=== PATIENT | female | born 1980 | race African-American/Black ===

== ENCOUNTER → 2017-09-11 10:17 | Outpatient (CLI) | payer OTHER, SELFPAY ==
[2017-09-11 12:41] LABS: T4 Free Direct 1.08 ng/dL (0.76-1.46); Thyroid Stim Hormone (TSH) 1.27 uIU/mL (0.358-3.74)
== END ==
PROVIDERS: Family Provider Internal Medicine; PCP Internal Medicine; Visit Provider Internal Medicine
DX: E04.9 Nontoxic goiter, unspecified (principal); L05.01 Pilonidal cyst with abscess
CPT/HCPCS: 36415; 84439; 84443; 87070; 87075; 87076; 87077; 87186; 87205

== ENCOUNTER 2017-10-02 16:58 | Emergency (ER) | payer OTHER, SELFPAY ==
[2017-10-02 17:00] VITALS: BP 139/68; PULSE 107; RESP 18; TEMP 39.2; O2SAT 99; BMI 82.7
[2017-10-02] MEDS: Ipratropium/Albuterol Sulfate 3 ML AMPUL.NEB INHALATION (17:38)
[2017-10-02] MEDS: Albuterol 2.5 MG/3 ML VIAL.NEB. INHALATION ×3 (17:38→17:46)
[2017-10-02 17:40] VITALS: PULSE 120; RESP 26
[2017-10-02] MEDS: Ketorolac 30 MG/ML Syringe IV (17:54)
[2017-10-02] MEDS: 0.9% Normal Saline 1,000 ML 1000 ML IV (17:54)
[2017-10-02 18:01] VITALS: BP 132/69; PULSE 115; RESP 27; O2SAT 98
--- NOTE | 2017-10-02 18:10 | RAD_ITS ---
STUDY: X-RAY CHEST REASON FOR EXAM: Female, 37 years old. C/O PAIN ALL OVER, COUGH THAT STARTED TODAY TECHNIQUE: Frontal and lateral views of the chest. COMPARISON: None. FINDINGS: The lungs are clear and expanded. There is no demonstrated pleural abnormality. Normal size heart. Normal mediastinum and francy. Normal visualized pulmonary arteries. Normal visualized aortic arch and descending thoracic aorta. Normal visualized thoracic spine. Normal visualized ribs, clavicles, and shoulders. There is no demonstrated abnormality of the visualized soft tissue structures of the upper abdomen. RAD/Chest PA and Lateral IMPRESSION: Normal x-ray examination of the chest. Electronically Signed: Miguel Cope MD at 18:29 EDT , Service support ,
[2017-10-02 18:18] LABS: Absolute Lymphocyte Count 1.37 X10^3/ul (0.83-4.51); Absolute Neutrophil Count 6.6 X10^3/uL (2.0-7.7); Basophil# 0.02 X10^3/uL; Basophil% 0.2 % (0-1); Eosinophil# 0.01 X10^3/uL; Eosinophils% 0.1 % (0-5); Hematocrit 35.7 % (37-47); Hemoglobin 11.4 g/dl (12.0-15.0); Lymphocyte # 1.37 X10^3/ul (4.0); Lymphocyte % 15.8 % (19-41); Mean Corp Hgb Conc 31.9 g/gl (32-36); Mean Corpuscular Hgb 28.1 pg (27.0-32.0); Mean Corpuscular Volume 87.9 fL (81-99); Mean Platelet Vol. 9.4 fl (6.2-12.0); Monocyte# 0.62 X10^3/uL; Monocyte% 7.2 % (0-10); Neutrophil # 6.64 X10^3/uL (2.7-7.7); Neutrophil % 76.6 % (47-70); Platelet Count 254 K/mm3 (150-450); RBC Distribution Width CV 14.2 % (11.6-14.6); RBC Distribution Width SD 45.8 fl (35.1-43.9); Red Blood Count 4.06 M/mm3 (4.2-5.4); White Blood Count 8.7 K/mm3 (4.4-11.0)
[2017-10-02 18:19] LABS: POSITIVE COUNT NO; POSITIVE DIFFERENTIAL NO; POSITIVE MORPHOLOGY NO
--- NOTE | 2017-10-02 18:34 | ED.VISSUMM ---
- ER Visit Summary Date of Service: 10/02/17 Chief Complaint: Fever, cough History of Present Illness: The patient is a 37 F urgency department fever and cough. The patient has had symptoms for the past 24 hours. States yesterday at congregation, she had some scant myalgias. States that she had a nonproductive cough. Overnight throughout the day, the cough is worsened. She has begun to have increasing fevers, back pain, myalgias, and arthralgias. She has had productive sputum. She does have a history of asthma. She denies any history of immunosuppression. She denies any history of diabetes. She did not get a flu shot this year. She is unsure if she has had recent sick contacts. Physical Examination: Vital signs reviewed General: Well-nourished, well-developed Head: Normocephalic, atraumatic Eyes: Pupils equal and reactive, extraocular muscles intact Neck, supple, no lymphadenopathy Heart: Regular rate and rhythm Respiratory: No distress, wheezing in all sullivan Abdomen: Soft, nontender, nondistended, no peritoneal signs Back: Nontender Extremities: Nontender, no edema, no cords Skin: Normal color no rash Neuro: Alert and oriented, no focal or lateralizing deficits Test Results: [] Emergency Department Course and Treatment: The patient's symptoms do seem consistent with influenza. However, she was febrile here. She was given fluids, breathing treatments, Toradol. On reevaluation her aeration had improved. She was resting more comfortably. Her tachycardia had resolved. I did obtain screening labs. Her chest x-ray shows no acute infiltrate. The patient was influenza A positive. At this time, I am going to start the patient on Tamiflu if she is within the window after discussion with her. The patient will be discharged home. She was counseled on concerning symptoms, respiratory symptoms, and reasons to return. Family is comfortable with plan of care. Treatment Plan: [] Disposition: Discharge Impression:. Influenza This note was generated with [employer] stars dictation software. It may contain incorrect words, spelling, and punctuation that were not noted in review of the chart prior to signing ED Disposition - Plan for ED Patient: Chief Complaint: Fever Instructions: ED Flu Prescriptions: Oseltamivir Phosphate [Tamiflu] 75 mg PO BID #10 cap Referrals: Shayna Quigley MD [Primary Care Provider] -
[2017-10-02 18:43] LABS: ALB/GLOB Ratio 0.6 RATIO (0.9-2.4); AST(SGOT) 17 U/L (15-37); Alanine Aminotransfer ALT/SGPT 17 U/L (13-56); Albumin, Serum 2.9 g/dL (3.2-5.0); Alkaline Phosphatase 87 U/L (45-117); Anion Gap 6 (5-15); BUN 11 mg/dL (7-18); BUN/Creat Ratio 13.3 RATIO (10-20); Chloride 104 mmol/L (98-107); Creatinine, Serum 0.82 mg/dL (0.55-1.02); EST Glomerular Filtration Rate 83 mL/min (>60); Est Glom Filt Rate - Afr Amer 101 mL/min (>60); Globulin 4.7 g/dL (2.2-4.2); Glucose 99 mg/dL (74-106); Potassium 4.2 mmol/L (3.5-5.1); Protein, Total 7.6 g/dL (6.4-8.2); Sodium Level 137 mmol/L (136-145)
[2017-10-02] MEDS: Oseltamivir Phosphate 75 MG Capsule PO (19:25)
[2017-10-02 19:29] VITALS: BP 91/58; PULSE 106; RESP 20; O2SAT 97
== END 2017-10-02 19:31 | disposition home or self-care (01) ==
PROVIDERS: Emergency Provider Emergency Medicine; Family Provider Internal Medicine; PCP Internal Medicine
DX: J09.X2 Influenza due to identified novel influenza A virus with other respiratory manifestations (principal); E66.9 Obesity, unspecified; J45.909 Unspecified asthma, uncomplicated; Z79.51 Long term (current) use of inhaled steroids
CPT/HCPCS: 31720; 71046; 80053; 85025; 87804; 94640; 96361; 96374; 99284; J7030; A4216

== ENCOUNTER 2017-11-01 09:46 | Outpatient (RCR) | payer OTHER, SELFPAY | END 2017-11-06 23:59 | LOC: NS 09:46 | PROVIDERS: Family Provider Internal Medicine; PCP Internal Medicine; Visit Provider Internal Medicine | DX: E66.01 Morbid (severe) obesity due to excess calories (principal); Z68.45 Body mass index [BMI] 70 or greater, adult; Z71.3 Dietary counseling and surveillance | CPT/HCPCS: 97803 ==

== ENCOUNTER 2017-11-27 10:30 | Outpatient (RCR) | payer OTHER, SELFPAY | END 2017-12-07 23:59 | LOC: NS 10:30 | PROVIDERS: Family Provider Internal Medicine; PCP Internal Medicine; Visit Provider Internal Medicine | DX: E66.01 Morbid (severe) obesity due to excess calories (principal); Z68.45 Body mass index [BMI] 70 or greater, adult; Z71.3 Dietary counseling and surveillance | CPT/HCPCS: 97803 ==

== ENCOUNTER 2018-01-03 13:30 | Outpatient (RCR) | payer OTHER, SELFPAY ==
--- NOTE | 2017-12-18 16:58 | DT_ITS ---
This patient was seen during an EMR downtime December 11, 2017 - December 18, 2017. This patient may have a combination of paper and electronic documentation or all paper documentation. All documentation is viewable within the e-chart portion of [facility] for each patient visit.
== END 2018-01-06 23:59 ==
LOC: NS 13:30
PROVIDERS: Family Provider Internal Medicine; PCP Internal Medicine; Visit Provider Internal Medicine
DX: E66.01 Morbid (severe) obesity due to excess calories (principal); Z68.45 Body mass index [BMI] 70 or greater, adult; Z71.3 Dietary counseling and surveillance
CPT/HCPCS: 97803

== ENCOUNTER 2018-01-31 10:30 | Outpatient (RCR) | payer OTHER, SELFPAY | END 2018-02-06 23:59 | LOC: NS 10:30 | PROVIDERS: Family Provider Internal Medicine; PCP Internal Medicine; Visit Provider Internal Medicine | DX: E66.01 Morbid (severe) obesity due to excess calories (principal); Z68.45 Body mass index [BMI] 70 or greater, adult; Z71.3 Dietary counseling and surveillance | CPT/HCPCS: 97803 ==

== ENCOUNTER 2018-02-21 08:54 | Outpatient (RCR) | payer OTHER, SELFPAY | END 2018-03-09 23:59 | LOC: NS 08:54 | PROVIDERS: Family Provider Internal Medicine; PCP Internal Medicine; Visit Provider Internal Medicine | DX: E66.01 Morbid (severe) obesity due to excess calories (principal); Z68.45 Body mass index [BMI] 70 or greater, adult; Z71.3 Dietary counseling and surveillance | CPT/HCPCS: 97803 ==

== ENCOUNTER 2018-03-14 08:32 | Outpatient (RCR) | payer OTHER, SELFPAY | END 2018-03-14 23:59 | disposition home or self-care (01) | LOC: NS 08:32 | PROVIDERS: Family Provider Internal Medicine; PCP Internal Medicine; Visit Provider Internal Medicine | DX: E66.01 Morbid (severe) obesity due to excess calories (principal); Z68.45 Body mass index [BMI] 70 or greater, adult; Z71.3 Dietary counseling and surveillance | CPT/HCPCS: 97803 ==

== ENCOUNTER 2018-06-15 16:58 | Emergency (ER) | payer MEDICAID, SELFPAY ==
[2018-06-15 16:59] VITALS: BP 101/70; PULSE 65; RESP 12; TEMP 36.6; O2SAT 95; BMI 71.4
--- NOTE | 2018-06-15 17:14 | EKG12_ITS ---
Test Reason : CHEST PAIN Blood Pressure : / mmHG Vent. Rate : 069 BPM Atrial Rate : 069 BPM P-R Int : 200 ms QRS Dur : 090 ms QT Int : 430 ms P-R-T Axes : 060 048 021 degrees QTc Int : 460 ms Normal sinus rhythm with sinus arrhythmia Normal ECG Confirmed by FERNANDO MCKEE, ASHWINI ([id number]), book or script editor OZZY GUTIERRES ([id number]) on 06/18/2018 2:03:31 PM Referred By: DEREJE Confirmed By:ASHWINI KING MD
--- NOTE | 2018-06-15 17:15 | US_ITS ---
STUDY: ABDOMINAL ULTRASOUND - RIGHT UPPER QUADRANT REASON FOR VISIT: Female, 38 years old. Upper abdominal pain TECHNIQUE: Ultrasound evaluation of the right upper quadrant was performed with real-time and static payton-scale imaging. TECHNICAL QUALITY: Adequate. COMPARISON: April 22, 2010 FINDINGS: Liver: The liver measures 18 cm. There is normal echogenicity of the liver. The bile ducts are dilated. There is hepatic color flow. The direction of portal flow is hepatopetal. There is no demonstrated mass lesion. Gallbladder: Normal distended gallbladder. The gallbladder wall measures 3 mm. There is a negative sonographic Falcon's sign. There is no pericholecystic fluid. 2.5 cm gallstone in the neck. Gallbladder sludge. Common Bile Duct (C.B.D.): The common bile duct measures 5 mm. Pancreas: Tail not visualized due to bowel gas. Right Kidney: Normal size of the right kidney. The right kidney measures 12.1 cm. Normal renal cortex. The right cortex measures 2 cm. There is no demonstrated renal mass or cyst. There is no right hydronephrosis. US/Gallbladder IMPRESSION: Gallstone and possible cholecystitis and possible choledocholithiasis. Recommend follow-up HIDA scan and/or MRCP. Electronically Signed: Hernan Urias MD at 18:35 EST , Service support ,
--- NOTE | 2018-06-15 17:36 | ED.VISSUMM ---
- ER Visit Summary Date of Service: 06/15/18 Chief Complaint: Abdominal pain History of Present Illness: The patient is a 38 F presenting with abdominal pain. She states this started just after eating salami and cheese balls. She began having severe epigastric discomfort. She had nausea associated with this. She had no vomiting. She states the symptoms are starting to resolve. She has no known medical problems. Denies other complaints. Physical Examination: Vitals are stable. Patient is afebrile. Alert no acute distress. HEENT exam is unremarkable. Neck is supple. Lungs are clear and equal bilaterally. Heart is regular rate and rhythm. Abdomen is soft mild epigastric tenderness with no rebound or guarding. Extremities are unremarkable. Skin is warm and dry. Remainder of exam is unremarkable. Emergency Department Course and Treatment: EKG is sinus rate of 69 with no acute ischemic changes. CBC, chemistries unremarkable. Alk phos 123, AST 50, lipase is 53. Troponin is negative. Gallbladder ultrasound shows gallstone and possible cholecystitis and possible choledocholithiasis. Recommend follow-up HIDA scan and/or MRCP. Patient started to have pain again and was given morphine, Zofran. She was given Zosyn IV. Discussed with Dr. Silver. She recommends transfer to a tertiary care center. Discussed with [facility] for transfer. Disposition: Transfer [facility] Impression: Gallstones, abdominal pain This note was generated with alike dictation software. It may contain incorrect words, spelling, and punctuation that were not noted in review of the chart prior to signing ED Disposition - Plan for ED Patient: Chief Complaint: Abd Pain Referrals: Shayna Quigley MD [Primary Care Provider] -
[2018-06-15 17:50] LABS: Absolute Lymphocyte Count 1.99 X10^3/ul (0.83-4.51); Absolute Neutrophil Count 5.2 X10^3/uL (2.0-7.7); Basophil# 0.02 X10^3/uL; Basophil% 0.3 % (0-1); Eosinophil# 0.08 X10^3/uL; Hematocrit 37.1 % (37-47); Hemoglobin 11.8 g/dl (12.0-15.0); Lymphocyte # 1.99 X10^3/ul (4.0); Lymphocyte % 25.6 % (19-41); Mean Corp Hgb Conc 31.8 g/gl (32-36); Mean Corpuscular Hgb 28.4 pg (27.0-32.0); Mean Corpuscular Volume 89.2 fL (81-99); Mean Platelet Vol. 10.7 fl (6.2-12.0); Monocyte# 0.51 X10^3/uL; Monocyte% 6.6 % (0-10); Neutrophil # 5.15 X10^3/uL (2.7-7.7); Neutrophil % 66.4 % (47-70); Platelet Count 273 K/mm3 (150-450); RBC Distribution Width CV 15.1 % (11.6-14.6); Red Blood Count 4.16 M/mm3 (4.2-5.4); White Blood Count 7.8 K/mm3 (4.4-11.0)
[2018-06-15 18:02] LABS: POSITIVE COUNT NO; POSITIVE DIFFERENTIAL NO; POSITIVE MORPHOLOGY NO
[2018-06-15 18:08] LABS: AST(SGOT) 50 U/L (15-37); Alanine Aminotransfer ALT/SGPT 25 U/L (13-56); Alkaline Phosphatase 123 U/L (45-117); Anion Gap 6 (5-15); BUN 11 mg/dL (7-18); BUN/Creat Ratio 16.2 RATIO (10-20); Bilirubin, Direct 0.05 mg/dL (0.00-0.30); Calcium,Total 8.2 mg/dL (8.5-10.1); Chloride 107 mmol/L (98-107); Creatinine, Serum 0.68 mg/dL (0.55-1.02); EST Glomerular Filtration Rate 103 mL/min (>60); Est Glom Filt Rate - Afr Amer 125 mL/min (>60); Estimated Creatinine Clearance 97.81 ml/min; Globulin 4.4 g/dL (2.2-4.2); Glucose 103 mg/dL (74-106); Lipase 53 U/L (73-393); Protein, Total 7.4 g/dL (6.4-8.2); Sodium Level 140 mmol/L (136-145)
[2018-06-15] MEDS: Morphine 4 MG/ML Syringe IV (18:37)
[2018-06-15] MEDS: Ondansetron 4 MG/2 ML Vial IV (18:37)
[2018-06-15 19:24] VITALS: BP 80/44; PULSE 80; RESP 18; O2SAT 99
--- NOTE | 2018-06-15 20:12 | ED.RN ---
CALLED FOR TRANSPORT FOR A BARIATRIC PATIENT, CALLED [facility] THEY HAVE THE BARIATRIC COT IN THE AREA, THEY ADVISED IT MAY NOT HAPPEN TILL IN THE MORNING
--- NOTE | 2018-06-15 20:27 | ED.RN ---
SPOKE TO [facility], NONE OF THESE HAVE A BARIATRIC COT TO TAKE THIS TRANSPORT. PATIENT IS ABLE TO SELF TRANSPORT AND DR PETIT IS OK WITH THIS OPTION
[2018-06-15] MEDS: Piperacil/Tazobactam 3.375 GM/50 ML ML IV (20:30)
[2018-06-15 21:37] VITALS: BP 95/55; PULSE 59; RESP 17; O2SAT 96
[2018-06-15 22:25] VITALS: PULSE 62
== END 2018-06-15 22:26 | disposition short-term general hospital (02) ==
PROVIDERS: Emergency Provider Emergency Medicine; Family Provider Internal Medicine; PCP Internal Medicine
DX: K80.20 Calculus of gallbladder without cholecystitis without obstruction (principal); R10.13 Epigastric pain
CPT/HCPCS: 76705; 80048; 80076; 83690; 84484; 85025; 93005; 96365; 96375; 99285; J7050; A4216; J2405

== ENCOUNTER 2018-06-19 14:59 | Emergency (ER) | payer MEDICAID, SELFPAY ==
[2018-06-19 15:00] VITALS: BP 127/88; PULSE 66; RESP 16; TEMP 36.4; O2SAT 97; BMI 74.4
--- NOTE | 2018-06-19 15:14 | US_ITS ---
STUDY: ABDOMINAL ULTRASOUND - RIGHT UPPER QUADRANT REASON FOR VISIT: Female, 38 years old. Upper abdominal pain TECHNIQUE: Ultrasound evaluation of the right upper quadrant was performed with real-time and static payton-scale imaging. TECHNICAL QUALITY: Adequate. COMPARISON: June 15, 2018 ultrasound gallbladder FINDINGS: Liver: The liver measures 12.7 cm. There is normal echogenicity of the liver. Is mild intrahepatic ductal dilatation. There is hepatic color flow. The direction of portal flow is hepatopetal. There is no demonstrated mass lesion. Gallbladder: The gallbladder is distended. There is a shadowing stone within the gallbladder that measures 2.4 x 0.9 cm. The gallbladder wall measures 2.9 mm. There is a negative sonographic Falcon's sign. There is no pericholecystic fluid. Common Bile Duct (C.B.D.): The common bile duct measures 5 mm. Pancreas: Normal size of the head, body of the pancreas. There is normal echogenicity of the pancreas. There is no demonstrated pancreatic mass or cyst. The tail the pancreas is not well-visualized. Right Kidney: Normal size of the right kidney. The right kidney measures 12.6 x 5.3 x 3.8 cm. Normal renal cortex. The right cortex measures 1.4 cm. There is no demonstrated renal mass or cyst. There is no right hydronephrosis. US/Gallbladder IMPRESSION: Mild intra and extrahepatic ductal dilatation. 5 mm common duct. Cholelithiasis, solitary large stone in the gallbladder. The sonographic Falcon sign is described as negative. Could consider chronic cholecystitis. Recommend consideration for HIDA scan. Hepatomegaly. No evidence of hydronephrosis. Electronically Signed: Radha Mix MD at 16:27 EST Tel , Service support ,
[2018-06-19] MEDS: Ketorolac 30 MG/ML Syringe 15 MG IV ×2 (15:33→17:25)
--- NOTE | 2018-06-19 15:44 | NURSING ---
FAXED RELEASE OF INFO TO [facility] FOR PAST WEEKEND
[2018-06-19 15:52] LABS: Absolute Lymphocyte Count 2.07 X10^3/ul (0.83-4.51); Absolute Neutrophil Count 3.7 X10^3/uL (2.0-7.7); Basophil# 0.02 X10^3/uL; Basophil% 0.3 % (0-1); Eosinophil# 0.07 X10^3/uL; Eosinophils% 1.1 % (0-5); Hematocrit 36.4 % (37-47); Hemoglobin 11.7 g/dl (12.0-15.0); Lymphocyte # 2.07 X10^3/ul (4.0); Lymphocyte % 32.6 % (19-41); Mean Corp Hgb Conc 32.1 g/gl (32-36); Mean Corpuscular Hgb 28.5 pg (27.0-32.0); Mean Corpuscular Volume 88.8 fL (81-99); Mean Platelet Vol. 10.9 fl (6.2-12.0); Monocyte# 0.45 X10^3/uL; Monocyte% 7.1 % (0-10); Neutrophil # 3.73 X10^3/uL (2.7-7.7); Neutrophil % 58.7 % (47-70); Platelet Count 248 K/mm3 (150-450); RBC Distribution Width CV 14.5 % (11.6-14.6); RBC Distribution Width SD 46.5 fl (35.1-43.9); White Blood Count 6.4 K/mm3 (4.4-11.0)
[2018-06-19 16:05] LABS: ALB/GLOB Ratio 0.7 RATIO (0.9-2.4); AST(SGOT) 26 U/L (15-37); Alanine Aminotransfer ALT/SGPT 26 U/L (13-56); Albumin, Serum 3.1 g/dL (3.2-5.0); Alkaline Phosphatase 132 U/L (45-117); Anion Gap 6 (5-15); BUN 15 mg/dL (7-18); BUN/Creat Ratio 20.4 RATIO (10-20); Calcium,Total 8.5 mg/dL (8.5-10.1); Chloride 107 mmol/L (98-107); Creatinine, Serum 0.74 mg/dL (0.55-1.02); EST Glomerular Filtration Rate 94 mL/min (>60); Est Glom Filt Rate - Afr Amer 114 mL/min (>60); Estimated Creatinine Clearance 89.88 ml/min; Globulin 4.6 g/dL (2.2-4.2); Glucose 84 mg/dL (74-106); Lipase 63 U/L (73-393); POSITIVE COUNT NO; POSITIVE DIFFERENTIAL NO; POSITIVE MORPHOLOGY NO; Potassium 4.2 mmol/L (3.5-5.1); Protein, Total 7.7 g/dL (6.4-8.2); Sodium Level 139 mmol/L (136-145)
--- NOTE | 2018-06-19 16:53 | ED.VISSUMM ---
- ER Visit Summary Date of Service: 06/19/18 Chief Complaint: Abdominal pain History of Present Illness: The patient is a 38 F presenting for evaluation secondary to abdominal pain. Patient was actually in the emergency department on Monday secondary to a similar episode. Her workup showed concern for the possibility of choledocholithiasis, so the patient was sent to [facility] for further workup. Patient states that she had a full workup, and was discharged with recommended outpatient follow-up with surgery. Patient states that she was pain-free, and then this afternoon at about 230 she had a sudden onset epigastric and right upper quadrant abdominal pain. It was not associated with any sort of fever nausea vomiting or diarrhea. Review of systems otherwise negative. Physical Examination: Vital signs within normal limits. Physical exam unremarkable except for examination the patient's abdomen. Patient has epigastric and right upper quadrant tenderness with a negative Falcon sign and no guarding. Test Results: CBC shows no acute leukocytosis, chemistry unremarkable except for alkaline phosphatase of 132 lipase normal right upper quadrant ultrasound shows cholelithiasis Emergency Department Course and Treatment: Patient presented secondary to right upper quadrant abdominal pain. I was able to obtain the patient's records from the outside facility, and she received a HIDA scan 2 days ago that showed normal gallbladder function. Patient's workup today shows no evidence of acute cholecystitis. I believe the patient likely is having biliary colic secondary to her gallstone. She will be sent home with as needed Toradol, and recommendations for outpatient follow-up with general surgery and a low-fat diet. Disposition: Discharge Impression: 1. Biliary colic This note was generated with [employer] dictation software. It may contain incorrect words, spelling, and punctuation that were not noted in review of the chart prior to signing ED Disposition - Plan for ED Patient: Disposition: Home or Assisted Living Chief Complaint: Abd Pain Diagnosis: Biliary colic Instructions: ED Abdominal Pain Gallstone Poss Prescriptions: Ketorolac [Toradol] 10 mg PO Q6H #20 tab Additional Instructions: Followup with your Surgeon at [facility]
--- NOTE | 2018-06-19 16:57 | ED.DCSUM_ITS ---
- ER Visit Summary Date of Service: 06/19/18 Chief Complaint: Abdominal pain History of Present Illness: The patient is a 38 F presenting for evaluation secondary to abdominal pain. Patient was actually in the emergency department on Monday secondary to a similar episode. Her workup showed concern for the possibility of choledocholithiasis, so the patient was sent to [facility] for further workup. Patient states that she had a full workup, and was discharged with recommended outpatient follow-up with surgery. Patient states that she was pain-free, and then this afternoon at about 230 she had a sudden onset epigastric and right upper quadrant abdominal pain. It was not associated with any sort of fever nausea vomiting or diarrhea. Review of systems otherwise negative. Physical Examination: Vital signs within normal limits. Physical exam unremarkable except for examination the patient's abdomen. Patient has epigastric and right upper quadrant tenderness with a negative Falcon sign and no guarding. Test Results: CBC shows no acute leukocytosis, chemistry unremarkable except for alkaline phosphatase of 132 lipase normal right upper quadrant ultrasound shows cholelithiasis Emergency Department Course and Treatment: Patient presented secondary to right upper quadrant abdominal pain. I was able to obtain the patient's records from the outside facility, and she received a HIDA scan 2 days ago that showed normal gallbladder function. Patient's workup today shows no evidence of acute cholecystitis. I believe the patient likely is having biliary colic secondary to her gallstone. She will be sent home with as needed Toradol, and recommendations for outpatient follow-up with general surgery and a low-fat diet. Disposition: Discharge Impression: 1. Biliary colic This note was generated with [employer] dictation software. It may contain incorrect words, spelling, and punctuation that were not noted in review of the chart prior to signing ED Disposition - Plan for ED Patient: Disposition: Home or Assisted Living Chief Complaint: Abd Pain Diagnosis: Biliary colic Instructions: ED Abdominal Pain Gallstone Poss Prescriptions: Ketorolac [Toradol] 10 mg PO Q6H #20 tab Additional Instructions: Followup with your Surgeon at [facility]
[2018-06-19 17:33] VITALS: BP 139/81; PULSE 89; RESP 16; O2SAT 100
--- OUTSIDE RECORDS SUMMARY | 2018-08-05 22:59 | XMS RPT_ITS ---
:1980 Author Organization OHIP Support Name Relationship Address Phone DENISSEAMPARO Unavailable [address] + [address] [place] [address] UE Unavailable Unavailable Unavailable AMPARO SALCEDO Unavailable [address] + [address] [place] [address] UE Unavailable Unavailable Unavailable AMPARO SALCEDO Unavailable [address] + [address] [place] [address] UE Unavailable Unavailable Unavailable AMPARO SALCEDO Unavailable [address] + [place] [address] ONEEIGHTY Unavailable [address] + [address] [place] [address] AMPARO SALCEDO Unavailable [address] + [place] [address] ONEEIGHTY Unavailable [address] + [address] [place] [address] AMPARO SALCEDO Unavailable [address] + [place] [address] ONEEIGHTY Unavailable [address] + [address] [place] [address] AMPARO SALCEDO Unavailable [address] + [place] [address] ONEEIGHTY Unavailable [address] + [address] [place] [address] AMPARO SALCEDO Unavailable [address] + [place] [address] ONEEIGHTY Unavailable [address] + [address] [place] [address] AMPARO SALCEDO Unavailable [address] + [place] [address] ONEEIGHTY Unavailable [address] + [address] [place] [address] AMPARO SALCEDO Unavailable [address] + [place] [address] ONEEIGHTY Unavailable [address] + [address] [place] [address] AMPARO SALCEDO Unavailable [address] + [place] [address] ONEEIGHTY Unavailable [address] + [address] [place] [address] AMPARO SALCEDO Unavailable [address] + [place] [address] ONEEIGHTY Unavailable [address] + [address] [place] [address] AMPARO SALCEDO Unavailable [address] + [place] [address] ONEEIGHTY Unavailable [address] + [address] [place] [address] AMPARO SALCEDO Unavailable [address] + [place] [address] ONEEIGHTY Unavailable [address] + [address] [place] [address] [facility] + [place] [address] AMPARO SALCEDO Unavailable [address] + [place] [address] [facility] + [place] [address] AMPARO SALCEDO Unavailable [address] + [place] [address] AMPARO SALCEDO Unavailable [address] + [place] [address] ONEEIGHTY Unavailable [address] + [address] [place] [address] [facility] Un[address] + [place] [address] AMPARO SALCEDO Unavailable [address] + [place] [address] [facility] + [place] [address] AMPARO SALCEDO Unavailable [address] + [place] [address] Care Team Providers Name Role Phone Oleghe, Efewongbe Primary Care Unavailable French Buckley Attending Unavailable Oleghe, Efewongbe Attending Unavailable Oleghe, Efewongbe Referring Unavailable Oleghe, Efewongbe Primary Care Unavailable Robotham, Rosamaria Consulting Unavailable Oleghe, Efewongbe Attending Unavailable Oleghe, Efewongbe Referring Unavailable Oleghe, Efewongbe Primary Care Unavailable Oleghe, Efewongbe Attending Unavailable Oleghe, Efewongbe Referring Unavailable Oleghe, Efewongbe Primary Care Unavailable Oleghe, Efewongbe Attending Unavailable Oleghe, Efewongbe Referring Unavailable Oleghe, Efewongbe Primary Care Unavailable Oleghe, Efewongbe Attending Unavailable Oleghe, Efewongbe Referring Unavailable Oleghe, Efewongbe Primary Care Unavailable Oleghe, Efewongbe Attending Unavailable Oleghe, Efewongbe Referring Unavailable Oleghe, Efewongbe Primary Care Unavailable Oleghe, Efewongbe Attending Unavailable Oleghe, Efewongbe Referring Unavailable Oleghe, Efewongbe Primary Care Unavailable Oleghe, Efewongbe Attending Unavailable Oleghe, Efewongbe Referring Unavailable Oleghe, Efewongbe Attending Unavailable Oleghe, Efewongbe Referring Unavailable Robotham, Rosamaria Attending Unavailable Erick Stoner Referring Unavailable Oleghe, Efewongbe Primary Care Unavailable Violet Álvarez Attending Unavailable Oleghe, Efewongbe Attending Unavailable Oleghe, Efewongbe Referring Unavailable Oleghe, Efewongbe Attending Unavailable Oleghe, Efewongbe Referring Unavailable Oleghe, Efewongbe Primary Care Unavailable Oleghe, Efewongbe Attending Unavailable Oleghe, Efewongbe Referring Unavailable Oleghe, Efewongbe Primary Care Unavailable Oleghe, Efewongbe Attending Unavailable Oleghe, Efewongbe Referring Unavailable Oleghe, Efewongbe Primary Care Unavailable Oleghe, Efewongbe Primary Care Unavailable French Fernandez Attending Unavailable Rosamaria Silver Attending Unavailable Oleghe, Efewongbe Referring Unavailable Oleghe, Efewongbe Primary Care Unavailable Oleghe, Efewongbe Attending Unavailable Oleghe, Efewongbe Referring Unavailable Oleghe, Efewongbe Primary Care Unavailable BOBBI NICHOLAS Admitting Unavailable BOBBI NICHOLAS Attending Unavailable SOUTHERN, VIOLET GOLDSTEIN Admitting Unavailable SOUTHERNVIOLET Attending Unavailable SOUTHERN, VIOLET GOLDSTEIN Referring Unavailable IMCA Primary Care Unavailable IMCA Primary Care Unavailable BOBBI NICHOLAS Admitting Unavailable BOBBI NICHOLAS Attending Unavailable PROBLEMS PROBLEMS DATE TYPE CONDITION / CODE ATTENDING STATUS SOURCE 06/26/2018 Unknown E66.01 - Morbid Oleghe, Active [place] (severe) obesity [facility] due to excess Hospital calories / Repository E66.01(ICD-10) 07/05/2018 Unknown R10.13 - French Buckley Active [place] Epigastric pain / Community R10.13(ICD-10) Hospital Repository 06/15/2018 Active Cholecystitis, BOBBI NICHOLAS Active [facility] unspecified / [facility] K81.9(ICD-10) Repository 06/15/2018 Admitting Unknown / SOUTHERN, Active [place] General diagnosis UNK(Unknown) [facility] Repository 07/05/2018 Unknown R10.9 - Southern, Active [place] Unspecified [facility] abdominal pain / Hospital R10.9(ICD-10) Repository 01/29/2018 Unknown E66.9 - Obesity, Oleghe, Active [place] unspecified / [place] Community E66.9(ICD-10) Hospital Repository 12/26/2017 Unknown M19.90 - Oleghe, Active [place] Unspecified [facility] osteoarthritis, Hospital unspecified site Repository / M19.90(ICD-10) 12/26/2017 Unknown M25.569 - Pain in Oleghe, Active [place] unspecified knee [facility] / M25.569(ICD-10) Hospital Repository 10/12/2017 Unknown L05.01 - Oleghe, Active [place] Pilonidal cyst [facility] with abscess / Hospital L05.01(ICD-10) Repository 09/05/2017 Unknown 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, 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, [facility] unspecified / Hospital E04.9(ICD-10) Repository 09/05/2017 Unknown L05.92 - Oleghe, Active [place] Pilonidal sinus [facility] without abscess / Hospital L05.92(ICD-10) Repository PROCEDURES PROCEDURES No Procedure Records FoundRESULTS RESULTS INTERNAL MEDICINE Observed: 06/29/2018 Status: F Source: [place] OFFICE VISIT 8:37 AM [facility] REPOSITORY [facility] [address] [place] [address] OFFICE VISIT Date of Service: 06/26/18 MR#: [id number] Acct: [id number] Name: RICKY SALCEDO Rep #: [id number] : 1980 Provider: Shayna Quigley MD Age/Sex: 38/F Location: [facility] [place].[facility] Status: Signed Intake Vital Signs06/26/18 Body Mass Index (BMI) 74.4 06/26/18 Height 5 ft 4 in 06/26/18 Weight: 414 lb 06/26/18 Body Mass Index (BMI) 71.0 06/26/18 Blood Pressure 121/78 H Intake Visit Reasons: fu ER- gallbladder Chief Complaint: fu ER Gallbladder - Waiting on Surgeon to call Is patient in pain?: No Allergies No Known Allergies Allergy (Verified 06/26/18 11:30) Medications Herbal Weightloss Supplement 06/19/18 [History Confirmed 06/26/18] PFSH Family History Mother Myocardial infarction Hypertension Grandmother Hypertension Social History Smoking Status: Never smoker alcohol intake: never substance use type: does not use what type of physical activity do you participate in: none HPI HPI Chief Complaint: fu ER Gallbladder - Waiting on Surgeon to call Details: RICKY SALCEDO, is a 38yo F who presents to the office today for follow-up of recent ER visit. She was seen due to worsening right upper quadrant pain and was noted to have acute cholecystitis for which she was referred to [facility]. She was managed conservatively at [facility] and discharged with recommendations to follow- up with general surgery. She however had another episode for which she represented to the ER and was again managed conservatively. She denies any pain at this time. She has altered her diet. ROS Const Constitutional: No chills, fatigue, fever(s), frequent falls, malaise, weakness, sleep problems or change in appetite Eyes Eyes: No blurry vision, change in vision, double vision, discharge or visual disturbances ENT ENT: No abnormal hearing, ear pain, ear pressure, tinnitus or dizziness/vertigo Resp Respiratory: No cough, shortness of breath or wheezing Cardio Cardiology: No chest pain at rest, chest pain with exertion, shortness of breath, dyspnea on exertion, generalized swelling, irregular heart rhythm, lightheadedness, orthopnea, fast heart rate or palpitations Gastro GI: No abdominal pain, change in bowel habits, constipation, diarrhea, nausea/dyspepsia or vomiting Genitourinary-Female: No difficulty urinating, burning urination, painful urination, urinary incontinence, urinary frequency, urinary urgency, urinary hesitancy, urinary retention, Frequent nighttime urination/ nocturia, sexual problems, genital lesions, abnormal vaginal bleeding, pelvic pain, vaginal dryness, vaginal odor or Vaginal Itching Musc Musculoskeletal: No joint pain, back pain, joint swelling, limited range of motion, numbness or tingling Skin Skin: No change in skin color, itching, rash or wounds Breast Breast: No breast lump or breast pain Neuro Neurology: No frequent falls, weakness, visual disturbances, abnormal hearing, numbness, tingling, unsteady gait/balance, dizziness, loss of vision or memory loss Psych Psychiatric: No change in appetite, No memory loss, No anxiety, No depression, No Thoughts of harming yourself/Others Endo Endocrine: No fatigue, heat intolerance, increased thirst/drinking, increased hunger or increased urination Aller/Imm Allergy/Immunologic: No wheezing, itchy eyes or seasonal allergy symptoms Kameron/Lymp Hematologic/Lymphatic: No easy bleeding, easy bruising or enlarged lymph nodes Exam Const General: cooperative, no acute distress Nutritional Appearance: obese morbidly obese Orientation: alert, awake, oriented x3 HENMT Head: normal to inspection, normocephalic, atraumatic Ears: hearing grossly normal bilaterally Neck Neck: full ROM, no lymphadenopathy Thyroid: diffusely enlarged Resp Effort AND Inspection: normal respiratory effort, able to speak in complete sentences Auscultation: Bilateral: Clear to Auscultation Cardio Rate: regular rate Rhythm: regular rhythm Heart Sounds: S1 normal, S2 normal GI Inspection: obesity Palpation: soft (Nontender.) Other: No palpable masses appreciated. Other: Neuro General: alert, awake, oriented x3, moves all extremities, CN's II-XI intact bilaterally Psych Appearance: grossly normal Mental Status: mental status grossly normal Affect: normal affect Assessment AND Plan 1. Cholecystitis K81.9 Plan Has had 2 episodes of right upper quadrant pain and ultrasound done was suggestive of cholelithiasis. Scheduled to follow-up with general surgery at [facility]. However asymptomatic at this time. Continue dietary modifications. Advised to call general surgery office at [facility]. 2. Morbid obesity E66.01 Plan Has lost about 64 pounds so far. She however will definitely benefit significantly from a bariatric program. Referred to [facility]. This note was generated with [employer] software. It may contain incorrect words, spelling, and punctuation that were not noted in checking the note before signing. Orders Referrals: Coding Level of Care Code Off vis,est,level 3 Diagnoses Cholecystitis K81.9 Morbid obesity E66.01 06/29/18 0837 <Electronically signed by Shayna Quigley MD> Date Shayna Quigley MD Cosigner Signature: Date (if applicable) CC: SELENA Observed: 06/25/2018 Status: COMPLETED Source: [place] 12:00 AM CLINIC OTHER CAMPUS REPOSITORY Telephone (InCrowd) SHITAL SALCEDO ([id number]) 1980 F Date Time Provider Department 06/25/18 HAILY FELDMAN (EMILY) APRIL During your visit today, we recorded the following information about you: Haily Feldman APRN.CNP 06/25/2018 6:28 PM Signed Spoke with Ms. Salcedo this evening who states she is doing well 8 days post discharge. Tolerating low fat diet and having normal bowel function. Review of discharge instructions included but not limited to signs and symptoms of infection, diet, activity restriction, pain control. Ms. Salcedo states her follow up appointment is scheduled for 06/26/2018. All questions answered to pt's satisfaction. Haily Feldman APRN.CNP Emergency General Surgery 06/25/2018 6:27 PM ? Allergies As of Date: 06/25/2018 (No Known Allergies) Date Reviewed: 06/17/2018 Reviewed by: Saad SloanRn) MIKE Pepper - Fully Assessed Reason for Visit: Hospital discharge follow up [Other] Problem List As Of Date 06/25/2018 Noted Resolved Hyperlipidemia [E78.5] More... Morbid obesity [E66.01] More... Goiter [E04.9] INVALID FOR* Cholelithiasis [K80.20] INVALID FOR* Obesity, Class III, BMI >= 40 [E66.01] INVALID FOR* Encounter Status:Closed by HAILY FELDMAN on 06/25/18 EMERGENCY DEPARTMENT Observed: 06/20/2018 Status: F Source: [place] SUMMARY 12:35 AM [facility] REPOSITORY [facility] Medical Records Department [address] [place] [id number] Emergency Department Summary 06/19/18 1653 MR#: [id number] Acct: [id number] Name: RICKY SALCEDO Rep #: [id number] : 1980 38 From: French Buckley MD PCP: Shayna Quigley MD Status: DEP ER - ER Visit Summary Date of Service: 06/19/18 Chief Complaint: Abdominal pain History of Present Illness: The patient is a 38 F presenting for evaluation secondary to abdominal pain. Patient was actually in the emergency department on Monday secondary to a similar episode. Her workup showed concern for the possibility of choledocholithiasis, so the patient was sent to [facility] for further workup. Patient states that she had a full workup, and was discharged with recommended outpatient follow- up with surgery. Patient states that she was pain-free, and then this afternoon at about 230 she had a sudden onset epigastric and right upper quadrant abdominal pain. It was not associated with any sort of fever nausea vomiting or diarrhea. Review of systems otherwise negative. Physical Examination: Vital signs within normal limits. Physical exam unremarkable except for examination the patient's abdomen. Patient has epigastric and right upper quadrant tenderness with a negative Falcon sign and no guarding. Test Results: CBC shows no acute leukocytosis, chemistry unremarkable except for alkaline phosphatase of 132 lipase normal right upper quadrant ultrasound shows cholelithiasis Emergency Department Course and Treatment: Patient presented secondary to right upper quadrant abdominal pain. I was able to obtain the patient's records from the outside facility, and she received a HIDA scan 2 days ago that showed normal gallbladder function. Patient's workup today shows no evidence of acute cholecystitis. I believe the patient likely is having biliary colic secondary to her gallstone. She will be sent home with as needed Toradol, and recommendations for outpatient follow-up with general surgery and a low-fat diet. Disposition: Discharge Impression: 1. Biliary colic This note was generated with [employer]enworth dictation software. It may contain incorrect words, spelling, and punctuation that were not noted in review of the chart prior to signing ED Disposition - Plan for ED Patient: Disposition: Home or Assisted Living Chief Complaint: Abd Pain Diagnosis: Biliary colic Instructions: ED Abdominal Pain Gallstone Poss Prescriptions: Ketorolac [Toradol] 10 mg PO Q6H #20 tab Additional Instructions: Followup with your Surgeon at [facility] What to do if you have Problems For any increased pain, shortness of breath, bleeding, nausea or vomiting, chest pain, or any unexpected problems, contact your Primary Care Provider. Call [facility] ([phone]) or report to the closest Emergency Room. Call 911 if necessary. 06/20/18 0035 <Electronically signed by French Buckley MD> Date French Buckley MD Cosigner Signature (If Indicated): Date CC: Shayna Quigley MD COMPREHENSIVE METABOLIC Collected: 06/19/2018 Status: F Source: [place] 3:30 PM [facility] REPOSITORY TYPE CODE TESTS RESULT OUT OF RANGE REFERENCE UNITS LAB L501.0100 74-106 mg/dL Normal GLU 84 Result Comment: Please note revised GLUCOSE reference range effective 2017. LAB L501.1000 7-18 mg/dL Normal BUN 15 LAB L501.1100 0.55-1.02 mg/dL Normal CREAT,SERUM 0.74 Result Comment: The validity of the calculated GFR AND GFRAA in patients over 70 years has not been determined. Clinical correlation is essential. LAB L501.1110 >60 mL/min Normal EST GFR 94 Result Comment: Non- GFR Calc LAB L501.1115 >60 mL/min Normal EST GFR - AA 114 Result Comment: GFR Calc LAB L501.1255 ml/min Normal Estimated CRCL 89.88 LAB L501.1300 10-20 RATIO High BUN/CRE 20.4 LAB L501.1500 6.4-8. g/dL Normal 2 T PROT 7.7 LAB L501.1800 3.2-5. g/dL Low 0 ALB 3.1 LAB L501.1950 2.2-4. g/dL High 2 GLOB 4.6 LAB L501.2000 0.9-2. RATIO Low 4 A/G 0.7 LAB L501.2200 8.5-10 mg/dL Normal .1 CA 8.5 LAB L501.4100 15-37 U/L Normal AST 26 Result Comment: Moderate Hemolysis, Result may be falsely increased. LAB L501.4305 45-117 U/L High ALK P 132 LAB L501.4405 13-56 U/L Normal ALT 26 LAB L501.4600 0.20-1.00 mg/dL Normal T BILI 0.30 LAB L501.5300 136-145 mmol/L Normal NA 139 LAB L501.5600 3.5-5.1 mmol/L Normal K 4.2 Result Comment: Moderate Hemolysis, Result may be falsely increased. LAB L501.5900 98-107 mmol/L Normal CL 107 LAB L501.6100 21.0-32.0 mmol/L Normal CO2 26.0 LAB L501.6200 5-15 Normal 6 GAP Performed By: #### L500.4050, L501.2450 #### [facility] [address] [place], [address] LIPASE Collected: 06/19/2018 Status: F Source: [place] 3:30 PM [facility] REPOSITORY TYPE CODE TESTS RESULT OUT OF REFERENCE UNITS RANGE LAB L501.2450 73-393 U/L Low LIPASE 63 Performed By: #### L500.4050, L501.2450 #### [facility] [address] [place], [address] CBC W/DIFF, AUTOMATED Collected: 06/19/2018 Status: F Source: [place] 3:30 PM [facility] REPOSITORY TYPE CODE TESTS RESULT OUT OF RANGE REFERENCE UNITS LAB L100.1000 4.4-11.0 K/mm3 Normal WBC 6.4 LAB L100.1200 4.2-5.4 M/mm3 Low RBC 4.10 LAB L100.1300 12.0-15.0 g/dl Low HGB 11.7 LAB L100.1400 37-47 % Low HCT 36.4 LAB L100.1500 81-99 fL Normal MCV 88.8 LAB L100.1600 27.0-32.0 pg Normal MCH 28.5 LAB L100.1700 32-36 g/gl Normal MCHC 32.1 LAB L100.1810 11.6-14.6 % Normal RDW CV 14.5 LAB L100.1820 35.1-43.9 fl High RDW SD 46.5 LAB L100.1900 150-450 K/mm3 Normal PLT 248 LAB L100.2000 6.2-12.0 fl Normal MPV 10.9 LAB L100.2100 47-70 % Normal NEUT% 58.7 LAB L100.2200 19-41 % Normal LY% 32.6 LAB L100.2300 0-10 % Normal MONO% 7.1 LAB L100.2400 0-5 % Normal EO% 1.1 LAB L100.2500 0-1 % Normal BASO% 0.3 LAB L100.2550 0.0-0.9 % Normal IM GRAN % 0.200 Result Comment: IG% - Immature Granulocytes (promyelocytes, myelocytes and metamyelocytes) > 1% indicates that a LEFT SHIFT is Present. LAB L100.2620 2.0-7.7 X10 3/uL Normal Absolute Neut 3.7 LAB L100.2720 0.83-4.51 X10 3/ul Normal Absolute Lymph 2.07 Performed By: #### L100.0100 #### [facility] [address] [place], [address] GALLBLADDER Observed: 06/19/2018 Status: F Source: [place] 3:15 PM [facility] REPOSITORY [facility] Imaging Services [address] [place] [address] Gallbladder MR#: [id number] Acct: [id number] Name: RICKY SALCEDO Tawana Rep #: [id number] : 1980 F 38 From: Radha Mix MD PCP: Shayna Quigley MD Status: REG ER Study: Gallbladder Date of Exam: 06/19/18 Exam# [id number] Ordering Dr: French Buckley MD STUDY: ABDOMINAL ULTRASOUND - RIGHT UPPER QUADRANT REASON FOR VISIT: Female, 38 years old. Upper abdominal pain TECHNIQUE: Ultrasound evaluation of the right upper quadrant was performed with real-time and static payton-scale imaging. TECHNICAL QUALITY: Adequate. COMPARISON: June 15, 2018 ultrasound gallbladder FINDINGS: Liver: The liver measures 12.7 cm. There is normal echogenicity of the liver. Is mild intrahepatic ductal dilatation. There is hepatic color flow. The direction of portal flow is hepatopetal. There is no demonstrated mass lesion. Gallbladder: The gallbladder is distended. There is a shadowing stone within the gallbladder that measures 2.4 x 0.9 cm. The gallbladder wall measures 2.9 mm. There is a negative sonographic Falcon's sign. There is no pericholecystic fluid. Common Bile Duct (C.B.D.): The common bile duct measures 5 mm. Pancreas: Normal size of the head, body of the pancreas. There is normal echogenicity of the pancreas. There is no demonstrated pancreatic mass or cyst. The tail the pancreas is not well-visualized. Right Kidney: Normal size of the right kidney. The right kidney measures 12.6 x 5.3 x 3.8 cm. Normal renal cortex. The right cortex measures 1.4 cm. There is no demonstrated renal mass or cyst. There is no right hydronephrosis. US/Gallbladder IMPRESSION: Mild intra and extrahepatic ductal dilatation. 5 mm common duct. Cholelithiasis, solitary large stone in the gallbladder. The sonographic Falcon sign is described as negative. Could consider chronic cholecystitis. Recommend consideration for HIDA scan. Hepatomegaly. No evidence of hydronephrosis. Electronically Signed: Radha Mix MD at 16:27 EST Tel , Service support , CC: Shayna Quigley MD; French Buckley [employer] Manager Architect: Signed 12 LEAD ELECTROCARDIOGRAM Observed: 06/18/2018 Status: F Source: [place] 2:03 PM [facility] REPOSITORY [facility] Cardiovascular Services [address] [place] [id number] 12 Lead EKG 06/15/18 1715 MR#: [id number] Acct: [id number] Name: RICKY SALCEDO Rep #: [id number] : 1980 38 From: Derek Seay MD Attending Dr: Status: DEP ER Ordering Dr: Violet Álvarez MD Date: 06/15/18 Location: ED Sex: F AA Admitted: Test Reason : CHEST PAIN Blood Pressure : / mmHG Vent. Rate : 069 BPM Atrial Rate : 069 BPM P-R Int : 200 ms QRS Dur : 090 ms QT Int : 430 ms P-R-T Axes : 060 048 021 degrees QTc Int : 460 ms Normal sinus rhythm with sinus arrhythmia Normal ECG Confirmed by FERNANDO MCKEE, DEREK ([id number]), deputy editor in chief OZZY GUTIERRES ([id number]) on 06/18/2018 2:03:31 PM Referred By: DEREJE Confirmed By:DEREK SEAY MD 06/18/18 1403 Date Derek Seay MD CC: Violet Álvarez MD; Shayna Quigley MD Signed CNDS Observed: 06/17/2018 Status: COMPLETED Source: [place] 7:08 AM [facility] OTHER CAMPUS REPOSITORY HNO ID: [id number] Author: Sergio Phan Service: General Surgery Author Type: Resident Type: Discharge Summaries Filed: 06/17/2018 10:01 AM Note Text: DISCHARGE NOTE (Patient Admitted Less than 48 Hours) SERVICE DATE: 06/17/2018 SERVICE TIME: 7:08 AM ADMISSION DATE: 06/15/2018 DISCHARGE DISPOSITION: Home/Self Care DIET: Regular , Low Fat ACTIVITY AFTER DISCHARGE: Resume pre-hospital activity FOLLOW UP CARE REQUIRED: Bariatric Center for evaluation DISCHARGE MEDICATIONS (ONLY ACTIVATE WHEN READY TO DISCHARGE): There are no discharge medications for this patient. FINAL DIAGNOSIS: RUQ Pain, Cholelithiasis SIGNATURE: Sergio Phan MD PATIENT NAME: Shital Salcedo DATE: June 17, 2018 TIME: 7:08 AM PAGER: [phone] PROGRESS Observed: 06/17/2018 Status: COMPLETED Source: [place] 6:25 AM [facility] [place] REPOSITORY HNO ID: [id number] Author: Danielle Amaro Service: General Surgery Author Type: Physician Type: Progress Notes Filed: 06/18/2018 11:36 AM Note Text: Emergency General Surgery (EGS) Progress Note SERVICE DATE: 06/17/2018 Emergency General Surgery Service Pager: For questions or concerns Mon-Fri 6a-5p please page [phone]. After 5pm and on Weekends and Holidays, please page [phone] if in ICU or [phone] if on RNF. SUBJECTIVE: No pain, hungry and asking for food Tolerating diet DIET NPO Nausea No Emesis No Flatus Yes Bowel movement No Pain Controlled Yes Ambulating Yes OBJECTIVE: Vitals: Temp (24hrs), Av.7 ?C (98 ?F), Min:36.6 ?C (97.9 ?F), Max:36.7 ?C (98.1 ?F) BP 103/67 Pulse 71 Temp 36.6 ?C (97.9 ?F) (Temporal Artery) Resp 18 Ht 162.6 cm (5' 4) Wt (!) 195 kg (429 lb 14.4 oz) SpO2 100% BMI 73.79 kg/m? O2 Therapy: Room Air IANDO: Date 06/16/18699 - 06/17/18 0659 06/17/18699 - 06/18/18 0659 Shift 4497-9985 2639-3347 9539-7105 24 Hour Total 6276-0886 5622-6932 0583-3943 24 Hour Total I N T A K E Shift Total O U T P U T Urine Urine Not Saved. 2 x 2 x Shift Total Weight (kg) 195 195 195 195 195 195 195 195 MEDICATIONS Current Facility-Administered Medications: potassium chloride iv piggyback 20 mEq/100 mL 20 mEq INTRAVENOUS q 2 H enoxaparin 40 mg injection (LOVENOX) 40 mg SUBCUTANEOUS DAILY dextrose 5% in NaCl 0.9% iv infusion 100 mL/hr INTRAVENOUS CONTINUOUS ondansetron 4 mg tab(s) (ZOFRAN) 4 mg ORAL q 6 H PRN Or ondansetron (PF) 4 mg injection (ZOFRAN) 4 mg INTRAVENOUS q 6 H PRN acetaminophen 650 mg tab(s) (TYLENOL) 650 mg ORAL q 6 H morphine 2 mg injection 2 mg INTRAVENOUS q 4 H PRN oxyCODONE IR 5-10 mg tab(s) (ROXICODONE) 5-10 mg ORAL q 6 H PRN Labs: Recent Labs 06/17/18 0335 06/16/18 1012 06/16/18 0540 NA 142 -- 139 K 3.4* -- 3.7 CHLOR 111* -- 109* CO2 23 -- 23 BUN 10 -- 9 CREAT 0.65 -- 0.64 GLUC 99 -- 90 ANION 11 -- 11 CA 8.0* -- 8.7 ALB 2.6* 2.7* -- AST 22 42* -- ALT 34 48 -- ALKPHOS 114 135* -- TBILI 0.3 0.3 -- WBC 6.76 -- 8.08 HB 10.4* -- 11.8 HCT 32.8* -- 37.5 PLT 233 -- 262 INR -- -- 1.04 Exam: GENERAL: No distress, Alert, Morbid obesity NEURO: AANDOx3, CN II-XII grossly intact HEENT: normocephalic, atraumatic LUNGS: Unlabored breathing CARDIAC: Regular rate and rhythm as above ABDOMEN: Soft, non-tender, non-distended EXTREMITIES: QUARLES, No deformities, No edema SKIN: Skin color, texture, turgor normal, No rashes or lesions ASSESSMENT AND PLAN: Active Hospital Problems Diagnosis Date Noted - Cholecystitis, acute 06/16/2018 38 year old female with cholelithiasis - HIDA negative with normal EF of 47% - diet as tolerated - dispo planning - outpatient bariatric surgical follow up SIGNATURE: Sergio Phan MD PATIENT NAME: Shital Salcedo DATE: June 17, 2018 TIME: 6:25 AM Pager: Emergency General Surgery Service Pager: For questions or concerns Mon-Fri 6a-5p, please page [phone]. After 5pm and on Weekends and Holidays, please page [phone] if in ICU or [phone] if on RNF. Attending Note I evaluated the patient and personally participated in the tse components. I agree with the resident's findings and plan as documented and have discussed the case and management of the patient's care with the resident. Signature: Danielle Amaro MD Date: 06/17/2018 Time: 11:36 AM MDRD GFR Collected: 06/17/2018 Status: F Source: [facility] 3:35 AM HEALTH SYSTEM REPOSITORY TYPE CODE TESTS RESULT OUT OF RANGE REFERENCE UNITS LAB GFRFN(LOINC >60mL/min/1.73m ) 2 eGFR >60 Result Comment: If the patient is , multiply the result by 1.210. Performed By: #### GFR #### [place] [address] HEMOGRAM Collected: 06/17/2018 Status: F Source: [facility] 3:35 AM HEALTH SYSTEM REPOSITORY TYPE CODE TESTS RESULT OUT OF REFERENCE UNITS RANGE LAB WBC(LOINC) 3.98-10.04 thou/cmm WBC 6.76 LAB RBC(LOINC) 3.93-5.22 mil/cmm Low RBC 3.66 LAB HGB(LOINC) 11.2-15.7 g/dL Low Hgb 10.4 LAB HCT(LOINC) 34.1-44.9 % Low Hct 32.8 LAB MCV(LOINC) 79.4-94.8 fl MCV 89.6 LAB MCH(LOINC) 25.6-32.2 pg MCH 28.4 LAB MCHC(LOINC) 31.6-34.8 % MCHC 31.7 LAB RDW(LOINC) 11.7-14.4 % High RDW 14.7 LAB RDWSD(LOINC 36.4-46.3 fl ) High RDW SD 47.9 LAB PLT(LOINC) 182-369 thou/cmm Platelet 233 LAB MPV(LOINC) 9.4-12.3 fl MPV 10.5 Performed By: #### CBC1 #### [place] [address] BASIC PANEL Collected: 06/17/2018 Status: F Source: [facility] 3:35 AM HEALTH SYSTEM REPOSITORY TYPE CODE TESTS RESULT OUT OF REFERENCE UNITS RANGE LAB NA(LOINC) 136-145 mEq/L Sodium Blood 142 LAB K(LOINC) 3.5-5.1 mEq/L Low Potassium Blood 3.4 LAB CL(LOINC) 98-107 mEq/L Chloride High Blood 111 LAB CO2(LOINC) 21-32 mEq/L CO2 Blood 23 LAB GLU(LOINC) 70-99 mg/dL Glucose Blood 99 LAB BUN(LOINC) 7-18 mg/dL BUN Blood 10 LAB CREA(LOINC 0.51-0.95 mg/dL ) Creatinine Blood 0.65 LAB CA(LOINC) 8.5-10.1 mg/dL Low Calcium Blood 8.0 LAB ANGAP(LOIN 8-16 C) Anion Gap 11 Performed By: #### P8 #### [place] [address] HEPATIC PANEL Collected: 06/17/2018 Status: F Source: [facility] 3:35 AM HEALTH SYSTEM REPOSITORY TYPE CODE TESTS RESULT OUT OF REFERENCE UNITS RANGE LAB ALB(LOINC) 3.4-5.0 g/dL Low Albumin Blood 2.6 LAB ALT(LOINC) 12-78 U/L ALT-SGPT Blood 34 LAB ALKP(LOINC 46-116 U/L ) Alk Phosphatase 114 LAB TP(LOINC) 6.4-8.2 g/dL Low Total Protein 6.3 LAB AST(LOINC) 9-37 U/L AST-SGOT Blood 22 LAB BILIT(LOIN 0.2-1.0 mg/dL C) Total Bilirubin 0.3 LAB DBIL(LOINC 0.00-0.20 mg/dL ) Direct Bilirubin 0.09 Performed By: #### HEPAP #### [facility] [address] [place] [id number] PROGRESS Observed: 06/17/2018 Status: COMPLETED Source: [place] 3:15 AM [facility] OTHER CAMPUS REPOSITORY HNO ID: [id number] Author: Downtime Note Service: (none) Author Type: (none) Type: Progress Notes Filed: 06/17/2018 3:22 AM Note Text: Epic Scheduled Downtime: 06/17/2018 1:00:00 AM to 06/17/2018 3:07:00 AM PROGRESS Observed: 06/16/2018 Status: COMPLETED Source: [place] 4:29 PM [facility] [place] REPOSITORY HNO ID: [id number] Author: Justine Lombardo (Rt) Service: Radiology Author Type: Manual Winder Type: Progress Notes Filed: 06/16/2018 4:30 PM Note Text: RADIOLOGY SERVICE PROGRESS NOTE SERVICE DATE: 06/16/2018 SERVICE TIME: 4:29 PM PATIENT IDENTITY VERIFICATION COMPLETED USING TWO (2) METHODS: Patient confirmed name and Date of verbally. PATIENT GENDER DATA: .female : No ALLERGIES: Reviewed and unchanged MEDICATIONS REVIEWED: Yes PATIENT RELEVANT IMPLANT DATA REVIEWED: Not Applicable CREATININE: Creatinine Date Value Ref Range Status 06/16/2018 0.64 0.51 - 0.95 mg/dL Final 01/16/2015 0.72 0.70 - 1.40 mg/dL Final 10/10/2012 0.79 0.70 - 1.40 mg/dL Final eGFR-All Other Races Date Value Ref Range Status 01/16/2015 >60 . Final Comment: eGFR (Estimated GFR) Units of measure: mL/min/1.73 meters squared eGFR is derived from the reexpressed MDRD Study equation using the following parameters: serum creatinine, age, gender and race. The creatinine assay has been calibrated to be traceable to IDMS. An eGFR <60 mL/min/1.73m2 for >3 months is consistent with chronic kidney disease. Refer to KDOQI guidelines for clinical interpretation. In patients with unstable renal function, e.g. those with acute kidney injury, the eGFR may not accurately reflect actual GFR. eGFR- Date Value Ref Range Status 01/16/2015 >60 Final P.O.C.T. RESULTS: N/A June 16, [address] PERFORMED: No IV SITE: Inpatient - refer to [facility] documentation POST EXAM PIV STATUS: Left in for next appointment PROCEDURE TYPE: NM INJECT: hida with cck. 5 mCi Tc99m CHOLETEC. 8 oz ensure plus. ADMINISTRATION TIME: 15 PATIENT DISCHARGED TO: Patient taken to IP transport area for return to RNF/ICU/ED. A Diagnostic radioactive procedure has taken place, with no further precautions necessary other than routine body substance precautions. More information regarding radiation safety can be found using this link: [email or web address] SIGNATURE: RT Munira PATIENT NAME: Shital Salcedo DATE: June 16, 2018 TIME: 4:29 PM PAGER/CONTACT #: HEPATOBILIARY SCAN WITH Observed: 06/16/2018 Status: F Source: [facility] 4:27 PM HEALTH SYSTEM REPOSITORY Performed at [facility] APPROVED BY: MARIBETH SALMERON MD HEPATOBILIARY SCAN WITH POST FATTY MEAL GALLBLADDER EJECTION FRACTION: HISTORY: Abdominal pain. TECHNIQUE: 5.0 mCi Tc-99m Choletec IV, followed by dynamic imaging of the abdomen for 60 minutes. The patient ingested a fatty meal consisting of 8 ounces of Ensure Plus, followed by additional imaging. RESULT: There is prompt uptake and clearance of activity by the liver, which is normal in configuration. Major intra- and extrahepatic biliary ducts are visualized. Gallbladder activity is visualized by 16 minutes post injection, indicating cystic duct patency. Proximal small bowel activity is noted by 36 minutes post injection, indicating biliary patency. After ingestion of the fatty meal, the calculated gallbladder ejection fraction was 47% (normal range, >35%). These findings represent a normal gallbladder response, without definite evidence for chronic cholecystitis. IMPRESSION: NO DEFINITE SCINTIGRAPHIC EVIDENCE FOR ACUTE OR CHRONIC CHOLECYSTITIS. HEPATIC PANEL Collected: 06/16/2018 Status: F Source: [facility] 10:12 AM HEALTH SYSTEM REPOSITORY TYPE CODE TESTS RESULT OUT OF REFERENCE UNITS RANGE LAB ALB(LOINC) 3.4-5.0 g/dL Low Albumin Blood 2.7 LAB ALT(LOINC) 12-78 U/L ALT-SGPT Blood 48 LAB ALKP(LOINC 46-116 U/L ) Alk High Phosphatase 135 LAB TP(LOINC) 6.4-8.2 g/dL Total Protein 6.6 LAB AST(LOINC) 9-37 U/L AST-SGOT High Blood 42 LAB BILIT(LOIN 0.2-1.0 mg/dL C) Total Bilirubin 0.3 LAB DBIL(LOINC 0.00-0.20 mg/dL ) Direct Bilirubin 0.10 Performed By: #### HEPAP #### [place] [address] PROGRESS Observed: 06/16/2018 Status: COMPLETED Source: [place] 9:56 AM CLINIC OTHER CAMPUS REPOSITORY HNO ID: [id number] Author: Danielle Amaro Service: Trauma Author Type: Physician Type: Progress Notes Filed: 06/18/2018 11:37 AM Note Text: EGS Surgery Progress Note SERVICE DATE: 06/16/2018 SUBJECTIVE: Pt monitored overnight without any actute events documented. Pt reports her pain is much better than when she came in. Denies fevers/chills. Denies further complaints. Tolerating diet DIET NPO Nausea No Emesis No Flatus Yes Bowel movement No Pain Controlled Yes Ambulating Yes OBJECTIVE: Vitals: Temp (24hrs), Av.8 ?C (98.2 ?F), Min:36.8 ?C (98.2 ?F), Max:36.8 ?C (98.2 ?F) BP 95/75 Pulse 64 Temp 36.8 ?C (98.2 ?F) (Temporal Artery) Resp 18 Ht 162.6 cm (5' 4) Wt (!) 195 kg (429 lb 14.4 oz) SpO2 100% BMI 73.79 kg/m? O2 Therapy: Room Air IANDO: MEDICATIONS Current Facility-Administered Medications: dextrose 5% in NaCl 0.9% iv infusion 100 mL/hr INTRAVENOUS CONTINUOUS ondansetron 4 mg tab(s) (ZOFRAN) 4 mg ORAL q 6 H PRN Or ondansetron (PF) 4 mg injection (ZOFRAN) 4 mg INTRAVENOUS q 6 H PRN acetaminophen 650 mg tab(s) (TYLENOL) 650 mg ORAL q 6 H morphine 2 mg injection 2 mg INTRAVENOUS q 4 H PRN oxyCODONE IR 5-10 mg tab(s) (ROXICODONE) 5-10 mg ORAL q 6 H PRN ketorolac 15 mg injection (TORADOL) 15 mg INTRAVENOUS ONCE Labs: Recent Labs 06/16/18 0540 NA 139 K 3.7 CHLOR 109* CO2 23 BUN 9 CREAT 0.64 GLUC 90 ANION 11 CA 8.7 WBC 8.08 HB 11.8 HCT 37.5 PLT 262 INR 1.04 Exam: GENERAL: No distress, Alert NEURO: AANDOx3, CN II-XII grossly intact HEENT: normocephalic, atraumatic LUNGS: Unlabored breathing CARDIAC: Regular rate and rhythm as above ABDOMEN: Soft, non-tender, non-distended, no jaundice EXTREMITIES: QUARLES, No deformities, No edema SKIN: Skin color, texture, turgor normal, No rashes or lesions ASSESSMENT AND PLAN: Active Hospital Problems Diagnosis Date Noted - Cholecystitis, acute 06/16/2018 38 year old female with cholelithiasis ? - abd tenderness improved from yesterday - admission - HIDA planned for today (06/16) - NPO/IVF - Labs - LFTs pending - No abx necessary at this time - DVT ppx - lovenox - pain control SIGNATURE: Rico Roa MD PATIENT NAME: Shital Salcedo DATE: June 16, 2018 TIME: 9:56 AM Pager: [phone] Attending Note I evaluated the patient and personally participated in the tse components. I agree with the resident's findings and plan as documented and have discussed the case and management of the patient's care with the resident. Signature: Danielle Amaro MD Date: 06/16/2018 Time: 11:37 AM HEMOGRAM Collected: 06/16/2018 Status: F Source: [facility] 5:40 AM HEALTH SYSTEM REPOSITORY TYPE CODE TESTS RESULT OUT OF REFERENCE UNITS RANGE LAB WBC(LOINC) 3.98-10.04 thou/cmm WBC 8.08 LAB RBC(LOINC) 3.93-5.22 mil/cmm RBC 4.21 LAB HGB(LOINC) 11.2-15.7 g/dL Hgb 11.8 LAB HCT(LOINC) 34.1-44.9 % Hct 37.5 LAB MCV(LOINC) 79.4-94.8 fl MCV 89.1 LAB MCH(LOINC) 25.6-32.2 pg MCH 28.0 LAB MCHC(LOINC) 31.6-34.8 % Low MCHC 31.5 LAB RDW(LOINC) 11.7-14.4 % High RDW 14.6 LAB RDWSD(LOINC 36.4-46.3 fl ) High RDW SD 47.3 LAB PLT(LOINC) 182-369 thou/cmm Platelet 262 LAB MPV(LOINC) 9.4-12.3 fl MPV 10.1 Performed By: #### CBC1 #### [facility] [address] [place] [address] PROTIME Collected: 06/16/2018 Status: F Source: [facility] 5:40 HEALTH SYSTEM REPOSITORY TYPE CODE TESTS RESULT OUT OF REFERENCE UNITS RANGE LAB PTI(LOINC) 9.7-13.0 sec Prothrombin Time 10.8 LAB INR(LOINC) 0.90-1.30 INR 1.04 Result Comment: Note: Reference Range Change Vitamin K Antagonist (VKA) Therapeutic Range: INR 2 to 3 (Target INR of 2.5) Note: For patients treated with VKA drugs, such as warfarin, the [place] [employer] 2012 Guideline recommends a therapeutic INR range of 2 to 3 (target INR of 2.5). This recommendation includes high-risk patients with antiphospholipid syndrome with previous arterial or venous thromboembolism, current-generation mechanical or bioprosthetic aortic heart valve replacement. VKA Therapeutic Range for some Mechanical Valve Replacement: INR 2.5 to 3.5 (Target INR of 3) Note: Patients with mechanical aortic valve replacement and additional risk factors for thromboembolic events (atrial fibrillation, previous thromboembolism, LV dysfunction, hypercoagulable conditions) or an older generation mechanical AVR (i.e., ball in-Cage) or any mechanical MVR should have a INR therapeutic range of 2.5 to 3.5 target INR of 3). Fransisco GH, et al. Chest 2012; 141:7S-47S Miguel RA et al. [facility] 2017; 70: 252-289 Performed By: #### PT #### [place] [address] BASIC PANEL Collected: 06/16/2018 Status: F Source: [facility] 5:40 AM HEALTH SYSTEM REPOSITORY TYPE CODE TESTS RESULT OUT OF REFERENCE UNITS RANGE LAB NA(LOINC) 136-145 mEq/L Sodium Blood 139 LAB K(LOINC) 3.5-5.1 mEq/L Potassium Blood 3.7 LAB CL(LOINC) 98-107 mEq/L Chloride High Blood 109 LAB CO2(LOINC) 21-32 mEq/L CO2 Blood 23 LAB GLU(LOINC) 70-99 mg/dL Glucose Blood 90 LAB BUN(LOINC) 7-18 mg/dL BUN Blood 9 LAB CREA(LOINC 0.51-0.95 mg/dL ) Creatinine Blood 0.64 LAB CA(LOINC) 8.5-10.1 mg/dL Calcium Blood 8.7 LAB ANGAP(LOIN 8-16 C) Anion Gap 11 Performed By: #### P8 #### [place] [address] TYPE AND SCREEN Collected: 06/16/2018 Status: F Source: [facility] 5:40 AM HEALTH SYSTEM REPOSITORY TYPE CODE TESTS RESULT OUT OF REFERENCE UNITS RANGE LAB ABO(LOINC) O ABO Group LAB FLAT HAMMERER(LOINC ) RH Type Positive LAB ABSCR(LOIN C) Antibody NEGATIVE Screen LAB BBCMT(LOIN C) Comment See Below Result Comment: Screen &/or Xmatch expires in 3 days at 12 midnight. Redraw patient at that time. Performed By: #### T&S #### [place] [address] ED PROV NOTE Observed: 06/16/2018 Status: COMPLETED Source: [place] 5:02 AM [facility] OTHER CAMPUS REPOSITORY HNO ID: [id number] Author: Truong Bennett DO Service: Emergency Medicine Author Type: Physician Type: ED Provider Notes Filed: 06/16/2018 5:04 AM Note Text: Attending Note I evaluated the patient and personally participated in the tse components. I agree with the resident's findings and plan as documented and have discussed the case and management of the patient's care with the resident. 38-year-old female presents from outside emergency Department for surgical consultation for cholecystitis. Patient states that she had abdominal pain earlier today after she was eating food. She states that she had nausea but no vomiting. Her pain is since improved. She had ultrasound done showing possible cholecystitis with gallbladder sludge and possible choledocholithiasis. No fevers or chills. She denies any chest pain or shortness of breath. No changes in bowel habits. No prior abdominal surgeries. On exam, vital signs reviewed. Patient is afebrile and nontoxic appearing. Alert and oriented ?3 answering questions appropriately. Skin is warm and dry with no rash or diaphoresis. No jaundice or scleral icterus. Neck supple no JVD. Trachea midline. Head atraumatic and normocephalic. PERRLA, EOMI. Heart regular rate and rhythm with no murmurs rubs or gallops. Lungs clear bilaterally with no wheezing rales or rhonchi. Abdomen soft with tenderness to palpation in the epigastrium and right upper quadrant. Negative Falcon sign. no palpable masses or peritoneal signs. Bowel sounds present. Distal pulses intact and symmetric in all 4 extremities. No lower extremity edema. No unilateral leg swelling. Cranial nerves II through XII intact. Medical decision-makin-year-old female presenting with abdominal pain after eating food. Outside emergency department ultrasound showed concern for cholecystitis. Patient states that her pain is improved during obtaining history, but she does have epigastric and right upper quadrant pain on palpation. At this time, surgery has been consulted. Awaiting the recommendations. Truong Bennett DO 06/16/18 0504 ED NOTE Observed: 06/16/2018 Status: COMPLETED Source: [place] 5:00 AM [facility] REPOSITORY HNO ID: [id number] Author: Sujey Langley) MIKE Cleaning Service: Nursing Author Type: Registered Nurse Type: ED Notes Filed: 06/16/2018 5:06 AM Note Text: Patient notified of NPO order. Patient verbalized understanding. ED PROV NOTE Observed: 06/16/2018 Status: COMPLETED Source: [place] 4:47 AM [facility] REPOSITORY [facility] ID: [id number] Author: Filomena Fonseca DO Service: Emergency Medicine Author Type: Physician Type: ED Provider Notes Filed: 06/20/2018 4:06 PM Note Text: Attestation signed by Truong Bennett DO at 06/22/2018 11:15 PM Signature: Truong Bennett DO Date: 06/22/2018 Time: 11:15 PM ED Provider Note Patient Name: Shital Salcedo SERVICE DATE: 06/15/18 History Patient presents with: Abdominal Pain: went to [facility] for abd. pain. Ultrasound showed gallstones. Sent here for surgery consult. Pt. is comfortable at this time. 38-year-old female with history of hyperlipidemia and morbid obesity presenting for complaint of right upper quadrant pain. Patient was seen at [facility] after the onset of her pain were an ultrasound identified gallstones in the gallbladder neck, concerning findings for cholecystitis. Sent to this ED for surgical consult. Patient reports prior to onset of symptoms she was eating salami. Right upper quadrant pain accompanied by nausea, cold sweats, and one episode of vomiting, colicky in nature. Denies similar prior episodes, denies prior knowledge of gallstones or episodes of biliary colic. Denies prior abdominal surgery. PAST MEDICAL HISTORY Diagnosis Date - Goiter 10/10/2012 - Hyperlipidemia borderline - Morbid obesity (HCC) PAST SURGICAL HISTORY Procedure Laterality Date - HYSTEROSCOPY [address] Yeager for infertility FAMILY HISTORY Problem Relation Age of Onset - Diabetes Sister - Hypertension Maternal Aunt - Diabetes Maternal Grandmother - Diabetes Maternal Aunt - Cancer Maternal Aunt - Heart Paternal Grandmother ? - Allergies Sister Social History Social History Main Topics - Smoking status: Never Smoker - Smokeless tobacco: Never Used - Alcohol use No - Drug use: No - Sexual activity: Yes Partners: Male control/ protection: None ALLERGIES No Known Allergies Review of Systems Constitutional: Negative for chills, fatigue and fever. HENT: Negative for congestion, rhinorrhea, sinus pressure and sore throat. Eyes: Negative for photophobia and visual disturbance. Respiratory: Negative for cough, chest tightness, shortness of breath and wheezing. Cardiovascular: Negative for chest pain, palpitations and leg swelling. Gastrointestinal: Positive for abdominal pain (RUQ), nausea and vomiting. Negative for abdominal distention, constipation and diarrhea. Genitourinary: Negative for decreased urine volume, difficulty urinating, dysuria, frequency, hematuria, urgency, vaginal bleeding, vaginal discharge and vaginal pain. Musculoskeletal: Negative for arthralgias, back pain, myalgias and neck pain. Skin: Negative for color change and rash. Neurological: Negative for dizziness, weakness, light-headedness and headaches. Psychiatric/Behavioral: Negative for agitation and confusion. Physical Exam BP 100/59 Pulse 57 Temp 98.2 Resp 18 Ht 5' 4 (1.63m) Wt 420 lb (190.5kg) SpO2 98% BMI 72.06 kg/(m2). Physical Exam Constitutional: She is oriented to person, place, and time. She appears well-developed and well-nourished. No distress. Morbidly obese -[place] female, lying in hospital bed in no acute distress. Pleasant in conversation and appropriate. Alert, afebrile, stable vital signs. HENT: Head: Normocephalic and atraumatic. Right Ear: External ear normal. Left Ear: External ear normal. Nose: Nose normal. Mouth/Throat: Oropharynx is clear and moist. No oropharyngeal exudate. Eyes: Pupils are equal, round, and reactive to light. Conjunctivae and EOM are normal. Right eye exhibits no discharge. Left eye exhibits no discharge. Neck: Normal range of motion. Neck supple. Cardiovascular: Normal rate, regular rhythm, normal heart sounds and intact distal pulses. No murmur heard. Pulses: Radial pulses are 2+ on the right side, and 2+ on the left side. Dorsalis pedis pulses are 2+ on the right side, and 2+ on the left side. Pulmonary/Chest: Effort normal and breath sounds normal. No respiratory distress. She has no wheezes. She has no rales. She exhibits no tenderness. Abdominal: Soft. Bowel sounds are normal. She exhibits no distension. There is no hepatosplenomegaly. There is tenderness in the right upper quadrant and epigastric area. There is guarding and positive Falcon's sign. There is no rigidity, no rebound and no CVA tenderness. No hernia. Abdominal exam is initially difficult secondary to body habitus, patient does have a positive Falcon sign, and mild guarding with epigastric palpation. Musculoskeletal: Normal range of motion. She exhibits no edema or tenderness. Lymphadenopathy: She has no cervical adenopathy. Neurological: She is alert and oriented to person, place, and time. She has normal strength. No cranial nerve deficit or sensory deficit. Gait normal. Skin: Skin is warm and dry. She is not diaphoretic. No erythema. Psychiatric: She has a normal mood and affect. Her behavior is normal. Thought content normal. Nursing note and vitals reviewed. Diagnostic Testing Results for orders placed or performed during the hospital encounter of 06/15/18 NM HEPATOBILIARY W EF AND/OR RX Result Value Ref Range [employer]er HEPATOBILIARY SCAN WITH POST FATTY MEAL GALLBLADDER EJECTION FRACTION: HISTORY: Abdominal pain. TECHNIQUE: 5.0 mCi Tc-99m Choletec IV, followed by dynamic imaging of the abdomen for 60 minutes. The patient ingested a fatty meal consisting of 8 ounces of Ensure Plus, followed by additional imaging. RESULT: There is prompt uptake and clearance of activity by the liver, which is normal in configuration. Major intra- and extrahepatic biliary ducts are visualized. Gallbladder activity is visualized by 16 minutes post injection, indicating cystic duct patency. Proximal small bowel activity is noted by 36 minutes post injection, indicating biliary patency. After ingestion of the fatty meal, the calculated gallbladder ejection fraction was 47% (normal range, >35%). These findings represent a normal gallbladder response, without definite evidence for chronic cholecystitis. IMPRESSION: NO DEFINITE SCINTIGRAPHIC EVIDENCE F OR ACUTE OR CHRONIC CHOLECYSTITIS. CBC + PLT (AK,AV,EU,FV,HL,KRISTINA,MM,SP) Result Value Ref Range WBC 8.08 3.98 - 10.04 thou/cmm RBC 4.21 3.93 - 5.22 mil/cmm HGB 11.8 11.2 - 15.7 g/dL Hematocrit 37.5 34.1 - 44.9 % MCV 89.1 79.4 - 94.8 fl MCH 28.0 25.6 - 32.2 pg MCHC 31.5 (L) 31.6 - 34.8 % RDW 14.6 (H) 11.7 - 14.4 % RDW-SD 47.3 (H) 36.4 - 46.3 fl Platelet Count 262 182 - 369 thou/cmm MPV 10.1 9.4 - 12.3 fl BASIC METABOLIC PANEL (AK,AV,EU,FV,HL,KRISTINA,MM,SP) Result Value Ref Range Sodium 139 136 - 145 mEq/L Potassium 3.7 3.5 - 5.1 mEq/L Chloride 109 (H) 98 - 107 mEq/L CO2 23 21 - 32 mEq/L Glucose 90 70 - 99 mg/dL BUN 9 7 - 18 mg/dL Creatinine 0.64 0.51 - 0.95 mg/dL Calcium 8.7 8.5 - 10.1 mg/dL Anion Gap 11 8 - 16 PROTHROMBIN TIME / PT (AK,AV,EU,FV,HL,KRISTINA,MM,SP) Result Value Ref Range Prothrombin Time 10.8 9.7 - 13.0 sec INR 1.04 0.90 - 1.30 MDRD GFR Result Value Ref Range eGFR >60 >60mL/min/1.73m2 HEPATIC FUNCTION PANEL (AK,AV,EU,FV,HL,KRISTINA,MM,SP) Result Value Ref Range Albumin 2.7 (L) 3.4 - 5.0 g/dL ALT 48 12 - 78 U/L Alkaline Phosphatase 135 (H) 46 - 116 U/L Protein, Total 6.6 6.4 - 8.2 g/dL AST 42 (H) 9 - 37 U/L Bilirubin, Total 0.3 0.2 - 1.0 mg/dL Direct Bilirubin 0.10 0.00 - 0.20 mg/dL CBC + PLT (AK,AV,EU,FV,HL,KRISTINA,MM,SP) Result Value Ref Range WBC 6.76 3.98 - 10.04 thou/cmm RBC 3.66 (L) 3.93 - 5.22 mil/cmm HGB 10.4 (L) 11.2 - 15.7 g/dL Hematocrit 32.8 (L) 34.1 - 44.9 % MCV 89.6 79.4 - 94.8 fl MCH 28.4 25.6 - 32.2 pg MCHC 31.7 31.6 - 34.8 % RDW 14.7 (H) 11.7 - 14.4 % RDW-SD 47.9 (H) 36.4 - 46.3 fl Platelet Count 233 182 - 369 thou/cmm MPV 10.5 9.4 - 12.3 fl BASIC METABOLIC PANEL (AK,AV,EU,FV,HL,KRISTINA,MM,SP) Result Value Ref Range Sodium 142 136 - 145 mEq/L Potassium 3.4 (L) 3.5 - 5.1 mEq/L Chloride 111 (H) 98 - 107 mEq/L CO2 23 21 - 32 mEq/L Glucose 99 70 - 99 mg/dL BUN 10 7 - 18 mg/dL Creatinine 0.65 0.51 - 0.95 mg/dL Calcium 8.0 (L) 8.5 - 10.1 mg/dL Anion Gap 11 8 - 16 HEPATIC FUNCTION PANEL (AK,AV,EU,FV,HL,KRISTINA,MM,SP) Result Value Ref Range Albumin 2.6 (L) 3.4 - 5.0 g/dL ALT 34 12 - 78 U/L Alkaline Phosphatase 114 46 - 116 U/L Protein, Total 6.3 (L) 6.4 - 8.2 g/dL AST 22 9 - 37 U/L Bilirubin, Total 0.3 0.2 - 1.0 mg/dL Direct Bilirubin 0.09 0.00 - 0.20 mg/dL MDRD GFR Result Value Ref Range eGFR >60 >60mL/min/1.73m2 TYPE + SCREEN (AK,AV,EU,FV,HL,KRISTINA,MM,SP) Result Value Ref Range ABO Group O RH Type Positive Antibody Screen NEGATIVE Blood Bank Comment See Below Labs drawn at outside hospital reveal no leukocytosis, mild elevation of alkaline phosphatase but otherwise normal ALT and AST and total bilirubin. Lipase within normal limits. Ultrasound reveals cholelithiasis with a stone within the gallbladder neck?no comment is made whether this stone is mobile, no pericholecystic fluid, no indication of wall thickening, however the common biliary duct is borderline enlarged at 7 mm. Procedures ED Course / Clinical Impression Clinical Impressions as of Jun 20 1557 Cholecystitis MDM / Disposition / Plan 38-year-old female sent from [facility] for surgical consult secondary to concern for cholecystitis noted on ultrasound. On arrival patient is afebrile, with stable vital signs, in no acute distress. Physical exam is detailed above. Outside records reveal no leukocytosis no elevation in AST her ALT, mild elevation of alkaline phosphatase, normal total bilirubin. Normal lipase. Ultrasound with cholelithiasis with stone with the gallbladder neck and borderline enlarged common bile duct at 7 mm. Patient did not require symptom management for pain or nausea while in the department. Surgical consult placed and surgery has assessed the patient. We'll admit for a HIDA scan and further assessment of the patient's potential cholecystitis. Patient agreement with this plan, transferred to the floor in stable condition. SIGNATURE: Filomena Fonseca, DO Filomena Fonseca, DO 06/20/18 1606 Truong Bennett, DO 06/22/18 9766 ED NOTE Observed: 06/16/2018 Status: COMPLETED Source: [place] 4:40 AM [facility] REPOSITORY HNO ID: [id number] Author: Sujey Cleaning RN Service: Nursing Author Type: Registered Nurse Type: ED Notes Filed: 06/16/2018 4:40 AM Note Text: Dr Bennett at bedside assessing patient. ED NOTE Observed: 06/16/2018 Status: COMPLETED Source: [place] 4:19 AM [facility] REPOSITORY HNO ID: [id number] Author: Sujey Langley) MIKE Cleaning Service: Nursing Author Type: Registered Nurse Type: ED Notes Filed: 06/16/2018 4:19 AM Note Text: Surgery resident at bedside assessing patient. HISTORY PHYSICAL Observed: 06/16/2018 Status: COMPLETED Source: [place] 4:09 AM [facility] REPOSITORY HNO ID: [id number] Author: Dora Lyon Service: General Surgery Author Type: Resident Type: HANDP Filed: 06/16/2018 4:39 AM Note Text: Attestation signed by Bobbi Nicholas at 06/16/2018 6:41 AM Due to continued pain on exam per resident and question of stone lodged in neck of GB on u/s will observe and check HIDA I reviewed the resident's note and agree. Bobbi Nicholas MD, FACS, [facility] HANDP: EMERGENCY GENERAL SURGERY SERVICE Emergency General Surgery Service Pager: For questions or concerns Mon-Fri 6a-5p please page [phone]. After 5pm and on Weekends and Holidays, please page [phone] if in ICU or [phone] if on RNF. SERVICE DATE: 06/16/2018 SERVICE TIME: 4:09 AM REASON FOR CONSULT: cholecystitis REQUESTING PHYSICIAN: Dr Fonseca PRIMARY CARE PHYSICIAN: Shayna Quigley MD Subjective Ms. Salcedo is a 38 year old female with epigastric abd pain with diaphoresis beginning yesterday around 3pm after eating sausage and cheese. She has associated nausea without emesis. Hasn't passed a BM. She reports she's otherwise healthy and has never had surgery before. She was seen at ED in [place] and worked up as below. RUQ US - normal distended gallbladder, sludge, 2.5cm stone, no perichole fluid, CBD 5mm WBC 7.8, hgb 11.8, plt 273 T bili 0.4, AST 50, ALT 25, AP 123, lipase 53 PAST MEDICAL HISTORY Diagnosis Date - Goiter 10/10/2012 - Hyperlipidemia borderline - Morbid obesity (HCC) PAST SURGICAL HISTORY Procedure Laterality Date - HYSTEROSCOPY [address] Yeager for infertility FAMILY HISTORY Problem Relation Age of Onset - Diabetes Sister - Hypertension Maternal Aunt - Diabetes Maternal Grandmother - Diabetes Maternal Aunt - Cancer Maternal Aunt - Heart Paternal Grandmother ? - Allergies Sister Social History Substance Use Topics - Smoking status: Never Smoker - Smokeless tobacco: Never Used - Alcohol use No (Not in a hospital admission) No current hospital medications on file. Allergies As of Date: 06/15/2018 (No Known Allergies) Fully Assessed 06/15/2018 COMPLETE REVIEW OF SYSTEMS: See HPI Objective PHYSICAL EXAM: Physical Exam Performed: GENERAL: Alert, no distress, cooperative SKIN: Skin color, texture, turgor normal. No rashes or lesions. LUNGS: no resp distress ABDOMEN: Soft, obese, TTP in epigastrium, voluntary guarding, - Falcon's EXTREMITIES: Extremities normal, no deformities, edema, clubbing or skin discoloration. Good capillary refill. NEURO: Grossly normal cognition, motor function, and cranial nerves III-XII BP 99/58 Pulse 54 Temp 98.2 Resp 16 Ht 5' 4 (1.63m) Wt 420 lb (190.5kg) SpO2 99% BMI 72.06 kg/(m2). DATA: Diagnostic tests reviewed for today's visit: Most recent labs and imaging results. No orders to display Impression/Recommendations 38 year old female with cholelithiasis - persistent tenderness on examination - admission - HIDA pending - NPO/IVF - pain control Discussed above plan with attending, Dr Nicholas SIGNATURE: Dora Lyon MD PATIENT NAME: Shital Salcedo DATE: June 16, 2018 TIME: 4:09 AM PAGER: see below Emergency General Surgery Service Pager: For questions or concerns Mon-Fri 6a-5p please page [phone]. After 5pm and on Weekends and Holidays, please page [phone] if in ICU or [phone] if on RNF. ED NOTE Observed: 06/16/2018 Status: COMPLETED Source: [place] 3:07 AM CL[facility] OTHER CAMP[facility] REPOSITORY O ID: [id number] Author: Teresa SloanRn) MIKE Li Service: (none) Author Type: Registered Nurse Type: ED Notes Filed: 06/16/2018 3:07 AM Note Text: Bed: 13-ED Expected date: Expected time: Means of arrival: Comments: ED TRIAGE NOTE Observed: 06/15/2018 Status: COMPLETED Source: [place] 11:44 PM [facility] OTHER [facility] REPOSITORY HNO ID: [id number] Author: MELI Subramanian (Pa) Service: Emergency Medicine Author Type: Physician Charge Authorizer Type: ED Triage Notes Filed: 06/15/2018 11:45 PM Note Text: ED INTAKE NOTE Patient Name: Shital Salcedo Service Date: 06/15/18 BRIEF HPI: 38y F c/o RUQ pain. Seen at [place], CT showed gallstones, sent here for surgical consult. BRIEF EXAM: Awake and Alert RRR CTAB INTAKE WORKUP: defer SIGNATURE: Helene Fan PA-C EMERGENCY DEPARTMENT Observed: 06/15/2018 Status: F Source: [place] SUMMARY 8:01 PM [facility] REPOSITORY [facility] Medical Records Department [address] [place] [address] Emergency Department Summary 06/15/18 1736 MR#: [id number] Acct: [id number] Name: RICKY SALCEDO Rep #: [id number] : 1980 38 From: Violet Álvarez MD PCP: Shayna Quigley MD Status: REG ER - ER Visit Summary Date of Service: 06/15/18 Chief Complaint: Abdominal pain History of Present Illness: The patient is a 38 F presenting with abdominal pain. She states this started just after eating salami and cheese balls. She began having severe epigastric discomfort. She had nausea associated with this. She had no vomiting. She states the symptoms are starting to resolve. She has no known medical problems. Denies other complaints. Physical Examination: Vitals are stable. Patient is afebrile. Alert no acute distress. HEENT exam is unremarkable. Neck is supple. Lungs are clear and equal bilaterally. Heart is regular rate and rhythm. Abdomen is soft mild epigastric tenderness with no rebound or guarding. Extremities are unremarkable. Skin is warm and dry. Remainder of exam is unremarkable. Emergency Department Course and Treatment: EKG is sinus rate of 69 with no acute ischemic changes. CBC, chemistries unremarkable. Alk phos 123, AST 50, lipase is 53. Troponin is negative. Gallbladder ultrasound shows gallstone and possible cholecystitis and possible choledocholithiasis. Recommend follow-up HIDA scan and/or MRCP. Patient started to have pain again and was given morphine, Zofran. She was given Zosyn IV. Discussed with Dr. Silver. She recommends transfer to a tertiary care center. Discussed with [facility] for transfer. Disposition: Transfer [facility] Impression: Gallstones, abdominal pain This note was generated with Quackenworth dictation software. It may contain incorrect words, spelling, and punctuation that were not noted in review of the chart prior to signing ED Disposition - Plan for ED Patient: Chief Complaint: Abd Pain Referrals: Shayna Quigley MD [Primary Care Provider] - What to do if you have Problems For any increased pain, shortness of breath, bleeding, nausea or vomiting, chest pain, or any unexpected problems, contact your Primary Care Provider. Call [facility] ([phone]) or report to the closest Emergency Room. Call 911 if necessary. 06/15/182000 <Electronically signed by Violet Álvarez MD> Date Violet Álvarez MD Cosigner Signature (If Indicated): Date CC: Shayna Quigley MD CBC W/DIFF, AUTOMATED Collected: 06/15/2018 Status: F Source: [place] 5:25 PM [facility] REPOSITORY TYPE CODE TESTS RESULT OUT OF RANGE REFERENCE UNITS LAB L100.1000 4.4-11.0 K/mm3 Normal WBC 7.8 LAB L100.1200 4.2-5.4 M/mm3 Low RBC 4.16 LAB L100.1300 12.0-15.0 g/dl Low HGB 11.8 LAB L100.1400 37-47 % Normal HCT 37.1 LAB L100.1500 81-99 fL Normal MCV 89.2 LAB L100.1600 27.0-32.0 pg Normal MCH 28.4 LAB L100.1700 32-36 g/gl Low MCHC 31.8 LAB L100.1810 11.6-14.6 % High RDW CV 15.1 LAB L100.1820 35.1-43.9 fl High RDW SD 48.0 LAB L100.1900 150-450 K/mm3 Normal PLT 273 LAB L100.2000 6.2-12.0 fl Normal MPV 10.7 LAB L100.2100 47-70 % Normal NEUT% 66.4 LAB L100.2200 19-41 % Normal LY% 25.6 LAB L100.2300 0-10 % Normal MONO% 6.6 LAB L100.2400 0-5 % Normal EO% 1.0 LAB L100.2500 0-1 % Normal BASO% 0.3 LAB L100.2550 0.0-0.9 % Normal IM GRAN % 0.100 Result Comment: IG% - Immature Granulocytes (promyelocytes, myelocytes and metamyelocytes) > 1% indicates that a LEFT SHIFT is Present. LAB L100.2620 2.0-7.7 X10 3/uL Normal Absolute Neut 5.2 LAB L100.2720 0.83-4.51 X10 3/ul Normal Absolute Lymph 1.99 Performed By: #### L100.0100 #### [facility] [address] [place], [place], [address] BASIC METABOLIC Collected: 06/15/2018 Status: F Source: [place] PROFILE (BMP) 5:25 PM [facility] REPOSITORY TYPE CODE TESTS RESULT OUT OF RANGE REFERENCE UNITS LAB L501.0100 74-106 mg/dL Normal GLU 103 Result Comment: Fasting Glucose result from 100 to 125 mg/dL suggests IMPAIRED HOMEOSTASIS per A.D.A. criteria. Please note revised GLUCOSE reference range effective 2017. LAB L501.1000 7-18 mg/dL Normal BUN 11 LAB L501.1100 0.55-1.02 mg/dL Normal CREAT,SERUM 0.68 Result Comment: The validity of the calculated GFR AND GFRAA in patients over 70 years has not been determined. Clinical correlation is essential. LAB L501.1110 >60 mL/min Normal EST GFR 103 Result Comment: Non- GFR Calc LAB L501.1115 >60 mL/min Normal EST GFR - AA 125 Result Comment: GFR Calc LAB L501.1255 ml/min Normal Estimated CRCL 97.81 LAB L501.1300 10-20 RATIO Normal BUN/CRE 16.2 LAB L501.2200 8.5-10 mg/dL Low .1 CA 8.2 LAB L501.5300 136-14 mmol/L Normal 5 NA 140 LAB L501.5600 3.5-5. mmol/L Normal 1 K 5.0 Result Comment: Moderate Hemolysis, Result may be falsely increased. LAB L501.5900 98-107 mmol/L Normal CL 107 LAB L501.6100 21.0-32.0 mmol/L Normal CO2 27.0 LAB L501.6200 5-15 Normal 6 GAP Performed By: #### L500.2500, L500.3400, L501.2450, L501.4010 #### [facility] [address] [place], [place], [id number] LIVER PROFILE Collected: 06/15/2018 Status: F Source: [place] 5:25 PM [facility] REPOSITORY TYPE CODE TESTS RESULT OUT OF RANGE REFERENCE UNITS LAB L501.1500 6.4-8.2 g/dL Normal T PROT 7.4 LAB L501.1800 3.2-5.0 g/dL Low ALB 3.0 LAB L501.1950 2.2-4.2 g/dL High GLOB 4.4 LAB L501.4100 15-37 U/L High AST 50 Result Comment: Moderate Hemolysis, Result may be falsely increased. LAB L501.4305 45-117 U/L High ALK P 123 LAB L501.4405 13-56 U/L Normal ALT 25 LAB L501.4600 0.20-1.00 mg/dL Normal T BILI 0.40 LAB L501.4700 0.00-0.30 mg/dL Normal D BILI 0.05 Performed By: #### L500.2500, L500.3400, L501.2450, L501.4010 #### [facility] [address] [place], [address] LIPASE Collected: 06/15/2018 Status: F Source: [place] 5:25 PM [facility] REPOSITORY TYPE CODE TESTS RESULT OUT OF REFERENCE UNITS RANGE LAB L501.2450 73-393 U/L Low LIPASE 53 Performed By: #### L500.2500, L500.3400, L501.2450, L501.4010 #### [facility] [address] [place], [address] TROPONIN-I Collected: 06/15/2018 Status: F Source: [place] 5:25 PM [facility] REPOSITORY TYPE CODE TESTS RESULT OUT OF RANGE REFERENCE UNITS LAB L501.4010 <0.045 ng/mL Normal < 0.015 TROPONIN-I Result Comment: TROPONIN-I EXPECTED VALUES <0.045 Negative 0.045 - 0.590 Consistent with Cardiac Damage > OR = 0.600 Critical Value Not every elevated troponin is indicative of W[place]. These values should be used with clinical judgement in examining the patient's clinical picture for diagnosis. To establish a diagnosis of W[place] versus myocardial injury, there must be a demonstrated rise and/or fall in the troponin values, in addition to ischemic symptoms, EKG changes, new regional wall motion abnormality, and/or angiographical evidence. PLEASE NOTE: REFERENCE RANGES EDITED 17 Performed By: #### L500.2500, L500.3400, L501.2450, L501.4010 #### [facility] [address] [place], [address] GALLBLADDER Observed: 06/15/2018 Status: F Source: [place] 5:16 PM [facility] REPOSITORY [facility] Imaging Services [address] [place] [address] Gallbladder MR#: [id number] Acct: [id number] Name: RICKY SALCEDO Tawana Rep #: [id number] : 1980 F 38 From: Hernan Urias MD PCP: Shayna Quigley MD Status: REG ER Study: Gallbladder Date of Exam: 06/15/18 Exam# [id number] Ordering Dr: Violet Álvarez MD STUDY: ABDOMINAL ULTRASOUND - RIGHT UPPER QUADRANT REASON FOR VISIT: Female, 38 years old. Upper abdominal pain TECHNIQUE: Ultrasound evaluation of the right upper quadrant was performed with real-time and static payton-scale imaging. TECHNICAL QUALITY: Adequate. COMPARISON: April 22, 2010 FINDINGS: Liver: The liver measures 18 cm. There is normal echogenicity of the liver. The bile ducts are dilated. There is hepatic color flow. The direction of portal flow is hepatopetal. There is no demonstrated mass lesion. Gallbladder: Normal distended gallbladder. The gallbladder wall measures 3 mm. There is a negative sonographic Falcon's sign. There is no pericholecystic fluid. 2.5 cm gallstone in the neck. Gallbladder sludge. Common Bile Duct (C.B.D.): The common bile duct measures 5 mm. Pancreas: Tail not visualized due to bowel gas. Right Kidney: Normal size of the right kidney. The right kidney measures 12.1 cm. Normal renal cortex. The right cortex measures 2 cm. There is no demonstrated renal mass or cyst. There is no right hydronephrosis. US/Gallbladder IMPRESSION: Gallstone and possible cholecystitis and possible choledocholithiasis. Recommend follow-up HIDA scan and/or MRCP. Electronically Signed: Hernan Urias MD at 18:35 EST , Service support , CC: Violet Álvarez MD; Shayna Quigley MD [employer] Manager Architect: Signed INTERNAL MEDICINE Observed: 05/01/2018 Status: F Source: [place] OFFICE VISIT 8:[address] [facility] [address] [place] [address] OFFICE VISIT Date of Service: 04/30/18 MR#: [id number] Acct: [id number] Name: RICKY SALCEDO Rep #: [id number] : 1980 Provider: Shayna Quigley MD Age/Sex: 38/F Location: [facility] [place] Status: Signed Intake Vital Signs04/30/18 Height 5 ft 4 in Intake Visit Reasons: 3 MO FU Chief Complaint: Morbid obesity follow-up Is patient in pain?: No Allergies No Known Allergies Allergy (Verified 10/02/17 17:02) Medications albuterol sulfate HFA 90 mcg/actuation aerosol inhaler 2 puff INHALATION Q6H PRN #8 g 09/05/17 [Rx Confirmed 10/02/17] phentermine 3.75 mg-topiramate ER 23 mg capsule,ext.release 24hr mphas 1 cap PO DAILY 14 Days #14 cap 04/30/18 [Rx Confirmed 04/30/18] phentermine 7.5 mg-topiramate ER 46 mg capsule,ext.release 24hr mphase 1 cap PO DAILY #30 cap 04/30/18 [Rx Confirmed 04/30/18] Is last menstrual period known: Yes PFSH Family History Mother Myocardial infarction Hypertension Grandmother Hypertension Social History Smoking Status: Never smoker alcohol intake: never substance use type: does not use what type of physical activity do you participate in: none HPI HPI Chief Complaint: Morbid obesity follow-up Details: RICKY SALCEDO, is a 38yo F who presents to the office today for follow-up. She was in 3 months ago and referred to the [facility] bariatric program however patient states that after review, insurance was not going to provide any coverage. She however has recently started a new program called living will during which she has lost about 50 pounds in a month. In review of her flow sheet, her BMI has come down about 10 points in roughly 10 months. This she has done without any medication at home. She has used phentermine in the past however on discontinuing, regained the weight. ROS Const Constitutional: No weight change, body ache, chills, fatigue, sleep problems, fever(s), change in appetite, snoring, weakness, frequent falls, headache(s) or excessive sweating Eyes Eyes: No change in vision, eye pain, light sensitivity or blurry vision ENT ENT: No headache(s), abnormal hearing, ear pain, tinnitus, nasal congestion, sore throat or neck pain Resp Respiratory: No snoring, cough, shortness of breath or wheezing Cardio Cardiology: No excessive sweating, chest pain at rest, chest pain with exertion, shortness of breath, dyspnea on exertion, palpitations, orthopnea or lightheadedness Gastro GI: No abdominal pain, change in bowel habits, constipation, diarrhea, vomiting, nausea/dyspepsia or cramping Genitourinary-Female: No burning urination, painful urination, urinary incontinence, urinary frequency, abnormal vaginal bleeding, pelvic pain or other Musc Musculoskeletal: No neck pain, abnormal walking, joint pain, back pain, limited range of motion, numbness or tingling Skin Skin: No redness, dry skin, itching, lesions, wounds or rash Neuro Neurology: No weakness, frequent falls, headache(s), abnormal hearing, abnormal walking, numbness, tingling, abnormal speech, dizziness or memory loss Psych Psychiatric: No change in appetite, No memory loss, No anxiety, No depression, No Thoughts of harming yourself/Others Endo Endocrine: No fatigue, excessive sweating, cold intolerance, increased thirst/drinking, heat intolerance, flushing or increased hunger Aller/Imm Allergy/Immunologic: No wheezing, itchy eyes, hives or seasonal allergy symptoms Kameron/Lymp Hematologic/Lymphatic: No easy bleeding, easy bruising or enlarged lymph nodes Exam Const General: cooperative, no acute distress Nutritional Appearance: obese morbidly obese Orientation: alert, awake, oriented x3 HENWI Head: normal to inspection, normocephalic, atraumatic Ears: hearing grossly normal bilaterally Neck Neck: full ROM, no lymphadenopathy Thyroid: diffusely enlarged Resp Effort AND Inspection: normal respiratory effort, able to speak in complete sentences Auscultation: Bilateral: Clear to Auscultation Cardio Rate: regular rate Rhythm: regular rhythm Heart Sounds: S1 normal, S2 normal GI Inspection: obesity Palpation: soft Other: No palpable masses appreciated. Other: Opening noted between the intergluteal cleft. Tender. Minimal discharge appreciated. Neuro General: alert, awake, oriented x3, moves all extremities, CN's II-XI intact bilaterally Psych Appearance: grossly normal Mental Status: mental status grossly normal Affect: normal affect Assessment AND Plan 1. Morbid obesity E66.01 Plan Patient is doing very well with the loss program. She is actively engaged in dietary modifications. I believe at this time she will benefit tremendously with pharmacological treatment. Prescription for Qsymia sent. Follow-up in 1 month. Also referred to plastic surgery to establish care for excess skin anticipated with weight loss. Orders Referrals: Medications New: phentermine-topiramate 7.5-46 mg Start after 2 week1 cap PO DAILY 30 caps 1RF s of 3.75mg/23mg. 2. Osteoarthritis M19.90 Plan Improved with weight loss. She was encouraged. NSAIDs as needed. This note was generated with Quackenworth dictation software. It may contain incorrect words, spelling, and punctuation that were not noted in checking the note before signing. Plan Detail Other Medications New: phentermine-topiramate 7.5-46 mg Start after 2 weeks of 3.71 cap PO DAILY 30 caps 2RF 5mg/23mg. Coding Level of Care Code Off vis,est,level 4 Diagnoses Morbid obesity E66.01 Osteoarthritis M19.90 05/01/18 0813 <Electronically signed by Shayna Quigley MD> Date Shayna Quigley MD Cosigner Signature: Date (if applicable) CC: INTERNAL MEDICINE Observed: 02/05/2018 Status: F Source: [place] OFFICE VISIT 4:[address] [facility] [address] [place] [address] [place] [address] OFFICE VISIT Date of Service: 01/29/18 MR#: [id number] Acct: [id number] Name: MARIAH SLACEDORICARDO Gilliam Rep #: [id number] : 1980 Provider: Shayna Quigley MD Age/Sex: 37/F Location: [facility] Status: Signed Intake Vital Signs01/29/18 Height 5 ft 4 in 01/29/18 Weight: 462 lb 2 oz Intake Visit Reasons: 6 WK FU Baton Teacher Required: No Accompanied by: None Is patient in pain?: Yes (left knee) Pain scale (1-10): 2 Allergies No Known Allergies Allergy (Verified 10/02/17 17:02) Medications albuterol sulfate HFA 90 mcg/actuation aerosol inhaler 2 puff INHALATION Q6H PRN #8 g 09/05/17 [Rx Confirmed 10/02/17] PFSH Family History Mother Myocardial infarction Hypertension Grandmother Hypertension Social History Smoking Status: Never smoker alcohol intake: never substance use type: does not use what type of physical activity do you participate in: none HPI HPI Details: RICKY SALCEDO, is a 37yo F who presents to the office today for follow up of her knee pain. He was referred to orthopedics at her last visit however she is yet to follow-up. She however states that the pain has somewhat reduced since the last about 15 pounds. She is eager to consider bariatric surgery for morbid obesity. She has started a significant lifestyle modifications. ROS Const Constitutional: No body ache, chills, fatigue, fever(s), frequent falls, weight change, sleep problems, change in appetite, snoring, excessive sweating or weakness Eyes Eyes: No blurry vision, change in vision, eye pain or light sensitivity ENT ENT: No abnormal hearing, ear pain, tinnitus, nasal congestion, nasal discharge, sore throat or neck pain Resp Respiratory: No snoring, cough, shortness of breath or wheezing Cardio Cardiology: No excessive sweating, chest pain at rest, chest pain with exertion, shortness of breath, dyspnea on exertion, orthopnea, palpitations or lightheadedness Gastro GI: No abdominal pain, change in bowel habits, diarrhea, constipation, vomiting, nausea/dyspepsia or cramping Genitourinary-Female: No difficulty urinating, burning urination, painful urination, urinary frequency, urinary urgency, urinary incontinence, blood in urine, urinary retention or urinary hesitancy Musc Musculoskeletal: No neck pain, abnormal walking, joint pain, back pain, limited range of motion, numbness or tingling Skin Skin: No redness, dry skin, itching, lesions, wounds or rash Neuro Neurology: No frequent falls, weakness, abnormal hearing, abnormal walking, numbness, tingling, abnormal speech, dizziness or memory loss Psych Psychiatric: No change in appetite, No memory loss, No anxiety, No depression, No Thoughts of harming yourself/Others Endo Endocrine: No fatigue, excessive sweating, cold intolerance, increased thirst/drinking, heat intolerance, increased hunger or flushing Aller/Imm Allergy/Immunologic: No wheezing, itchy eyes, seasonal allergy symptoms or hives Kameron/Lymp Hematologic/Lymphatic: No easy bleeding, easy bruising or enlarged lymph nodes Exam Const General: cooperative, no acute distress Nutritional Appearance: obese morbidly obese Orientation: alert, awake, oriented x3 HENMT Head: normal to inspection, normocephalic, atraumatic Ears: hearing grossly normal bilaterally Neck Neck: full ROM, no lymphadenopathy Thyroid: diffusely enlarged Resp Effort AND Inspection: normal respiratory effort, able to speak in complete sentences Auscultation: Bilateral: Clear to Auscultation Cardio Rate: regular rate Rhythm: regular rhythm Heart Sounds: S1 normal, S2 normal GI Inspection: obesity Palpation: soft Other: No palpable masses appreciated. Other: Opening noted between the intergluteal cleft. Tender. Minimal discharge appreciated. Neuro General: alert, awake, oriented x3, moves all extremities, CN's II-XI intact bilaterally Psych Appearance: grossly normal Mental Status: mental status grossly normal Affect: normal affect Assessment AND Plan 1. Osteoarthritis M19.90 Plan Improving with weight loss. patient encouraged. Advised to follow up with ortho. 2. Morbid obesity E66.01 Plan Patient with a BMI of 79. She however has started out on life style modifications and has so far lost 15 pounds. She was encourgaed. Referred to the [facility]. Follow up in 3 months. This note was generated with [employer]worth dictation software. It may contain incorrect words, spelling, and punctuation that were not noted in checking the note before signing. Plan Detail Other Orders Referrals: Coding Level of Care Code Off vis,est,level 3 Diagnoses Osteoarthritis M19.90 Morbid obesity E66.01 02/05/18 1628 <Electronically signed by Shayna Quigley MD> Date Shayna Quigley MD Cosigner Signature: Date (if applicable) CC: DOWNTIME REPORT Observed: 12/28/2017 Status: F Source: [place] 11:48 AM [facility] REPOSITORY [facility] Medical Records Department [address] [place] [address] Downtime Report MR#: [id number] Acct: [id number] Name: RICKY SALCEDO N Rep #: [id number] : 1980 37 From: Adrian Gutierres PCP: Shayna Quigley MD Status: REG RCR This patient was seen during an EMR downtime December 11, 2017 - December 18, 2017. This patient may have a combination of paper and electronic documentation or all paper documentation. All documentation is viewable within the e-chart portion of [facility] for each patient visit. EMERGENCY DEPARTMENT Observed: 10/02/2017 Status: F Source: [place] SUMMARY 11:56 PM [facility] REPOSITORY [facility] Medical Records Department [address] [place] [address] Emergency Department Summary 10/02/17 1834 MR#: [id number] Acct: [id number] Name: RICKY SALCEDO N Rep #: [id number] : 1980 37 From: French Fernandez MD PCP: Shayna Quigley MD Status: DEP ER - ER Visit Summary Date of Service: 10/02/17 Chief Complaint: Fever, cough History of Present Illness: The patient is a 37 F urgency department fever and cough. The patient has had symptoms for the past 24 hours. States yesterday at yazdanism, she had some scant myalgias. States that she had a nonproductive cough. Overnight throughout the day, the cough is worsened. She has begun to have increasing fevers, back pain, myalgias, and arthralgias. She has had productive sputum. She does have a history of asthma. She denies any history of immunosuppression. She denies any history of diabetes. She did not get a flu shot this year. She is unsure if she has had recent sick contacts. Physical Examination: Vital signs reviewed General: Well-nourished, well-developed Head: Normocephalic, atraumatic Eyes: Pupils equal and reactive, extraocular muscles intact Neck, supple, no lymphadenopathy Heart: Regular rate and rhythm Respiratory: No distress, wheezing in all sullivan Abdomen: Soft, nontender, nondistended, no peritoneal signs Back: Nontender Extremities: Nontender, no edema, no cords Skin: Normal color no rash Neuro: Alert and oriented, no focal or lateralizing deficits Test Results: [] Emergency Department Course and Treatment: The patient's symptoms do seem consistent with influenza. However, she was febrile here. She was given fluids, breathing treatments, Toradol. On reevaluation her aeration had improved. She was resting more comfortably. Her tachycardia had resolved. I did obtain screening labs. Her chest x-ray shows no acute infiltrate. The patient was influenza A positive. At this time, I am going to start the patient on Tamiflu if she is within the window after discussion with her. The patient will be discharged home. She was counseled on concerning symptoms, respiratory symptoms, and reasons to return. Family is comfortable with plan of care. Treatment Plan: [] Disposition: Discharge Impression:. Influenza This note was generated with Quackenworth dictation software. It may contain incorrect words, spelling, and punctuation that were not noted in review of the chart prior to signing ED Disposition - Plan for ED Patient: Chief Complaint: Fever Instructions: ED Flu Prescriptions: Oseltamivir Phosphate [Tamiflu] 75 mg PO BID #10 cap Referrals: Shayna Quigley MD [Primary Care Provider] - What to do if you have Problems For any increased pain, shortness of breath, bleeding, nausea or vomiting, chest pain, or any unexpected problems, contact your Primary Care Provider. Call [facility] ([phone]) or report to the closest Emergency Room. Call 911 if necessary. 10/02/17 7617 <Electronically signed by French Fernandez MD> Date French Fernandez MD Cosigner Signature (If Indicated): Date CC: Shayna Quigley MD CBC W/DIFF, AUTOMATED Collected: 10/02/2017 Status: F Source: [place] 5:55 PM [facility] REPOSITORY TYPE CODE TESTS RESULT OUT OF RANGE REFERENCE UNITS LAB L100.1000 4.4-11.0 K/mm3 Normal WBC 8.7 LAB L100.1200 4.2-5.4 M/mm3 Low RBC 4.06 LAB L100.1300 12.0-15.0 g/dl Low HGB 11.4 LAB L100.1400 37-47 % Low HCT 35.7 LAB L100.1500 81-99 fL Normal MCV 87.9 LAB L100.1600 27.0-32.0 pg Normal MCH 28.1 LAB L100.1700 32-36 g/gl Low MCHC 31.9 LAB L100.1810 11.6-14.6 % Normal RDW CV 14.2 LAB L100.1820 35.1-43.9 fl High RDW SD 45.8 LAB L100.1900 150-450 K/mm3 Normal PLT 254 LAB L100.2000 6.2-12.0 fl Normal MPV 9.4 LAB L100.2100 47-70 % High NEUT% 76.6 LAB L100.2200 19-41 % Low LY% 15.8 LAB L100.2300 0-10 % Normal MONO% 7.2 LAB L100.2400 0-5 % Normal EO% 0.1 LAB L100.2500 0-1 % Normal BASO% 0.2 LAB L100.2550 0.0-0.9 % Normal IM GRAN % 0.100 Result Comment: IG% - Immature Granulocytes (promyelocytes, myelocytes and metamyelocytes) > 1% indicates that a LEFT SHIFT is Present. LAB L100.2620 2.0-7.7 X10 3/uL Normal Absolute Neut 6.6 LAB L100.2720 0.83-4.51 X10 3/ul Normal Absolute Lymph 1.37 Performed By: #### L100.0100 #### [facility] [address] [place], [address] COMPREHENSIVE METABOLIC Collected: 10/02/2017 Status: F Source: [facility] 5:55 PM [facility] REPOSITORY TYPE CODE TESTS RESULT OUT OF RANGE REFERENCE UNITS LAB L501.0100 74-106 mg/dL Normal GLU 99 Result Comment: Please note revised GLUCOSE reference range effective 2017. LAB L501.1000 7-18 mg/dL Normal BUN 11 LAB L501.1100 0.55-1.02 mg/dL Normal CREAT,SERUM 0.82 Result Comment: The validity of the calculated GFR AND GFRAA in patients over 70 years has not been determined. Clinical correlation is essential. LAB L501.1110 >60 mL/min Normal EST GFR 83 Result Comment: Non- GFR Calc LAB L501.1115 >60 mL/min Normal EST GFR - AA 101 Result Comment: GFR Calc LAB L501.1255 ml/min Normal Estimated CRCL 81.90 LAB L501.1300 10-20 RATIO Normal BUN/CRE 13.3 LAB L501.1500 6.4-8. g/dL Normal 2 T PROT 7.6 LAB L501.1800 3.2-5. g/dL Low 0 ALB 2.9 LAB L501.1950 2.2-4. g/dL High 2 GLOB 4.7 LAB L501.2000 0.9-2. RATIO Low 4 A/G 0.6 LAB L501.2200 8.5-10 mg/dL Low .1 CA 8.0 LAB L501.4100 15-37 U/L Normal AST 17 Result Comment: Moderate Hemolysis, Result may be falsely increased. LAB L501.4305 45-117 U/L Normal ALK P 87 LAB L501.4405 13-56 U/L Normal ALT 17 Result Comment: Please note revised ALT reference range effective 2017. LAB L501.4600 0.20-1.00 mg/dL Normal T BILI 0.30 LAB L501.5300 136-145 mmol/L Normal NA 137 LAB L501.5600 3.5-5.1 mmol/L Normal K 4.2 Result Comment: Moderate Hemolysis, Result may be falsely increased. LAB L501.5900 98-107 mmol/L Normal CL 104 LAB L501.6100 21.0-32.0 mmol/L Normal CO2 27.0 LAB L501.6200 5-15 Normal 6 GAP Performed By: #### L500.4050 #### [facility] [address] [place], [address] Observed: 10/02/2017 Status: C Source: [place] INFLUENZA A+B (RAPID 5:30 PM [facility] ANSELMO) REPOSITORY Order Date: 10/02/17 FLU A/B Rapid * This is an amended result. * A prior result that was reported as final has been changed. 10/11/17 1512 by ROLAND Previously reported as: NONE REPORTED Negative test results should be confirmed by culture. Order Rapid Viral Culture for Influenzae A+B ([id number]) if clinically indicated. CRITICAL VALUE VERIFIED. CALLED TO LUIS CARLOS ZELAYA 10/02/17 1820 Peter Ruff. RESULTS READ BACK BY LUIS CARLOS . Sent directly to [facility]CTION [facility]OL. 10/02/17 1822 [employer] Influenza Ag, Direct POSITIVE for the presence of INFLUENZA A Antigen only ORGANISM 1: INFLUENZAE A Performed By: #### M101.0101 #### [facility] [address] [place], [address] CHEST PA AND LATERAL Observed: 10/02/2017 Status: F Source: [place] 5:22 PM [facility] REPOSITORY [facility] Imaging Services [address] [place] [address] Chest PA and Lateral MR#: [id number] Acct: [id number] Name: RICKY SALCEDO Rep #: [id number] : 1980 F 37 From: Miguel Cope MD PCP: Shayna Quigley MD Status: REG ER Study: Chest PA and Lateral Date of Exam: 10/02/17 Exam# [id number] Ordering Dr: French Fernandez MD STUDY: X-RAY CHEST REASON FOR EXAM: Female, 37 years old. C/O PAIN ALL OVER, COUGH THAT STARTED TODAY TECHNIQUE: Frontal and lateral views of the chest. COMPARISON: None. FINDINGS: The lungs are clear and expanded. There is no demonstrated pleural abnormality. Normal size heart. Normal mediastinum and francy. Normal visualized pulmonary arteries. Normal visualized aortic arch and descending thoracic aorta. Normal visualized thoracic spine. Normal visualized ribs, clavicles, and shoulders. There is no demonstrated abnormality of the visualized soft tissue structures of the upper abdomen. RAD/Chest PA and Lateral IMPRESSION: Normal x-ray examination of the chest. Electronically Signed: Miguel Cope MD at 18:29 EDT , Service support , CC: Shayna Quigley MD; French Fernandez MD [employer] Manager Architect: Signed Observed: 09/11/2017 Status: F Source: [place] CULTURE, DEEP WOUND 3:15 PM [facility] REPOSITORY Gram Stain Gram Stain Rare White Blood Cells Rare Gram positive cocci Wound Culture #2 There are no CLSI standards for interpretation of this Drug/Organism combination. ORGANISM 1: Staphylococcus epidermidis Amount Growth 1+ ORGANISM 2: Corynebacterium minutissimum Amount Growth 2+ Staphylococcus epidermidis: REACTION Benzylpenicillin NF 0.25 R Cefoxitin *NF - Clindamycin $$ <=0.25 S Inducable Clindamycin Resistan - Erythromycin $ <=0.25 S Gentamicin $ <=0.5 S Levofloxacin $ <=0.12 S Linezolid $$$$ 1 S Oxacillin NF <=0.25 S Tigecycline $$$$ <=0.12 S Rifampin $$ <=0.5 S Tetracycline NF <=1 S Vancomycin $ 1 S (NF) indicates non-formulary drug at [facility]. Approval by Infectious Disease Specialist required before non-formulary drugs may be ordered and/or dispensed. * CLSI guidelines does not recommend testing of cephalosporins. This interpretation is deduced from Beta-lactam/penicillin results. Cult, Anaerobic Studies have confirmed that Anaerobic Gram Positive Cocci are routinely susceptible to: Penicillin/Ampicillin, Ampicillin/Sulbactam, Piperacillin/Tazobactam, Cefoxatin, Ertapenem, Imipenem, Meropenem and Metronidazole and vary in resistance to: Clindamycin and Moxifloxacin. Studies have confirmed that Prevotella, Porphyromonas and Bacteroides species other than B. fragilis group are routinely susceptible to: Ampicillin/Sulbactam, Piperacillin/Tazobactam, Cefoxitin, Tigecycline, Ertapenem, Imipenem, Meropenem and Metronidazole and variable in resistance to: Penicillin/Ampicillin, Clindamycin and Moxifloxacin. ORGANISM 1: Anaerobic cocci ORGANISM 2: Prevotella disiens Beta Lactamase Negative Performed By: #### M100.1500 #### [facility] [address] [place], [address] SURGERY VISIT REPORT Observed: 09/11/2017 Status: F Source: [place] 1:52 PM [facility] REPOSITORY [facility] [address] [place] [address] OFFICE VISIT Date of Service: 09/11/17 MR#: [id number] Acct: [id number] Name: RICKY SALCEDO Rep #: [id number] : 1980 Provider: Rosamaria Silver MD Age/Sex: 37/F Location: [facility] Status: Signed Intake Vital Signs09/11/17 Height 5 ft 4 in 09/11/17 Weight: 477 lb 09/11/17 Body Mass Index (BMI) 81.8 09/11/17 Respiratory Rate 16 Intake Visit Reasons: pilonidal cyst/patient wanted this date Baton Teacher Required: No Is patient in pain?: No Allergies No Known Allergies Allergy (Verified 09/11/17 13:18) Medications Naproxen [Naprosyn] 500 mg PO BID PRN #20 tab 10/08/15 [Rx Confirmed 09/11/17] albuterol sulfate HFA 90 mcg/actuation aerosol inhaler 2 puff INHALATION Q6H PRN #8 g 09/05/17 [Rx Confirmed 09/11/17] levocetirizine 5 mg tablet 5 mg PO QHS #30 tab 09/05/17 [Rx Confirmed 09/11/17] amoxicillin 875 mg-potassium clavulanate 125 mg tablet 1 tab PO BID 5 Days #10 tab 09/11/17 [Rx Confirmed 09/11/17] PFSH Family History Mother Myocardial infarction Hypertension Grandmother Hypertension Social History Smoking Status: Never smoker alcohol intake: never substance use type: does not use what type of physical activity do you participate in: none HPI HPI HPI: RICKY SALCEDO, is a 37 F who presents to the office today for possible pilonidal cyst abscess. Patient states that she has had draining area at the top of her gluteal cleft for about 2-3 years states it drains all the time it can be yellow/bloody. Patient does clean it with soap and water and also occasionally uses peroxide as well and places a tissue to help control the drainage. Patient currently denies any pain unless she wipes at the wrong way when she is cleaning it. Patient states that when she initially noticed this she did have pain at that site. Patient denies any fevers or chills or seeing a doctor regarding this previously before seeing Dr. Quigley. ROS General General: Yes weight change (Patient's gained about 15-20 pounds last 6-7 months. ); no fatigue Additional Details: She states she would consider weight loss surgery however her employer opted out of this coverage for her medical skin. Gastro Gastrointestinal: No abdominal pain, No nausea or vomiting, No diarrhea, No constipation, No ulcers, No hemorrhoids, No acid reflux, No blood in stool, No gallbladder problem, No black,tarry stools Exam Const General: cooperative, comfortable, no acute distress Nutritional Appearance: obese Orientation: alert, awake, oriented x3 Neck Thyroid: diffusely enlarged GI Other: Superior gluteal cleft: About 14 cm superior from her anus. Open wound about 3 mm with multiple pilonidal pits., Drainage, dirty dishwater color in small amounts. No areas of erythema. Assessment AND Plan Problems 1. Pilonidal abscess L05.01 Plan Discussed with patient that her drainage is due to pilonidal abscess. Since this is openly draining currently no need for further I AND D at this point. Did obtain culture for anaerobic and aerobic cultures to help with antibiotic selection. Will start patient on Augmentin 875 p.o. twice daily for 5 days and follow-up with patient in 1 week to see if this is improving and will also follow along with cultures. Patient was agreeable to plan. Rosamaria Silver M.D. Pager: [phone] [facility] [address] [place] [address], [address] [place] [id number] Office: [phone] Orders Orders: Medications New: Plan Detail Follow Up 1 Week Coding Level of Care Code Off vis,new,level 3 Diagnoses Pilonidal abscess L05.01 09/11/17 1352 <Electronically signed by Rosamaria Silver MD> Date Rosamaria Silver MD Cosigner Signature: Date (if applicable) CC: Shayna Quigley MD THYROID STIM HORMONE Collected: 09/11/2017 Status: F Source: [place] (TSH) 10:24 AM [facility] REPOSITORY TYPE CODE TESTS RESULT OUT OF RANGE REFERENCE UNITS LAB L501.9520 0.358-3.74 uIU/mL Normal TSH 1.27 Performed By: #### L501.9520, L506.0400 #### [facility] [address] [place], [place], [address] T4 FREE DIRECT Collected: 09/11/2017 Status: F Source: [place] 10:24 AM [facility] REPOSITORY TYPE CODE TESTS RESULT OUT OF RANGE REFERENCE UNITS LAB L506.0400 0.76-1.46 ng/dL Normal T4 FREE 1.08 DIRECT Performed By: #### L501.9520, L506.0400 #### [facility] [address] [place], [address] INTERNAL MEDICINE Observed: 09/05/2017 Status: F Source: [place] OFFICE VISIT 2:58 PM [facility] REPOSITORY [facility] [address] [place] [address] OFFICE VISIT Date of Service: 09/04/17 MR#: [id number] Acct: [id number] Name: MARIAH SALCEDOHA Rep #: [id number] : 1980 Provider: Shayna Quigley MD Age/Sex: 37/F Location: [facility] [facility] Status: Signed Intake Vital Signs09/04/17 Height 5 ft 4 in 09/04/17 Weight: 477 lb Intake Visit Reasons: EST CARE - NEW PCP Baton Teacher Required: No Accompanied by: Is patient in pain?: Yes (left shoulder ) Pain scale (1-10): 5 Allergies No Known Allergies Allergy (Verified 07/16/13 14:06) Medications Naproxen [Naprosyn] 500 mg PO BID PRN #20 tab 10/08/15 [Rx] albuterol sulfate HFA 90 mcg/actuation aerosol inhaler 2 puff INHALATION Q6H PRN #8 g 09/05/17 [Rx Confirmed 09/05/17] levocetirizine 5 mg tablet 5 mg PO QHS #30 tab 09/05/17 [Rx Confirmed 09/05/17] PFSH Family History Mother Myocardial infarction Hypertension Grandmother Hypertension Social History Smoking Status: Never smoker alcohol intake: never substance use type: does not use what type of physical activity do you participate in: none HPI HPI Details: RICKY SALCEDO, is a 37yo F with past medical history of morbid obesity and chronic cough who presents to the office today to establish care. She has some concerns. She reports an almost lifelong struggle with weight management. She has tried some pharmacological therapy however these have not been consistent. At some point she was enrolled in the why weight program and states that she did note some weight loss however, on discontinuing she regained the weight. She has considered weight loss surgery however this is not covered by her insurance. She reports cough which has been ongoing for at least 21 years. Said to be worse at night. Occasionally has paroxysms of cough. She also reports watery eyes. She denies any known history of asthma. She also reports recurrent swelling/discharge from her rectal area ( Around her tail bone ). She states that this has been ongoing for several years. Occasionally she puts in hydrogen peroxide to help with the foul-smelling discharge. She denies significant pain at the site. ROS Const Constitutional: No body ache, chills, fatigue, fever(s), frequent falls, headache(s), weight change, sleep problems, change in appetite, snoring, excessive sweating or weakness Eyes Eyes: No blurry vision, change in vision, eye pain or light sensitivity ENT ENT: No headache(s), abnormal hearing, ear pain, tinnitus, nasal congestion, nasal discharge, sore throat or neck pain Resp Respiratory: Positive for cough and other (night time cough); no snoring, shortness of breath or wheezing Cardio Cardiology: No excessive sweating, chest pain at rest, chest pain with exertion, shortness of breath, dyspnea on exertion, orthopnea, palpitations or lightheadedness Gastro GI: No abdominal pain, change in bowel habits, diarrhea, constipation, vomiting, nausea/dyspepsia or cramping Genitourinary-Female: No difficulty urinating, burning urination, painful urination, urinary frequency, urinary urgency, urinary incontinence, blood in urine, urinary retention or urinary hesitancy Musc Musculoskeletal: Positive for joint pain, back pain, muscle cramps and stiffness; no neck pain, abnormal walking, limited range of motion, numbness or tingling Skin Skin: No redness, dry skin, itching, lesions, wounds or rash Neuro Neurology: No frequent falls, headache(s), weakness, abnormal hearing, abnormal walking, numbness, tingling, abnormal speech, dizziness or memory loss Psych Psychiatric: No change in appetite, No memory loss, No anxiety, No depression, No Thoughts of harming yourself/Others Endo Endocrine: No fatigue, excessive sweating, cold intolerance, increased thirst/drinking, heat intolerance, increased hunger or flushing Aller/Imm Allergy/Immunologic: No wheezing, itchy eyes, seasonal allergy symptoms or hives Kameron/Lymp Hematologic/Lymphatic: No easy bleeding, easy bruising or enlarged lymph nodes Exam Const General: cooperative, no acute distress Nutritional Appearance: obese morbidly obese Orientation: alert, awake, oriented x3 [facility] Head: normal to inspection, normocephalic, atraumatic Ears: hearing grossly normal bilaterally Neck Neck: full ROM, no lymphadenopathy Thyroid: diffusely enlarged Resp Effort AND Inspection: normal respiratory effort, able to speak in complete sentences Auscultation: Bilateral: Clear to Auscultation Cardio Rate: regular rate Rhythm: regular rhythm Heart Sounds: S1 normal, S2 normal GI Inspection: obesity Palpation: soft Other: No palpable masses appreciated. Other: Opening noted between the intergluteal cleft. Tender. Minimal discharge appreciated. Neuro General: alert, awake, oriented x3, moves all extremities, CN's II-XI intact bilaterally Psych Appearance: grossly normal Mental Status: mental status grossly normal Affect: normal affect Assessment AND Plan 1. Morbid obesity E66.01 Plan Patient reports being over weight / obese since at least age 15. She states that she has also tried several pharmacological treatments without sustained benefits. She however appears to have been inconsistent with her previous approaches. Open to the Why weight program - Referral given. Counselled patient extensively on the need for consistency. Will follow. Orders Referrals: 2. Chronic cough R05 Plan On going for years. Said to be worse at night. Occasionally said to be associated with increased tearing /watery eyes and wheezing Possibly allergic / cough variant asthma. Start Xyzal 5mg QHS. Albuterol inhaler as needed. Follow up in 1 month. 3. Pilonidal sinus L05.92 Plan Recurrent discharge for years. She has sought no intervention. Mildly foul smelling discharge noted. Refer to Gen. Surgery Orders Referrals: 4. Enlarged thyroid E04.9 Plan Enlarged thyroid noted on examination. Patient admits to chronic swelling and prior ultrasound/ need for biopsy. Ultrasound done here at [facility] which showed multiple nodules. Recommendations were for Nuclear study or biopsy. Thyroid function done 11/14/16 was within normal. Will recheck. Discuss referral to General surgery for biopsy at her next visit. Orders Orders: 5. Plantar fasciitis, bilateral M72.2 Plan More however on the left. Most likely due to obesity and history of Pes Planus. NSAIDS and exercises recommended. Will refer to Podiatry if no significant improvement with current management. This note was generated with [employer]ackenworth dictation software. It may contain incorrect words, spelling, and punctuation that were not noted in checking the note before signing. Plan Detail Other Medications New: albuterol sulfate HFA 90 mcg/actuat2 puffs Inhalation Q6H PRN shortne Shayna Quigley MD ion administer with spacer ss of breath or wheezing Follow Up 1 Month Coding Level of Care Code Off vis,new,level 4 Diagnoses Morbid obesity E66.01 Chronic cough R05 Pilonidal sinus L05.92 Enlarged thyroid E04.9 Plantar fasciitis, bilateral M72.2 09/05/17 1458 <Electronically signed by Shayna Quigley MD> Date Shayna Lentzigner Signature: Date (if applicable) CC: ALLERGIES ALLERGIES DATE TYPE / CODE NAME / CODE REACTION SEVERITY SOURCE 06/26/2018 Drug No Known Unknown [facility] Allergy/416 Allergies/R00478 Hospital 453868(SNOM 0388(RXNORM) Repository ED CT) Drug NO KNOWN [facility] Class/28232 ALLERGIES Other [place] 1003(SNOMED Repository CT) NG/[id number] NO KNOWN [facility] 6([facility] CT) Repository ENCOUNTERS ENCOUNTERS ADMIT/DISCHARGE ACCOUNT NUMBER ADMITTING ENCOUNTER LOCATION SOURCE CLASS 06/26/2018/06/26/20 [id number] Ambulatory BMSBuilding: [place] 18 [facility] Repository 06/19/2018/06/19/20 [id number] Emergency [address] ding:ED Repository 06/15/2018/06/17/20 [id number] [facility] [address] Other [place] Repository 06/15/2018/06/17/20 [id number] [facility] Inpatient [place] [facility] [address] [place] [address] MEDICAL Repository [place]: 5257Bed: 06/15/2018 [id number] [facility] Inpatient [facility] 06/15/2018/06/15/20 [id number] Emergency [address] ding:ED Repository 04/30/2018/04/30/20 [id number] Ambulatory BMSBuilding: [place] [address] [place] [address] Repository 04/19/2018 [id number] Ambulatory [facility] ding:NS Repository 03/14/2018/03/14/20 [id number] Ambulatory [address] ding:NS Repository 02/21/2018/03/09/20 [id number] Ambulatory [place] [facility] ding:NS Repository 01/31/2018/02/07/20 [id number] Ambulatory [place] [facility] ding:NS Repository 01/29/2018/01/30/20 [id number] Ambulatory BMSBuilding: [place] 18 [facility] Repository 01/03/2018/01/07/20 [id number] Ambulatory [place] [facility] ding:NS Repository 12/19/2017 [id number] [facility] [place] [facility]RAD.FUT Repository URE 12/11/2017/12/12/19 [id number] Ambulatory BMSBuilding: [place] 18 [facility] Repository 11/27/2017/12/08/19 [id number] Ambulatory [place] [facility] ding:NS Repository 11/01/2017/11/07/19 [id number] Ambulatory [place] [facility] ding:NS Repository 10/02/2017/10/03/19 [id number] Emergency [place] [facility] ding:ED Repository 09/11/2017/09/12/19 [id number] Ambulatory BMSBuilding: [place] 18 [facility] Repository 09/11/2017 [id number] [facility] [place] [facility] ding:MTLAB Repository 09/06/2017 [id number] Ambulatory BMSBuilding: [place] [facility] Repository 09/04/2017/09/04/19 [id number] Ambulatory BMSBuilding: [place] 18 [facility]MS.[facility] Repository PAYERS PAYERS ENCOUNTER GUARANTOR PAYER SUBSCRIBER SOURCE 06/26/2018 RICKY N Primary NOT GIVENUNK [place] [id number] Insurance:SELF PAY [address] Number: Effective Repository [id number]: (330) Date:2018-06-21 [phone] (HP) 06/19/2018 RICKY N Primary RICKY N [place] [id number] Insurance:CARESOURCEP HENRYDOB: [facility] MOSHE CANO oljovanay Number: [id number] [id number] Repository [address]Cfa: (330) Date:2018-06-19P O [phone] () [address]ATTN: [place] [address]CI: 06/19/2018 Secondary NOT GIVENUNK [place] Insurance:SELF PAY [facility] Number: Effective Repository Date:2018-06-19 06/15/2018 TIESHIA N Primary TIESHIA N [facility] HENRYDOB: Insurance:CARESOURCE [place] [facility] MEDICAIDPolicy [id number] Repository MOSHE CANO Number: [address] [place] [address] [id number]: (489) Date: [phone] () 06/15/2018 RICKY N Primary RICKY N [place] [id number] Insurance:CARESOURCEP HENRYDOB: [facility] MOSHE CANO cesar Number: [id number] [id number] Repository [address]Vvv: (330) Date:2018-06-15P O [phone] () [address]ATTN: [place] [address]CK: 06/15/2018 Secondary NOT GIVENUNK [place] Insurance:SELF PAY [facility] Number: Effective Repository Date:2018-06-15 04/30/2018 RICKY N Primary RICKY N [place] [id number] Insurance:MEDICAL HENRYDOB: [facility] MOSHE BEAULIEUAPT [facility] [id number] Number: Repository [address]Tud: 330 [id number] [phone] () Date:1488-27-23NG [address], [place] [address]XT: 04/30/2018 Secondary NOT GIVENUNK [place] Insurance:SELF PAY [facility] Number: Effective Repository Date:2018-04-30 04/19/2018 RICKY N Primary RICKY N [place] [id number] Insurance:MEDICAL HENRYDOB: [facility] MOSHE CANO [facility] [id number] Number: Repository [address]Bio: 330 [id number] [phone] (HP) Date:4541-47-02EE [address] [place] [address]SE: 04/19/2018 Secondary NOT GIVENUNK [place] Insurance:SELF PAY [facility] Number: Effective Repository Date:2018-04-09 03/14/2018 RICKY N Primary RICKY N [place] [id number] Insurance:MEDICAL HENRYDOB: [facility] MOHSE CANO [facility] [id number] Number: Repository [address]Ptf: 330 [id number] [phone] (HP) Date:4184-74-64EO [address] [place] [address]BF: 03/14/2018 Secondary NOT GIVENUNK [place] Insurance:SELF PAY [facility] Number: Effective Repository Date:2018-03-10 02/21/2018 RICKY N Primary RICKY N [place] [id number] Insurance:MEDICAL HENRYDOB: [facility] MOSHE CANO [facility] [id number] Number: Repository [address]Tlp: 330 [id number] [phone] (HP) Date:5122-51-28SU [address] [place] [address]LE: 02/21/2018 Secondary NOT GIVENUNK [place] Insurance:SELF PAY [facility] Number: Effective Repository Date:2018-02-07 01/31/2018 RICKY N Primary RICKY N [place] [id number] Insurance:MEDICAL HENRYDOB: [facility] MOSHE CANO [facility] [id number] Number: Repository [address]Wtt: 330 [id number] [phone] (HP) Date:4258-74-28IB [address] [place] [address]EX: 01/31/2018 Secondary NOT GIVENUNK [place] Insurance:SELF PAY [facility] Number: Effective Repository Date:2018-01-07 01/29/2018 RICKY N Primary RICKY N [place] [id number] Insurance:MEDICAL HENRYDOB: [facility] MOSHE CANO [facility] [id number] Number: Repository [address]Pln: 330 [id number] [phone] (HP) Date:4978-84-54EW [address] [place] [address]HX: 01/29/2018 Secondary NOT GIVENUNK [place] Insurance:SELF PAY [facility] Number: Effective Repository Date:2018-01-29 01/03/2018 RICKY N Primary RICKY N [place] [id number] Insurance:MEDICAL HENRYDOB: [facility] NORMROBBIE CANO [facility] [id number] Number: Repository [address]Axt: 330 [id number] [phone] () Date:4471-43-16ZP [address] [address]DE: 01/03/2018 Secondary NOT GIVENUNK [place] Insurance:SELF PAY [facility] Number: Effective Repository Date:2017-12-08 12/19/2017 RICKY N Primary RICKY N [place] [id number] Insurance:MEDICAL HENRYDOB: Community MOSHE CANO [facility] [id number] Number: Repository [address]Mhk: 330 [id number] [phone] () Date:6697-13-19OR [address] [address]MW: 12/19/2017 Secondary NOT GIVENUNK [place] Insurance:SELF PAY [facility] Number: Effective Repository Date:2017-12-19 12/11/2017 RICKY N Primary RICKY N [place] [id number] Insurance:MEDICAL HENRYDOB: Community [address] [facility] [id number] Number: Repository [address]Juh: 330 [id number] [phone] (HP) Date:9178-36-35IK [address] [place] [address]AG: 12/11/2017 Secondary NOT GIVENUNK [place] Insurance:SELF PAY [facility] Number: Effective Repository Date:2017-12-21 11/27/2017 RICKY N Primary RICK[place] N [place] [id number] Insurance:MEDICAL HENRYDOB: [facility] MOSHE CANO [facility] [id number] Number: Repository [address]Toh: 330 [id number] [phone] (HP) Date:3633-24-73BP [address] [place] [address]HQ: 11/27/2017 Secondary NOT GIVENUNK [place] Insurance:SELF PAY [facility] Number: Effective Repository Date:2017-11-07 11/01/2017 RICKY N Primary RICKY N [place] [id number] Insurance:MEDICAL HENRYDOB: [facility] MOSHE CANO [facility] [id number] Number: Repository [address]Xda: 330 [id number] [phone] () Date:2810-57-46QJ [address] [place] [address]DO: 11/01/2017 Secondary NOT GIVENUNK [place] Insurance:SELF PAY [facility] Number: Effective Repository Date:2017-09-26 10/02/2017 RICKY N Primary RICKY N [place] [id number] Insurance:MEDICAL HENRYDOB: [facility] MOSHE CANO [facility] [id number] Number: Repository [address]Ipx: 330 [id number] [phone] (HP) Date:4096-02-52YY [address] [place] [phone]: 10/02/2017 Secondary NOT GIVENUNK [place] Insurance:SELF PAY [facility] Number: Effective Repository Date:2017-10-02 09/11/2017 RICKY N Primary RICKY N [place] [id number] Insurance:MEDICAL HENRYDOB: Community [address] [facility] [id number] Number: Repository [address]Txz: 330 [id number] [phone] () Date:3015-01-14WV [address] [place] [address]SW: 09/11/2017 Secondary NOT GIVENUNK [place] Insurance:SELF PAY [facility] Number: Effective Repository Date:2017-09-05 09/11/2017 RICKY N Primary RICKY N [place] [id number] Insurance:MEDICAL HENRYDOB: [facility] NORMMADDIY [facility] [id number] Number: Repository [address]Tzf: 330 [id number] [phone] () Date:4558-75-33LE[address] [address]PJ: 09/11/2017 Secondary NOT GIVENUNK [place] Insurance:SELF PAY [facility] Number: Effective Repository Date:2017-09-11 09/06/2017 RICKY BARNETT2 Primary RICKY HENRYDOB: [place] [address] Insurance:MEDICAL [id number] [address] [address]Tgr: (330) Number: Repository [phone] () [id number] Date:1736-22-20VD [address] [address]DC: 09/06/2017 Secondary NOT GIVENUNK [place] Insurance:SELF PAY [facility] Number: Effective Repository Date:2017-09-05 09/04/2017 RICKY BARNETT2 Primary RICKY HENRYDOB: [place] [address] Insurance:MEDICAL [id number] [address] [address]Fgu: (330) Number: Repository [phone] HP) [id number] Date:2481-37-65PN [address], [place] [address]FF: 09/04/2017 Secondary NOT GIVENUNK [place] Insurance:SELF PAY [facility] Effective Repository Date:2017-08-18
== END 2018-06-19 17:34 | disposition home or self-care (01) ==
PROVIDERS: Emergency Provider Emergency Medicine; Family Provider Internal Medicine; PCP Internal Medicine
DX: K80.70 Calculus of gallbladder and bile duct without cholecystitis without obstruction (principal); E66.9 Obesity, unspecified
CPT/HCPCS: 76705; 80053; 83690; 85025; 96374; 96376; 99283; A4216

== ENCOUNTER → 2018-08-16 12:44 | Outpatient (CLI) | payer MEDICAID, SELFPAY ==
[2018-08-07 10:07] VITALS: BMI 74.4
[2018-08-15 09:07] VITALS: BMI 74.4
--- NOTE | 2018-08-16 12:50 | US_ITS ---
STUDY: THYROID ULTRASOUND REASON FOR EXAM: Female, 38 years old. Goiter. Nodules TECHNIQUE: Ultrasound evaluation of the thyroid was performed with real-time and static payton-scale imaging. COMPARISON: Thyroid ultrasound November 14, 2016. FINDINGS: RIGHT LOBE: The right lobe of the thyroid gland measures 6.6 x 3.6 x 2.3 cm. There is a homogeneous echotexture. There are no demonstrated solid, cystic or complex lesions. LEFT LOBE: The left lobe of the thyroid gland measures 7.7 x 4.8 x 4.5 cm. There is a homogeneous echotexture. There are 2 adjacent heterogeneous solid nodules. The dominant lesion occupies the mid to lower pole, measuring 5.0 x 4.8 x 4.0 cm. A second 2.1 x 2.0 x 1.5 cm lesion is just superior to this, extending into the left margin of the thyroid isthmus. ISTHMUS: The isthmus measures 8 mm. The regional lymph nodes are normal. US/Thyroid IMPRESSION: Increased size of dominant, heterogeneous solid nodule in the lower pole of the left thyroid lobe. A second nodule just superior to the dominant lesion is borderline increased in size. Electronically Signed: Shabbir Cobb MD at 12:09 EST , Service support ,
== END ==
PROVIDERS: Family Provider Internal Medicine; PCP Internal Medicine; Referring Provider Internal Medicine; Visit Provider Internal Medicine
DX: E04.9 Nontoxic goiter, unspecified (principal)
CPT/HCPCS: 76536

== ENCOUNTER → 2018-10-16 | Outpatient (CLI) | payer MEDICAID, SELFPAY ==
[2018-08-15 09:07] VITALS: BMI 74.4
== END | disposition home or self-care (01) ==
LOC: SL 20:29
PROVIDERS: Family Provider Internal Medicine; PCP Internal Medicine; Referring Provider Internal Medicine Critical Care Medicine; Visit Provider Internal Medicine Critical Care Medicine
DX: G47.33 Obstructive sleep apnea (adult) (pediatric) (principal); E66.01 Morbid (severe) obesity due to excess calories
CPT/HCPCS: 95810

== ENCOUNTER → 2018-10-25 | Outpatient (CLI) | payer MEDICAID, SELFPAY ==
[2018-10-25 08:35] VITALS: BMI 74.4
[2018-10-25 09:39] LABS: T4 Free Direct 0.99 ng/dL (0.76-1.46); Thyroid Stim Hormone (TSH) 1.74 uIU/mL (0.358-3.74)
== END | disposition home or self-care (01) ==
PROVIDERS: Family Provider Internal Medicine; PCP Internal Medicine; Referring Provider Surgery; Visit Provider Surgery
DX: E04.1 Nontoxic single thyroid nodule (principal); E04.9 Nontoxic goiter, unspecified
CPT/HCPCS: 36415; 84439; 84443

== ENCOUNTER → 2018-10-30 | Outpatient (CLI) | payer MEDICAID, SELFPAY ==
[2018-10-30 14:44] VITALS: BMI 74.4
[2018-11-02 13:14] LABS: HPV APTIMA, High Risk Negative (Negative)
== END | disposition home or self-care (01) ==
LOC: LABSPEC 17:03
PROVIDERS: Family Provider Internal Medicine; PCP Internal Medicine; Referring Provider Obstetrics & Gynecology; Visit Provider Obstetrics & Gynecology
DX: Z12.4 Encounter for screening for malignant neoplasm of cervix (principal)
CPT/HCPCS: 87624; 88175; G0145

== ENCOUNTER → 2018-12-05 | Outpatient (CLI) | payer MEDICAID, SELFPAY ==
[2018-10-30 14:44] VITALS: BMI 74.4
--- NOTE | 2018-12-05 15:05 | RAD_ITS ---
STUDY: X-RAY CHEST REASON FOR EXAM: Female, 38 years old. Preop for gastric bypass TECHNIQUE: PA and lateral views of the chest. COMPARISON: 10/02/2017 FINDINGS: The lungs are clear and expanded. There is no demonstrated pleural abnormality. Normal size heart. Normal mediastinum and francy. Normal visualized pulmonary arteries. Normal visualized aortic arch and descending thoracic aorta. There are diffuse degenerative changes of the visualized thoracic spine. Normal visualized ribs, clavicles, and shoulders. There is no demonstrated abnormality of the visualized soft tissue structures of the upper abdomen. RAD/Chest PA and Lateral IMPRESSION: No acute pulmonary process Electronically Signed: Shabbir Antony MD at 15:31 EDT , Service support ,
[2018-12-05 15:09] LABS: Hematocrit 37.8 % (37-47); Hemoglobin 12.4 g/dl (12.0-15.0); Mean Corp Hgb Conc 32.8 g/gl (32-36); Mean Corpuscular Hgb 28.8 pg (27.0-32.0); Mean Corpuscular Volume 87.9 fL (81-99); Mean Platelet Vol. 9.7 fl (6.2-12.0); Platelet Count 248 K/mm3 (150-450); RBC Distribution Width CV 13.7 % (11.6-14.6); RBC Distribution Width SD 43.6 fl (35.1-43.9); White Blood Count 6.1 K/mm3 (4.4-11.0)
[2018-12-05 15:13] LABS: Scan Indicated on CBC? Y/N NO
--- NOTE | 2018-12-05 15:19 | EKG12_ITS ---
Test Reason : Blood Pressure : / mmHG Vent. Rate : 063 BPM Atrial Rate : 063 BPM P-R Int : 204 ms QRS Dur : 082 ms QT Int : 430 ms P-R-T Axes : 070 058 032 degrees QTc Int : 440 ms Normal sinus rhythm with sinus arrhythmia Normal ECG Confirmed by TC MCKEE, JACKSON ([id number]), deputy editor in chief OZZY GUTIERRES ([id number]) on 12/10/2018 3:03:20 PM Referred By: OUT DOCTOR Confirmed By:JACKSON MONTEZ MD
[2018-12-05 15:35] LABS: PTHIN 64.1 pg/mL (18.4-80.1); Vitamin B12 425 pg/mL (211-911)
[2018-12-05 15:40] LABS: ALB/GLOB Ratio 0.7 RATIO (0.9-2.4); AST(SGOT) 15 U/L (15-37); Alanine Aminotransfer ALT/SGPT 16 U/L (13-56); Alkaline Phosphatase 87 U/L (45-117); Anion Gap 5 (5-15); BUN 16 mg/dL (7-18); BUN/Creat Ratio 17.3 RATIO (10-20); Calcium,Total 8.5 mg/dL (8.5-10.1); Chloride 107 mmol/L (98-107); Creatinine, Serum 0.92 mg/dL (0.55-1.02); EST Glomerular Filtration Rate 72 mL/min (>60); Est Glom Filt Rate - Afr Amer 88 mL/min (>60); Ferritin 78 ng/mL (8-252); Globulin 4.5 g/dL (2.2-4.2); Glucose 76 mg/dL (74-106); Iron 55 ug/dL (50-170); Iron Binding Capacity,Total 235 ug/dL (250-450); Potassium 3.9 mmol/L (3.5-5.1); Protein, Total 7.5 g/dL (6.4-8.2); Sodium Level 141 mmol/L (136-145)
[2018-12-11 11:49] LABS: Vitamin B1, Thiamine 97.4 nmol/L (66.5-200.0)
== END | disposition home or self-care (01) ==
LOC: LAB 14:36
PROVIDERS: Family Provider Internal Medicine; PCP Internal Medicine
DX: E04.9 Nontoxic goiter, unspecified (principal); E66.01 Morbid (severe) obesity due to excess calories; G47.33 Obstructive sleep apnea (adult) (pediatric); Z68.45 Body mass index [BMI] 70 or greater, adult
CPT/HCPCS: 36415; 71046; 80053; 82306; 82607; 82728; 82746; 83540; 83550; 83970; 84425; 85027; 93005

== ENCOUNTER → 2018-12-31 | Outpatient (CLI) | payer MEDICAID, SELFPAY ==
[2018-10-30 14:44] VITALS: BMI 74.4
== END | disposition home or self-care (01) ==
LOC: SL 20:16
PROVIDERS: Family Provider Internal Medicine; PCP Internal Medicine; Referring Provider Internal Medicine Critical Care Medicine; Visit Provider Internal Medicine Critical Care Medicine
DX: G47.33 Obstructive sleep apnea (adult) (pediatric) (principal); E66.01 Morbid (severe) obesity due to excess calories
CPT/HCPCS: 95811

== ENCOUNTER → 2019-09-03 10:11 | Outpatient (CLI) | payer MEDICAID, SELFPAY ==
[2019-09-03 09:31] VITALS: BMI 75.5
[2019-09-03 12:18] LABS: Absolute Lymphocyte Count 2.54 X10^3/uL (0.83-4.51); Absolute Neutrophil Count 4.1 X10^3/uL (2.0-7.7); Basophil# 0.02 X10^3/uL; Basophil% 0.3 % (0-1); Eosinophil# 0.06 X10^3/uL; Eosinophils% 0.8 % (0-5); Hematocrit 39.8 % (37-47); Hemoglobin 12.7 g/dL (12.0-15.0); Lymphocyte # 2.54 X10^3/ul (4.0); Lymphocyte % 35.5 % (19-41); Mean Corp Hgb Conc 31.9 g/dL (32-36); Mean Corpuscular Hgb 28.5 pg (27.0-32.0); Mean Corpuscular Volume 89.4 fL (81-99); Mean Platelet Vol. 10.2 fl (6.2-12.0); Monocyte# 0.43 X10^3/uL; NRBC Flagged by Analyzer 0 % (0-5); Neutrophil # 4.08 X10^3/uL (2.7-7.7); Platelet Count 269 K/mm3 (150-450); RBC Distribution Width CV 13.4 % (11.6-14.6); RBC Distribution Width SD 43.6 fl (35.1-43.9); Red Blood Count 4.45 M/mm3 (4.2-5.4); White Blood Count 7.2 K/mm3 (4.4-11.0)
[2019-09-03 12:42] LABS: ALB/GLOB Ratio 0.7 RATIO (0.9-2.4); AST(SGOT) 15 U/L (15-37); Alanine Aminotransfer ALT/SGPT 20 U/L (13-56); Albumin, Serum 3.5 g/dL (3.2-5.0); Alkaline Phosphatase 87 U/L (45-117); Anion Gap 6 (5-15); BUN 21 mg/dL (7-18); BUN/Creat Ratio 29.7 RATIO (10-20); Calcium,Total 8.7 mg/dL (8.5-10.1); Chloride 106 mmol/L (98-107); Cholesterol 226 mg/dL (200); Creatinine, Serum 0.71 mg/dL (0.55-1.02); EST Glomerular Filtration Rate 98 mL/min (>60); Est Glom Filt Rate - Afr Amer 119 mL/min (>60); Glucose 87 mg/dL (74-106); High Density Lipoprotein 66 mg/dL; Potassium 4.6 mmol/L (3.5-5.1); Protein, Total 8.5 g/dL (6.4-8.2); Sodium Level 137 mmol/L (136-145); Triglycerides 86 mg/dL; Very Low Density Lipoprotein 17 mg/dL (5-40)
== END ==
PROVIDERS: PCP Internal Medicine; Referring Provider Internal Medicine; Visit Provider Internal Medicine
DX: Z00.00 Encounter for general adult medical examination without abnormal findings (principal)
CPT/HCPCS: 36415; 80053; 80061; 85025

== ENCOUNTER 2019-12-29 22:12 | Emergency (ER) | payer MEDICAID, SELFPAY ==
[2019-09-03 09:31] VITALS: BMI 75.5
[2019-12-29 22:13] VITALS: BP 135/88; PULSE 93; RESP 16; TEMP 36.6; O2SAT 95; BMI 73.1
--- NOTE | 2019-12-29 22:30 | RAD_ITS ---
STUDY: X-RAY CHEST REASON FOR EXAM: Female, 39 years old. Shortness of breath. TECHNIQUE: Single frontal view of the chest. COMPARISON: October 02 and and December 05, 2018 FINDINGS: There is no new focal consolidation. Normal size heart. Normal mediastinum and francy. Normal visualized pulmonary arteries. Normal visualized aortic arch and descending thoracic aorta. Normal visualized thoracic spine. Normal visualized ribs, clavicles, and shoulders. There is no demonstrated abnormality of the visualized soft tissue structures of the upper abdomen. RAD/Chest 1 View (Portable) IMPRESSION: No acute cardiopulmonary process. Electronically Signed: Bertha Nguyễn MD at 23:20 EDT Tel , Service support ,
--- NOTE | 2019-12-29 22:35 | ED.VISSUMM ---
- ER Visit Summary Date of Service: 12/29/19 Chief Complaint: [Fever, cough] History of Present Illness: The patient is a 39 F [presents to the emergency department complaint of fever and cough that started yesterday. Patient states that she was at a 5 days ago where 1 of her aunts was known to have COVID-19. Patient denies any chest pain. Today she felt a little bit short of breath and just generally weak. She complained of some body aches. She has history of GERD and history of enlarged thyroid. She does not smoke.] Physical Examination: [HEENT-PERRLA, EOMI. Cranial nerves II through XII grossly intact. TMs clear. Mucous membranes moist. No adenopathy. Cardiovascular-regular rate and rhythm without murmur or ectopy Lungs-clear to auscultation, chest wall stable without crepitus or subcu emphysema Abdomen-normoactive bowel sounds, soft, nontender, no rebound or rigidity, no peritoneal signs. Extremities-intact ?4, normal range of motion, normal pulses, atraumatic] Test Results: [Chest x-ray was normal] Emergency Department Course and Treatment: [] Treatment Plan: [Patient will have a COVID-19 test performed. Patient advised self quarantine for the next 14 days.] Disposition: [Discharged home in stable condition] Impression: [Viral URI] This note was generated with Dissolve dictation software. It may contain incorrect words, spelling, and punctuation that were not noted in review of the chart prior to signing ED Disposition - Plan for ED Patient: Referrals: Shayna Quigley MD [Primary Care Provider] -
--- NOTE | 2019-12-29 23:34 | ED.DEP ---
ED Disposition - Plan for ED Patient: Instructions: ED Upper Resp Infec No Abx Tx Referrals: Shayna Quigley MD [Primary Care Provider] - 5-7 Days
--- NOTE | 2019-12-30 01:52 | ED.RN ---
DR ZHENG MADE AWARE PT TESTED POSITIVE FOR COVID 19.
== END 2019-12-29 23:45 | disposition home or self-care (01) ==
LOC: ED 22:37
PROVIDERS: Emergency Provider Emergency Medicine; PCP Internal Medicine
DX: J06.9 Acute upper respiratory infection, unspecified (principal)
CPT/HCPCS: 71045; 87635; 99282; G2023; U0003

== ENCOUNTER → 2020-07-23 16:43 | Outpatient (CLI) | payer MEDICAID, SELFPAY ==
[2020-06-26 09:25] VITALS: BMI 83.0
--- NOTE | 2020-07-23 16:45 | RAD_ITS ---
STUDY: X-RAY - LEFT KNEE REASON FOR EXAM: Female, 40 years old. knee pain for many years TECHNIQUE: 3 view(s) of the knee. COMPARISON: None. FINDINGS: There is extreme obesity. No fractures or dislocations. 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 Moderate osteoarthritis of the lateral tibiofemoral compartment. Severe osteoarthritis of the patellofemoral joint. Lateral subluxation of the tibia relative to the femur. Normal proximal tibiofibular joint. RAD/Knee 3 Views IMPRESSION: No acute fracture or dislocation. Severe multicompartment degenerative disease probably related to marked obesity. Electronically Signed: Frederic Tapia MD at 23:28 EST , Service support ,
--- NOTE | 2020-07-23 16:47 | RAD_ITS ---
STUDY: X-RAY - RIGHT KNEE REASON FOR EXAM: Female, 40 years old. knee pain for many years TECHNIQUE: 3 view(s) of the knee. COMPARISON: None. FINDINGS: There is extreme obesity. No fractures or dislocations. Moderate osteoarthritis of the medial tibiofemoral compartment. Moderate osteoarthritis of the lateral tibiofemoral compartment. Severe osteoarthritis of the patellofemoral joint. Lateral subluxation of the tibia relative to the femur. Normal proximal tibiofibular joint. RAD/Knee 3 Views IMPRESSION: No acute fracture or dislocation. Moderate multicompartment degenerative disease probably related to marked obesity. Electronically Signed: Frederic Tapia MD at 23:30 EST , Service support ,
== END ==
PROVIDERS: PCP Internal Medicine; Referring Provider Internal Medicine; Visit Provider Internal Medicine
DX: M25.561 Pain in right knee (principal); M25.562 Pain in left knee
CPT/HCPCS: 73562

== ENCOUNTER → 2020-08-28 13:02 | Outpatient (CLI) | payer MEDICAID, SELFPAY ==
[2020-08-06 13:07] VITALS: BMI 81.3
[2020-08-28 15:01] LABS: Absolute Lymphocyte Count 2.88 X10^3/uL (0.83-4.51); Absolute Neutrophil Count 4.8 X10^3/uL (2.0-7.7); Basophil# 0.03 X10^3/uL; Basophil% 0.4 % (0-1); Eosinophil# 0.04 X10^3/uL; Eosinophils% 0.5 % (0-5); Hematocrit 39.8 % (37-47); Hemoglobin 12.5 g/dL (12.0-15.0); Lymphocyte # 2.88 X10^3/ul (4.0); Lymphocyte % 34.7 % (19-41); Mean Corp Hgb Conc 31.4 g/dL (32-36); Mean Corpuscular Hgb 28.2 pg (27.0-32.0); Mean Corpuscular Volume 89.8 fL (81-99); NRBC Flagged by Analyzer 0 % (0-5); Neutrophil # 4.83 X10^3/uL (2.7-7.7); Neutrophil % 58.2 % (47-70); Platelet Count 286 K/mm3 (150-450); RBC Distribution Width CV 14.2 % (11.6-14.6); RBC Distribution Width SD 46.9 fl (35.1-43.9); Red Blood Count 4.43 M/mm3 (4.2-5.4); White Blood Count 8.3 K/mm3 (4.4-11.0)
[2020-08-28 15:18] LABS: Vitamin B12 573 pg/mL (211-911); Vitamin D,25 Hydroxy 13.4 ng/mL
[2020-08-28 15:22] LABS: ALB/GLOB Ratio 0.7 RATIO (0.9-2.4); AST(SGOT) 11 U/L (15-37); Alanine Aminotransfer ALT/SGPT 21 U/L (13-56); Albumin, Serum 3.2 g/dL (3.2-5.0); Alkaline Phosphatase 93 U/L (45-117); Anion Gap 4 (5-15); BUN 14 mg/dL (7-18); BUN/Creat Ratio 15.9 RATIO (10-20); Calcium,Total 8.8 mg/dL (8.5-10.1); Chloride 106 mmol/L (98-107); Cholesterol 221 mg/dL (200); Creatinine, Serum 0.88 mg/dL (0.55-1.02); EST Glomerular Filtration Rate 76 mL/min (>60); Est Glom Filt Rate - Afr Amer 92 mL/min (>60); Globulin 4.7 g/dL (2.2-4.2); Glucose 80 mg/dL (74-106); High Density Lipoprotein 75 mg/dL; Iron 61 ug/dL (50-170); Iron Binding Capacity,Total 252 ug/dL (250-450); PERCENT IRON SATURATION 24.2 % (15.0-55.0); Protein, Total 7.9 g/dL (6.4-8.2); Sodium Level 138 mmol/L (136-145); Thyroid Stim Hormone (TSH) 1.39 uIU/mL (0.358-3.74); Triglycerides 85 mg/dL; Very Low Density Lipoprotein 17 mg/dL (5-40)
[2020-08-28 15:50] LABS: Amphetamine Urine VISTA NEGATIVE (<1000 ng/mL); Barbiturate Urine VISTA NEGATIVE (< 200 ng/mL); Benzodiazepine Urine VISTA NEGATIVE (< 200 ng/mL); Cocaine Urine VISTA NEGATIVE (< 300 ng/mL); Ecstacy Urine VISTA NEGATIVE (< 500 ng/mL); Methadone Urine VISTA NEGATIVE (< 300 ng/mL); PCP Urine VISTA NEGATIVE (< 25 ng/mL); THC Urine VISTA NEGATIVE (< 50 ng/mL); Vista UDS pH Range 6
[2020-08-28 16:08] LABS: COTININE Drug Screen Negative (<200 ng/mL)
[2020-08-28 16:22] LABS: Hemoglobin A1c 5.6 % (3.8-5.6)
[2020-08-31 20:33] LABS: H. Pylori Antibody (IgG) 0.39 (0.00-0.79)
== END ==
PROVIDERS: PCP Internal Medicine
DX: E66.01 Morbid (severe) obesity due to excess calories (principal)
CPT/HCPCS: 36415; 80053; 80061; 80307; 82306; 82607; 83036; 83540; 83550; 84443; 85025; 86677

== ENCOUNTER → 2021-03-29 10:59 | Outpatient (CLI) | payer MEDICAID, SELFPAY | PROVIDERS: PCP Internal Medicine | DX: E66.01 Morbid (severe) obesity due to excess calories (principal) | CPT/HCPCS: 87635; C9803; U0005; U0003 ==

== ENCOUNTER 2021-07-13 16:26 | Emergency (ER) | payer MEDICAID, SELFPAY ==
[2021-07-13 16:26] VITALS: PULSE 95; RESP 18; TEMP 36.6; O2SAT 98; BMI 66.2
--- NOTE | 2021-07-13 17:11 | US_ITS ---
STUDY: ABDOMINAL ULTRASOUND - RIGHT UPPER QUADRANT REASON FOR VISIT: Female, 41 years old. ABDOMEN PAIN RUQ pain TECHNIQUE: Ultrasound evaluation of the right upper quadrant was performed with real-time and static payton-scale imaging. TECHNICAL QUALITY: Adequate. COMPARISON: None. FINDINGS: Liver: The liver has a size in centimeters of 20. There is normal echogenicity of the liver. The bile ducts are dilated. There is hepatic color flow. The direction of portal flow is hepatopetal. There is no demonstrated mass lesion. Gallbladder: There is a distended gallbladder. The gallbladder wall measures 3 mm. There is a positive sonographic Falcon''s sign. There is no pericholecystic fluid. There are multiple echogenic structures within the gallbladder, consistent with multiple gallstones. Common Bile Duct (C.B.D.): The common bile duct measures ( in mm): 7 Pancreas: Normal size of the head, body of the pancreas. There is normal echogenicity of the pancreas. There is no demonstrated pancreatic mass or cyst. Right Kidney: Normal size of the right kidney. The right kidney measures 13.3 cm. . Normal renal cortex. There is no demonstrated renal mass or cyst. There is no right hydronephrosis. Aorta: It is not visualized. There is too much overlying bowel gas. . US/Gallbladder IMPRESSION: There is intrahepatic ductal dilation. There is a positive sonographic Falcon''s sign. There are multiple echogenic structures within the gallbladder, consistent with multiple gallstones. Electronically Signed: Miguel Cope MD at 19:11 EST , Service support ,
--- NOTE | 2021-07-13 17:24 | EX.ED.DYSGE1 ---
HPI History of Present Illness Chief Complaint: Abd Pain Informant: patient Onset/Context/Timing Onset: Today Context: Sudden Onset Current Severity: Moderate Maximum Severity: Severe Narrative Narrative: Patient presents with epigastric right upper quadrant pain that started around 2 PM this afternoon. Patient states that she ate a salad and then developed pain. She does report nausea and vomiting. No fever or chills. [facility] Medical History Asthma Back problem Bilateral knee pain Gallstones History of abnormal cervical Pap smear Knee pain Multiple thyroid nodules Preventative health care Shoulder pain Home Medications ascorbate calcium (vitamin C) 500 mg tablet 500 mg PO DAILY 08/06/20 [History Last Taken Unknown] ascorbic acid 100 mg-elderberry fruit 50 mg chewable tablet tab PO 08/06/20 [History Last Taken Unknown] naproxen sodium 220 mg capsule 220 mg PO BID PRN 08/06/20 [History Last Taken Unknown] apple cider vinegar 300 mg tablet mg PO 11/10/20 [History Last Taken Unknown] Vitamin D (with calcium) 07/13/21 [History Last Taken Unknown] biotin 07/13/21 [History Last Taken Unknown] hydrocodone-acetaminophen 1 tab PO Q6H PRN 3 Days #10 tab 07/13/21 [Rx Last Taken Unknown] ondansetron 4 mg PO Q8H PRN #10 tab 07/13/21 [Rx Last Taken Unknown] Allergy/AdvReac Type Severity Reaction Status Date / Time No Known Allergies Allergy Verified 07/13/21 16:45 Family History Mother Myocardial infarction Hypertension Heart disease Grandmother Hypertension Cancer lung Surgical History Bariatric surgery status History of esophagogastroduodenoscopy (EGD) Social History Smoking Status: Never smoker alcohol intake: never substance use type: does not use caffeine: Yes what type of physical activity do you participate in: none seatbelt use: always do you feel safe at home: Yes 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 ROS ROS ED Constitutional Constitutional ED: Denies chills or fever(s) Eyes Eyes: Denies change in vision ENT ENT ED: Denies sore throat Cardiovascular Cardiovascular: Denies chest pain Respiratory/Chest Respiratory/Chest: Denies cough or dyspnea Gastrointestinal Gastrointestinal: Reports abdominal pain, nausea and vomiting; Denies diarrhea Genitourinary Genitourinary ED: Denies dysuria Musculoskeletal Musculoskeletal: Reports back pain Integumentary Denies rash Neurologic Neurologic: Denies headache(s) or weakness Allergic/Immunologic Allergic/Immunologic ED: Denies urticaria EXAM Physical Exam Const Vital Signs: 07/13/21 16:26 07/13/21 20:48 Temperature 97.8 F Temperature Source Temporal Pulse Rate 95 61 Respiratory Rate 18 18 Blood Pressure 106/66 Blood Pressure Mean 79 Pulse Ox 98 95 Oxygen Delivery Method Room Air Room Air Positive well nourished and well developed General Appearance ED: well developed HEENT Reports moist mucous membranes Eyes PERRL and EOMs intact bilaterally Neck supple Chest Wall inspection of chest normal and palpation of chest normal Resp normal respiratory effort and clear to auscultation bilaterally Cardio regular rate and regular rhythm GI Palpation: soft and tender epigastric and RUQ Extremity normal to inspection Neuro oriented x3 and no sensory deficits noted Sensorium / Orientation: alert Motor Exam: strength 5/5 throughout Psych mental status grossly normal Skin no rashes or lesions noted MDM MDM MDM Narrative Medical decision making narrative: Patient given Dilaudid and Zofran for pain. Lab work and right upper quadrant ultrasound ordered. Lab Data Attestation: I reviewed the patient's lab results. Labs: Laboratory Results - last 24 hr 07/13/21 07/13/21 07/13/21 16:43 16:43 16:43 WBC 7.9 RBC 4.37 Hgb 12.6 Hct 38.5 MCV 88.1 MCH 28.8 MCHC 32.7 RDW Std Deviation 49.0 H RDW Coeff of Ju 14.9 H Plt Count 283 MPV 10.9 Immature Gran % (Auto) 0.300 Neut % (Auto) 46.8 L Lymph % (Auto) 44.6 H [place] % (Auto) 7.0 Eos % (Auto) 0.9 Baso % (Auto) 0.4 Absolute Neuts (auto) 3.7 Absolute Lymphs (auto) 3.51 Nucleated RBC % 0 Sodium 141 Potassium 3.5 Chloride 106 Carbon Dioxide 25.0 Anion Gap 10 BUN 10 Creatinine 0.65 Estim Creat Clear Calc 103.53 Est GFR (MDRD) Af Amer 129 Est GFR (MDRD) Non-Af 107 BUN/Creatinine Ratio 15.4 Glucose 97 Calcium 9.2 Total Bilirubin 0.30 Direct Bilirubin 0.10 AST 12 L ALT 12 L Alkaline Phosphatase 67 Total Protein 8.0 Albumin 3.1 L Globulin 4.9 H Lipase 38 L Serum , Qual NEGATIVE Radiography Diagnostic Testing: Clinical Impression(s) from Imaging Studies Gallbladder Ultrasound 07/13/21 17:11 IMPRESSION: There is intrahepatic ductal dilation. There is a positive sonographic Falcon''s sign. There are multiple echogenic structures within the gallbladder, consistent with multiple gallstones. Electronically Signed: Miguel Cope MD at 19:11 EST , Service support , Abdomen/Pelvis CT 07/13/21 19:41 IMPRESSION: Negative CT of the abdomen and pelvis with contrast. Note that ultrasound is more sensitive for gallbladder pathology and intrahepatic biliary ductal dilation. Electronically Signed: French Santiago DO at 22:59 EST Tel , Service support , Treatment and Re-Evaluation Comments:: White blood cell count normal. LFTs unremarkable. test negative. Ultrasound reveals a distended gallbladder. The gallbladder wall measures 3 mm. They do, there is a positive sonographic Falcon sign but no pericholecystic fluid. Multiple echogenic structures in the gallbladder consistent with gallstones. Because the patient had fairly recent gastric sleeve surgery CT scan with p.o. and IV contrast is also obtained. CT scan is unremarkable. On repeat evaluation patient is sleeping comfortably. She easily awakens. Test results are discussed with her. On exam at this time she does not have a Falcon sign. I did recommend she follow-up with surgery as an outpatient for elective cholecystectomy. Return instructions provided if she is to worsen. She will be given prescription for Zofran and [place] at home. Discharge Plan Triage Chief Complaint: Abd Pain ED Provider: Elis Read Dx/Rx/DC Orders Clinical Impression: Gallstones Instructions: ED Gallstones with Biliary Colic Prescriptions: New hydrocodone-acetaminophen 5-325 mg tablet 1 tab PO Q6H PRN (Reason: pain) 3 Days Qty: 10 RF: 0 ondansetron 4 mg tablet,disintegrating 4 mg PO Q8H PRN (Reason: nausea and vomiting) Qty: 10 RF: 0 No Action apple cider vinegar 300 mg tablet PO RF: 0 naproxen sodium [Aleve] 220 mg capsule 220 mg PO BID PRNRF: 0 ascorbic acid-elderberry fruit [Airborne (elderberry)] 100-50 mg tablet,chewable PO RF: 0 ascorbate calcium (vitamin C) 500 mg tablet 500 mg PO DAILY RF: 0 Vitamin D (with calcium) RF: 0 biotin RF: 0 Primary Care Provider: Shayna Quigley Referrals: Shayna Quigley MD [Primary Care Provider] - Jazmin Mahajan MD [STAFF PHYSICIAN] - As soon as possible Disposition Disposition: Home, Self Care
[2021-07-13 17:51] LABS: Absolute Lymphocyte Count 3.51 X10^3/uL (0.83-4.51); Absolute Neutrophil Count 3.7 X10^3/uL (2.0-7.7); Basophil# 0.03 X10^3/uL; Basophil% 0.4 % (0-1); Eosinophil# 0.07 X10^3/uL; Eosinophils% 0.9 % (0-5); Hematocrit 38.5 % (37-47); Hemoglobin 12.6 g/dL (12.0-15.0); Lymphocyte # 3.51 X10^3/ul (0.83-4.51); Lymphocyte % 44.6 % (19-41); Mean Corp Hgb Conc 32.7 g/dL (32-36); Mean Corpuscular Hgb 28.8 pg (27.0-32.0); Mean Corpuscular Volume 88.1 fL (81-99); Mean Platelet Vol. 10.9 fl (6.2-12.0); Monocyte# 0.55 X10^3/uL; NRBC Flagged by Analyzer 0 % (0-5); Neutrophil # 3.69 X10^3/uL (2.7-7.7); Neutrophil % 46.8 % (47-70); Platelet Count 283 K/mm3 (150-450); RBC Distribution Width CV 14.9 % (11.6-14.6); Red Blood Count 4.37 M/mm3 (4.2-5.4); White Blood Count 7.9 K/mm3 (4.4-11.0)
[2021-07-13 17:59] LABS: Internal QC Validated? YES +Cl - CLEAR BKGD; Pregnancy, Serum, hCG Quali. NEGATIVE Negative
[2021-07-13] MEDS: Ondansetron 4 MG/2 ML Vial IV (18:01)
[2021-07-13] MEDS: HYDROmorphone 1 MG/ML Syringe 0.5 MG IV (18:01)
[2021-07-13 18:06] LABS: AST(SGOT) 12 U/L (15-37); Alanine Aminotransfer ALT/SGPT 12 U/L (13-56); Albumin, Serum 3.1 g/dL (3.2-5.0); Alkaline Phosphatase 67 U/L (45-117); Anion Gap 10 (5-15); BUN 10 mg/dL (7-18); BUN/Creat Ratio 15.4 RATIO (10-20); Calcium,Total 9.2 mg/dL (8.5-10.1); Chloride 106 mmol/L (98-107); Creatinine, Serum 0.65 mg/dL (0.55-1.02); EST Glomerular Filtration Rate 107 mL/min (>60); Est Glom Filt Rate - Afr Amer 129 mL/min (>60); Estimated Creatinine Clearance 103.53 ml/min; Globulin 4.9 g/dL (2.2-4.2); Glucose 97 mg/dL (74-106); Lipase 38 U/L (73-393); Potassium 3.5 mmol/L (3.5-5.1); Sodium Level 141 mmol/L (136-145)
--- NOTE | 2021-07-13 19:41 | CT_ITS ---
INDICATION: abd pain -- IV PO Contrast EXAMINATION: CT ABDOMEN AND PELVIS WITH CONTRAST - CT Abdomen And Pelvis W/ Contrast Injection TECHNIQUE: Helically acquired images were obtained of the abdomen and pelvis following IV contrast. A radiation dose optimization technique was used for this scan. IV Contrast dosage and agent: 100 mL of ISOVUE-300 Oral contrast: GASTROGRAFIN COMPARISON: Gallbladder ultrasound 07/13/2021 FINDINGS: LOWER CHEST: Mild bibasilar atelectasis. No cardiomegaly or pericardial effusion. LIVER: Homogeneous. No focal mass. GALLBLADDER AND BILIARY TREE: No radiopaque gallstones visible. No gallbladder distension or wall edema. No intra- or extrahepatic biliary ductal dilation. Note that ultrasound is more sensitive for intrahepatic biliary ductal dilation. PANCREAS: No focal cystic or solid mass. SPLEEN: Normal size without focal cystic or solid mass. ADRENAL GLANDS: No nodules. KIDNEYS AND URETERS: Normal renal size and position. No hydronephrosis. PERITONEUM: No ascites or free air. No other fluid collection. BOWEL: No evidence of acute appendicitis. No stomach or bowel distension. No focal inflammatory change. LYMPH NODES: No enlarged mesenteric or retroperitoneal lymph nodes. VESSELS: Aorta is non-dilated. URINARY BLADDER: Unremarkable. REPRODUCTIVE ORGANS: No pelvic masses. ABDOMINAL WALL: No discrete abdominal or pelvic wall hernia. BONES: No lytic or blastic abnormality. Advanced L5-S1 degenerative disc and endplate changes. Prominent anterior osteophytes lower thoracic spine. CT/Abdomen/Pelvis WITH Contrast IMPRESSION: Negative CT of the abdomen and pelvis with contrast. Note that ultrasound is more sensitive for gallbladder pathology and intrahepatic biliary ductal dilation. Electronically Signed: French Santiago DO at 22:59 EST Tel , Service support ,
[2021-07-13] MEDS: HYDROmorphone 0.5 MG/0.5 ML SYRINGE IV (20:14)
[2021-07-13 20:48] VITALS: BP 106/66; PULSE 61; RESP 18; O2SAT 95
[2021-07-13 23:27] VITALS: PULSE 88
== END 2021-07-13 23:34 | disposition home or self-care (01) ==
PROVIDERS: Emergency Provider Emergency Medicine; PCP Internal Medicine; Visit Provider Emergency Medicine
DX: K80.20 Calculus of gallbladder without cholecystitis without obstruction (principal); Z98.84 Bariatric surgery status
CPT/HCPCS: 74177; 76705; 80048; 80076; 83690; 84703; 85025; 96374; 96375; 96376; 99283; Q9967; A4216; J2405

== ENCOUNTER 2022-02-21 15:13 | Emergency (ER) | payer MEDICAID, SELFPAY ==
[2022-02-21 15:13] VITALS: BP 134/85; PULSE 97; RESP 16; TEMP 38; O2SAT 98; BMI 59.7
--- NOTE | 2022-02-21 15:40 | EX.ED.DYSGE1 ---
HPI History of Present Illness Chief Complaint: Sore Throat Detail of Chief Complaint: Headache, sore throat, body aches Informant: patient Onset/Context/Timing Onset: Yesterday Context: Gradual Onset Current Severity: Mild Maximum Severity: Moderate Narrative Narrative: Patient presents complaining of feeling cold and sleepy. She states she developed a sore throat along with headache and body aches yesterday. She had not noticed a fever at home. Temperature was reported 100.4 in triage. She denies cough, nausea, vomiting. No diarrhea. She denies any known exposure to COVID. [facility] Medical History Asthma Back problem Bilateral knee pain Gallstones History of abnormal cervical Pap smear Knee pain Multiple thyroid nodules Preventative health care Shoulder pain Home Medications ascorbate calcium (vitamin C) 500 mg tablet 500 mg PO DAILY 08/06/20 [History Last Taken Unknown] ascorbic acid 100 mg-elderberry fruit 50 mg chewable tablet (Airborne (elderberry)) tab PO 08/06/20 [History Last Taken Unknown] naproxen sodium 220 mg capsule (Aleve) 220 mg PO BID PRN 08/06/20 [History Last Taken Unknown] apple cider vinegar 300 mg tablet mg PO 11/10/20 [History Last Taken Unknown] Vitamin D (with calcium) 07/13/21 [History Last Taken Unknown] biotin 07/13/21 [History Last Taken Unknown] hydrocodone-acetaminophen 5-325mg 5mg-325mg 1 tab PO Q6H PRN pain 3 days #10 tabs 07/13/21 [Rx Last Taken Unknown] ondansetron 4 mg disintegrating tablet 4 mg PO Q8H PRN nausea and vomiting #10 tabs 07/13/21 [Rx Last Taken Unknown] Allergy/AdvReac Type Severity Reaction Status Date / Time No Known Allergies Allergy Verified 02/21/22 15:15 Family History Mother Myocardial infarction Hypertension Heart disease Grandmother Hypertension Cancer lung Surgical History Bariatric surgery status History of esophagogastroduodenoscopy (EGD) Social History Smoking Status: Never smoker alcohol intake: never substance use type: does not use caffeine: Yes what type of physical activity do you participate in: none seatbelt use: always do you feel safe at home: Yes 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 ROS ROS ED Constitutional Constitutional ED: Reports chills; Denies fever(s) Eyes Eyes: Denies change in vision or discharge from eye(s) ENT ENT ED: Reports sore throat; Denies discharge from eye(s) or rhinorrhea Cardiovascular Cardiovascular: Denies chest pain or palpitations Respiratory/Chest Respiratory/Chest: Denies cough or dyspnea Gastrointestinal Gastrointestinal: Denies abdominal pain, diarrhea, nausea or vomiting Genitourinary Genitourinary ED: Denies difficulty urinating or dysuria Musculoskeletal Musculoskeletal: Reports myalgias; Denies back pain or extremity pain Integumentary Denies Abrasions or rash Neurologic Neurologic: Denies headache(s) or weakness Psychiatric Psychiatric: Denies anxiety or depression Allergic/Immunologic Allergic/Immunologic ED: Denies lip swelling or urticaria EXAM Physical Exam Const Vital Signs: 02/21/22 15:13 Temperature 100.4 F H Temperature Source Temporal Pulse Rate 97 Respiratory Rate 16 Blood Pressure 134/85 H Blood Pressure Mean 101 Pulse Ox 98 Oxygen Delivery Method Room Air Positive well nourished and well developed General Appearance ED: well developed HEENT Reports normocephalic and head/scalp atraumatic HEENT Narrative: Mild posterior pharyngeal drainage. Mild cobblestoning. Uvula midline. Patient speaks with strong voice and is tolerating secretions well. Eyes PERRL and EOMs intact bilaterally Neck supple Chest Wall inspection of chest normal and palpation of chest normal Resp normal respiratory effort and clear to auscultation bilaterally Cardio regular rate and regular rhythm GI normal to inspection, nondistended, normoactive bowel sounds Palpation: soft Extremity normal to inspection Neuro oriented x3 and no sensory deficits noted Sensorium / Orientation: alert Motor Exam: strength 5/5 throughout Psych mental status grossly normal Skin no rashes or lesions noted MDM MDM MDM Narrative Medical decision making narrative: Patient was given Toradol and a small dose of Benadryl along with IV fluids. Lab work obtained along with COVID/influenza test and rapid strep test. Lab Data Attestation: I reviewed the patient's lab results. Labs: Laboratory Results - last 24 hr 02/21/22 02/21/22 15:55 15:55 WBC 8.0 RBC 3.89 L Hgb 11.2 L Hct 34.6 L MCV 88.9 MCH 28.8 MCHC 32.4 RDW Std Deviation 45.3 H RDW Coeff of Ju 13.9 Plt Count 232 MPV 9.8 Immature Gran % (Auto) 0.500 Neut % (Auto) 68.4 Lymph % (Auto) 21.8 [place] % (Auto) 8.7 Eos % (Auto) 0.4 Baso % (Auto) 0.2 Absolute Neuts (auto) 5.5 Absolute Lymphs (auto) 1.75 Nucleated RBC % 0 Sodium 138 Potassium 3.9 Chloride 109 H Carbon Dioxide 27.0 Anion Gap 2 L BUN 12 Creatinine 0.73 Estim Creat Clear Calc 91.26 Est GFR (MDRD) Af Amer 113 Est GFR (MDRD) Non-Af 93 BUN/Creatinine Ratio 16.4 Glucose 94 Calcium 8.4 L Treatment and Re-Evaluation Narrative: COVID and influenza test are negative. Rapid strep test is negative. Repeat evaluation patient sleeping comfortably. She easily awakens. She does improve report improvement in her symptoms. She was advised she is a viral syndrome and will require supportive care. Return instructions provided. Discharge Plan Triage Chief Complaint: Sore Throat ED Provider: Elis Read Dx/Rx/DC Orders Clinical Impression: Viral syndrome Instructions: ED Viral Syndrome (Adult) Prescriptions: No Action apple cider vinegar 300 mg tablet PO naproxen sodium [Aleve] 220 mg capsule 220 mg PO BID PRN ascorbic acid-elderberry fruit [Airborne (elderberry)] 100-50 mg tablet,chewable PO ascorbate calcium (vitamin C) 500 mg tablet 500 mg PO DAILY Vitamin D (with calcium) biotin hydrocodone-acetaminophen 5-325 mg tablet 1 tab PO Q6H PRN (Reason: pain) 3 Days Qty: 10 0RF ondansetron 4 mg tablet,disintegrating 4 mg PO Q8H PRN (Reason: nausea and vomiting) Qty: 10 0RF Primary Care Provider: Shayna Quigley Referrals: Shayna Quigley MD [Primary Care Provider] - 1 Week if not improving Disposition Disposition: Home, Self Care
[2022-02-21 16:02] LABS: Absolute Lymphocyte Count 1.75 X10^3/uL (0.83-4.51); Absolute Neutrophil Count 5.5 X10^3/uL (2.0-7.7); Basophil# 0.02 X10^3/uL; Basophil% 0.2 % (0-1); Eosinophil# 0.03 X10^3/uL; Eosinophils% 0.4 % (0-5); Hematocrit 34.6 % (37-47); Hemoglobin 11.2 g/dL (12.0-15.0); Lymphocyte # 1.75 X10^3/ul (0.83-4.51); Lymphocyte % 21.8 % (19-41); Mean Corp Hgb Conc 32.4 g/dL (32-36); Mean Corpuscular Hgb 28.8 pg (27.0-32.0); Mean Corpuscular Volume 88.9 fL (81-99); Mean Platelet Vol. 9.8 fl (6.2-12.0); Monocyte% 8.7 % (0-10); NRBC Flagged by Analyzer 0 % (0-5); Neutrophil % 68.4 % (47-70); Platelet Count 232 K/mm3 (150-450); RBC Distribution Width CV 13.9 % (11.6-14.6); RBC Distribution Width SD 45.3 fl (35.1-43.9); Red Blood Count 3.89 M/mm3 (4.2-5.4)
[2022-02-21 16:12] LABS: Anion Gap 2 (5-15); BUN 12 mg/dL (7-18); BUN/Creat Ratio 16.4 RATIO (10-20); Calcium,Total 8.4 mg/dL (8.5-10.1); Chloride 109 mmol/L (98-107); Creatinine, Serum 0.73 mg/dL (0.55-1.02); EST Glomerular Filtration Rate 93 mL/min (>60); Est Glom Filt Rate - Afr Amer 113 mL/min (>60); Estimated Creatinine Clearance 91.26 ml/min; Glucose 94 mg/dL (74-106); Potassium 3.9 mmol/L (3.5-5.1); Sodium Level 138 mmol/L (136-145)
[2022-02-21] MEDS: Ketorolac 30 MG/ML Syringe IV (16:17)
[2022-02-21] MEDS: 0.9% Normal Saline 1,000 ML 1000 ML IV (16:17)
[2022-02-21] MEDS: DiphenhydrAMINE 50 MG/ML Syringe 12.5 MG IV (16:18)
[2022-02-21 17:23] VITALS: RESP 16
== END 2022-02-21 17:42 | disposition home or self-care (01) ==
PROVIDERS: Emergency Provider Emergency Medicine; PCP Internal Medicine; Visit Provider Emergency Medicine
DX: B34.9 Viral infection, unspecified (principal)
CPT/HCPCS: 80048; 85025; 87077; 87428; 87880; 96374; 96375; 99283; J7030

== ENCOUNTER 2022-03-23 19:11 | Emergency (ER) | payer MEDICAID, SELFPAY ==
[2022-03-23 19:12] VITALS: BP 124/80; PULSE 65; RESP 16; TEMP 36.6; O2SAT 97; BMI 61.9
--- NOTE | 2022-03-23 19:23 | RAD_ITS ---
STUDY: XR Shoulder Min 2 Views REASON FOR EXAM: Female, 42 years old. PAIN TECHNIQUE: XR Shoulder Min 2 Views RIGHT COMPARISON: None. FINDINGS: Normal glenohumeral articulation. Normal acromioclavicular joint. Normal acromion. Normal humeral head and visualized proximal humerus. The soft tissue structures are unremarkable. Normal visualized pulmonary apex. RAD/Shoulder min 2 Views IMPRESSION: There are no acute findings of the shoulder. Electronically Signed: Miguel Cope MD at 19:53 EDT ,
--- NOTE | 2022-03-23 20:31 | EX.ED.UPPERE ---
HPI History of Present Illness Chief Complaint: Upper Extremity Injury Narrative Narrative: 42-year-old female presenting with nontraumatic right shoulder pain. She states this started about 5 days ago. She complains of pain down the posterior aspect of right shoulder down to her elbow. There is no numbness. She is able to use it although there is pain. She states she tries to keep moving it because she does not want to get frozen. She has history of bariatric surgery and is not supposed to use NSAIDs but does use ibuprofen and states it does not help. Denies any neck pain. [facility] Medical History Asthma Back problem Bilateral knee pain Gallstones History of abnormal cervical Pap smear Knee pain Multiple thyroid nodules Preventative health care Shoulder pain Home Medications ascorbate calcium (vitamin C) 500 mg tablet 500 mg PO DAILY 08/06/20 [History Last Taken Unknown] ascorbic acid 100 mg-elderberry fruit 50 mg chewable tablet (Airborne (elderberry)) tab PO 08/06/20 [History Last Taken Unknown] apple cider vinegar 300 mg tablet mg PO 11/10/20 [History Last Taken Unknown] cyclobenzaprine 10 mg tablet 10 mg PO BID PRN muscle spasm #14 tabs 03/23/22 [Rx Last Taken Unknown] Allergy/AdvReac Type Severity Reaction Status Date / Time No Known Allergies Allergy Verified 03/23/22 19:16 Family History Mother Myocardial infarction Hypertension Heart disease Grandmother Hypertension Cancer lung Surgical History Bariatric surgery status History of esophagogastroduodenoscopy (EGD) Social History Smoking Status: Never smoker alcohol intake: never substance use type: does not use caffeine: Yes what type of physical activity do you participate in: none seatbelt use: always do you feel safe at home: Yes 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 ; Denies neck pain Integumentary Denies abscess or Abrasions Neurologic Neurologic: Denies headache(s) Psychiatric Psychiatric: Denies anxiety or depression EXAM Physical Exam Const Vital Signs: 03/23/22 19:12 Temperature 97.9 F Temperature Source Temporal Pulse Rate 65 Respiratory Rate 16 Blood Pressure 124/80 H Blood Pressure Mean 94 Pulse Ox 97 Oxygen Delivery Method Room Air Positive well nourished and obese General Appearance ED: NAD Nutritional Appearance: obese HEENT Reports moist mucous membranes Eyes PERRL and EOMs intact bilaterally Neck full ROM Chest Wall inspection of chest normal and palpation of chest normal Resp normal respiratory effort and clear to auscultation bilaterally Cardio regular rate and regular rhythm Back/Spine Back/Spine Narrative: Mild tenderness to palpation in the lateral aspect of the right trapezius. Cervical Spine: Negative for cervical spine tenderness Extremity Extremity Narrative: Tenderness to palpation of the right trapezius extending into the right posterior shoulder. Full range of motion of the right shoulder in flexion, extension, abduction, abduction, rotation. Neuro oriented x3, CN's II-XII intact bilaterally, moves all extremities, no focal motor deficits and no sensory deficits noted Sensorium / Orientation: alert Motor Exam: strength 5/5 throughout and muscle tone normal throughout Psych mental status grossly normal MDM MDM MDM Narrative Medical decision making narrative: Patient seen and evaluated on arrival. She has nontraumatic right shoulder pain in the posterior aspect of the right shoulder it radiates down to the elbow. There is no neck pain on examination. Patient is not supposed be taking NSAIDs but has been. She denies any abdominal pain. Patient had x-ray of the right shoulder which on my interpretation shows no acute fracture or subluxation. She has full range of motion. Patient will be started on cyclobenzaprine and counseled use Tylenol instead of ibuprofen. She should follow-up with her PCP and if continues to be a problem she can get a referral to orthopedics. Impression: 1 right shoulder pain Lab Data Attestation: I reviewed the patient's lab results. Radiography Diagnostic Testing: Clinical Impression(s) from Imaging Studies Shoulder X-Ray 03/23/22 19:23 IMPRESSION: There are no acute findings of the shoulder. Electronically Signed: Miguel Cope MD at 19:53 EDT , Discharge Plan Triage Chief Complaint: Upper Extremity Injury ED Provider: Go Ness Dx/Rx/DC Orders Instructions: ED Shoulder Sprain Prescriptions: New cyclobenzaprine 10 mg tablet 10 mg PO BID PRN (Reason: muscle spasm) Qty: 14 0RF No Action apple cider vinegar 300 mg tablet PO naproxen sodium [Aleve] 220 mg capsule 220 mg PO BID PRN ascorbic acid-elderberry fruit [Airborne (elderberry)] 100-50 mg tablet,chewable PO ascorbate calcium (vitamin C) 500 mg tablet 500 mg PO DAILY Vitamin D (with calcium) biotin hydrocodone-acetaminophen 5-325 mg tablet 1 tab PO Q6H PRN (Reason: pain) 3 Days Qty: 10 0RF ondansetron 4 mg tablet,disintegrating 4 mg PO Q8H PRN (Reason: nausea and vomiting) Qty: 10 0RF Primary Care Provider: Shayna Quigley Referrals: Shayna Quigley MD [Primary Care Provider] - Disposition Disposition: Home, Self Care
== END 2022-03-23 20:36 | disposition home or self-care (01) ==
PROVIDERS: Emergency Provider Student in an Organized Health Care Education/Training Program; PCP Internal Medicine; Visit Provider Student in an Organized Health Care Education/Training Program
DX: M25.511 Pain in right shoulder (principal); E66.9 Obesity, unspecified
CPT/HCPCS: 73030; 99282

== ENCOUNTER 2022-05-25 23:42 | Emergency (ER) | payer MEDICAID, SELFPAY ==
[2022-05-25 23:43] VITALS: BP 127/79; PULSE 66; RESP 15; TEMP 36.1; O2SAT 100; BMI 60.2
--- NOTE | 2022-05-26 00:08 | CT_ITS ---
EXAM: CT ABDOMEN AND PELVIS WITH INTRAVENOUS CONTRAST CLINICAL INDICATION: RUQ abd pain RUQ abd pain TECHNIQUE: Helically acquired images were obtained of the abdomen and pelvis with intravenous contrast. This CT exam was performed using one or more of the following dose reduction techniques: automated exposure control, adjustment of the mA and/or kV according to patient size, and/or use of iterative reconstruction technique. This report was created using [email or web address] report generation technology. CONTRAST: IV 100mL Isovue-370 RADIATION DOSE: CTDIvol = 35.73 mGy, DLP = 1878.67 mGy-cm COMPARISON: CT scan abdomen and pelvis 07/13/2021. Abdominal ultrasound 07/13/2021. FINDINGS: LOWER THORAX: There is a small hiatal hernia. There is mild atelectasis in the visualized left posterior lung base. No cardiomegaly. No significant pericardial effusion. ABDOMEN: LIVER: Unremarkable. Homogeneous. No focal mass. GALLBLADDER AND BILE DUCTS: There is mural thickening of the gallbladder. The gallbladder lumen is heterogeneous, consistent with noncalcified gallstones. No intra- or extrahepatic biliary ductal dilation. PANCREAS: Unremarkable. No focal cystic or solid mass. SPLEEN: Unremarkable. Normal size without focal cystic or solid mass. ADRENALS: Unremarkable. No nodules. KIDNEYS AND URETERS: Unremarkable. Normal renal size and position. No hydronephrosis. STOMACH AND BOWEL: There are postsurgical changes in the stomach consistent with a prior gastric sleeve procedure. No stomach or bowel distention. No focal inflammatory change. PELVIS: APPENDIX: The appendix is seen on axial images 93-95. There is no evidence for acute appendicitis. BLADDER: Unremarkable. REPRODUCTIVE: Unremarkable as visualized. No mass. ABDOMEN and PELVIS: INTRAPERITONEAL SPACE: Unremarkable. No ascites or other fluid collection. No free air. BONES/JOINTS: There are multilevel degenerative changes in the visualized spine. No suspicious lytic or blastic abnormality. SOFT TISSUES: There is an umbilical hernia contains fat. VASCULATURE: Unremarkable. Abdominal aorta is non-dilated. LYMPH NODES: Unremarkable. No enlarged lymph nodes. CT/Abdomen/Pelvis W IV Cont ONLY IMPRESSION: 1. Noncalcified gallstones in a thick-walled gallbladder. Findings are suspicious for cholecystitis. 2. Previous gastric sleeve procedure. Small hiatal hernia. 3. Small umbilical hernia contains fat, but no bowel. Electronically Signed: Esdras Reyes MD at 2:10 EST Reading Location ID and State: [facility] / [place] , Service support ,
--- NOTE | 2022-05-26 00:11 | EDS_ITS ---
HPI HPI - GI History of Present Illness Chief Complaint: Abd Pain Informant: patient Narrative Narrative: Patient is a 42-year-old female with history of gastric sleeve surgery as well as gallstones presenting with epigastric abdominal pain. She states it started yesterday after eating a couple bites of [employer]. She not has had multiple episodes of vomiting has not been able to keep much down. She continues to feel uncomfortable under my breast bone. She states the pain radiates down to her abdomen. She was able to keep down some noodles today but also threw up Chipotle and a protein cookie. She states her gastric sleeve surgery was at [facility]. She remembered today that she had been diagnosed with gallstones before and thought that might be causing her pain so she came to the ER. She not take anyt paula for pain prior to arrival. Denies any diarrhea. Denies any sick contacts. Has no other chest discomfort and no shortness of breath. Denies any black or blood in her vomit or her stool. No report of any fevers. No other complaints at this time. [facility] Medical History Asthma Back problem Bilateral knee pain Gallstones History of abnormal cervical Pap smear Knee pain Multiple thyroid nodules Preventative health care Shoulder pain Home Medications ascorbate calcium (vitamin C) 500 mg tablet 500 mg PO DAILY 08/06/20 [History Last Taken Unknown] ascorbic acid 100 mg-elderberry fruit 50 mg chewable tablet (Airborne (elderberry)) 1 tab PO DAILY PRN PRN immune 08/06/20 [History Last Taken Unknown] apple cider vinegar 300 mg tablet 300 mg PO DAILY 11/10/20 [History Last Taken Unknown] cyclobenzaprine 10 mg tablet 10 mg PO BID PRN muscle spasm #14 tabs 03/23/22 [Rx Last Taken Unknown] ondansetron 4 mg disintegrating tablet 4 mg PO Q6H PRN nausea and vomiting #20 tabs 05/26/22 [Rx Last Taken Unknown] oxycodone-acetaminophen 5 mg-325 mg tablet (Percocet) 1 tab PO Q6H PRN pain 3 days #12 tabs 05/26/22 [Rx Last Taken Unknown] pantoprazole 20 mg tablet,delayed release (Protonix) 20 mg PO DAILY #14 tabs 05/26/22 [Rx Last Taken Unknown] Allergy/AdvReac Type Severity Reaction Status Date / Time No Known Allergies Allergy Verified 05/25/22 23:46 Family History Mother Myocardial infarction Hypertension Heart disease Grandmother Hypertension Cancer lung Surgical History Bariatric surgery status History of esophagogastroduodenoscopy (EGD) Social History Smoking Status: Never smoker alcohol intake: never substance use type: does not use caffeine: Yes what type of physical activity do you participate in: none seatbelt use: always do you feel safe at home: Yes 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 ROS ROS ED Constitutional Constitutional ED: Denies chills or fever(s) ENT ENT ED: Denies sore throat Cardiovascular Cardiovascular: Reports chest pain Respiratory/Chest Respiratory/Chest: Denies cough or dyspnea Gastrointestinal Gastrointestinal: Reports abdominal pain, nausea and vomiting; Denies constipation, diarrhea or melena Genitourinary Genitourinary ED: Denies dysuria Musculoskeletal Musculoskeletal: Denies arthralgias or myalgias Neurologic Neurologic: Denies headache(s) or weakness Psychiatric Psychiatric: Denies anxiety Hematologic/Lymphatic Hematologic/Lymphatic: Denies easy bleeding or easy bruising EXAM Physical Exam Const Vital Signs: 05/25/22 23:43 05/26/22 02:07 Temperature 97.0 F L Temperature Source Temporal Pulse Rate 66 Respiratory Rate 15 17 Blood Pressure 127/79 H Blood Pressure Mean 95 Pulse Ox 100 Oxygen Delivery Method Room Air Positive well nourished and well developed General Appearance ED: well developed and NAD HEENT Reports moist mucous membranes Eyes PERRL and EOMs intact bilaterally Neck supple and no JVD Resp normal respiratory effort and clear to auscultation bilaterally Cardio regular rate, regular rhythm and no murmurs GI non-distended Auscultation: normoactive bowel sounds Palpation: soft and tender epigastric, RUQ and Falcon's sign; Negative for guarding or rigid Extremity full ROM General Extremety ED: Negative for edema General Extremity: Negative for edema Neuro moves all extremities Motor Exam: Negative for general weakness Psych mental status grossly normal and thought process normal Skin no wounds Rashes: no rashes MDM MDM MDM Narrative Medical decision making narrative: Patient evaluated for 2 days of nausea, vomiting and epigastric abdominal pain. On exam she does have tenderness in her right upper quadrant. She has known history of gallstones. Vital signs are normal. She does not have a leukocytosis nor an elevated bilirubin/transaminitis. Cardiac work-up including EKG and troponin is normal. I do not think is referred cardiac symptoms. Lipase is normal. Urinalysis is consistent with contamination. Ultrasound not available at this time and CT of abdomen pelvis shows a noncalcified gallstone in a thick-walled gallbladder concerning for cholecystitis. Patient does have tenderness in the right upper quadrant. Patient is given IV fluids, morphine, Zofran and Protonix in the ER. On repeat evaluation she is much more comfortable but continues have some mild tenderness in the right upper quadrant. Case discussed with surgery on-call, Dr. Silver, who agrees that a surgical evaluation is indicated however we do not have bariatric equipment amenable for treating patient here. Patient counseled that we are recommending transfer to an outside facility for definitive management of her gallbladder/cholecystitis. Patient states that because of social reasons (she has to take care of her 7-year-old son) she cannot be admitted tonight. Using shared decision making, patient will try to treat this conservatively with pain medicine and diet reyes fication with close outpatient follow-up. Patient is counseled that her symptoms might worsen and she might need to immediately return to the emergency room. Is given information for surgeons at [facility] and [facility] for outpatient follow-up as we do not have the bariatric capabilities at [facility] per her surgeon. Patient is given a prescription for Percocet, Zofran and Protonix for symptom control. Counseled on signs and symptoms requiring return to the emergency room such as continued nausea, upper quadrant pain and fever. Given that she does not have a leukocytosis or laboratory findings consistent with an obstructive process it is reasonable to let her try conservative treatment/outpatient follow-up. She is given a dose of Zosyn in the ER. Patient is counseled extensively on the importance of close outpatient follow-up as well as low threshold to return to the emergency room. Lab Data Labs: Laboratory Results - last 24 hr 05/26/22 05/26/22 05/26/22 00:11 00:11 01:10 WBC 7.1 RBC 4.05 L Hgb 11.6 L Hct 36.2 L MCV 89.4 MCH 28.6 MCHC 32.0 RDW Std Deviation 45.3 H RDW Coeff of Ju 13.7 Plt Count 227 MPV 10.2 Immature Gran % (Auto) 0.100 Neut % (Auto) 48.9 Lymph % (Auto) 43.2 H [place] % (Auto) 6.4 Eos % (Auto) 1.0 Baso % (Auto) 0.4 Absolute Neuts (auto) 3.5 Absolute Lymphs (auto) 3.06 Nucleated RBC % 0 Sodium 140 Potassium 3.9 Chloride 109 H Carbon Dioxide 26.0 Anion Gap 5 BUN 15 Creatinine 0.75 Estim Creat Clear Calc 85.24 Est GFR (MDRD) Af Amer 110 Est GFR (MDRD) Non-Af 91 BUN/Creatinine Ratio 20.1 H Glucose 110 H Calcium 8.5 Total Bilirubin 0.20 Direct Bilirubin 0.08 AST 9 L ALT 12 L Alkaline Phosphatase 77 Troponin I High Sens 4 Total Protein 7.0 Albumin 3.0 L Globulin 4.0 Lipase 58 L Urine Color Yellow Urine Clarity Sl. Cloudy Urine pH 6.0 Ur Specific [place] 1.015 Urine Protein Negative Urine Glucose (UA) Normal Urine Ketones Negative Urine Occult Blood Negative Urine Nitrite Negative Urine Bilirubin Negative Urine Urobilinogen Normal Ur Leukocyte Esterase 25 H Urine RBC 0-5 SEEN Urine WBC 0-5 SEEN Ur Squamous Epith Cells 5-10 SEEN Urine Bacteria 3+ Urine Mucus 0 SEEN Urine Test Negative Radiography Diagnostic Testing: Clinical Impression(s) from Imaging Studies Abdomen/Pelvis CT 05/26/22 00:08 IMPRESSION: 1. Noncalcified gallstones in a thick-walled gallbladder. Findings are suspicious for cholecystitis. 2. Previous gastric sleeve procedure. Small hiatal hernia. 3. Small umbilical hernia contains fat, but no bowel. Electronically Signed: Esdras Reyes MD at 2:10 EST Reading Location ID and State: [facility] / [place] , Service support , Rhythm Strip Rhythm Strip: Sinus Rhythm Rate: 54 Ectopy: None EKG Initial EKG: Attestation: I personally reviewed and interpreted this EKG as follows: Interpretation: Sinus Bradycardia Comments: Sinus bradycardia rate of 54 Normal axis Normal intervals Normal ST segments Compared to prior EKG on 12/05/2018 no significant changes Discharge Plan Triage Chief Complaint: Abd Pain ED Provider: Mimi Harmon Dx/Rx/DC Orders Clinical Impression: Gallstones, Biliary colic, Nausea & vomiting Instructions: ED Gallstones with Biliary Colic Prescriptions: New oxycodone-acetaminophen [Percocet] 5-325 mg tablet 1 tab PO Q6H PRN (Reason: pain) 3 Days Qty: 12 0RF ondansetron 4 mg tablet,disintegrating 4 mg PO Q6H PRN (Reason: nausea and vomiting) Qty: 20 0RF pantoprazole [Protonix] 20 mg tablet,delayed release (DR/EC) 20 mg PO DAILY Qty: 14 0RF No Action apple cider vinegar 300 mg tablet 300 mg PO DAILY ascorbic acid-elderberry fruit [Airborne (elderberry)] 100-50 mg tablet,chewable 1 tab PO DAILY PRN PRN (Reason: immune) ascorbate calcium (vitamin C) 500 mg tablet 500 mg PO DAILY cyclobenzaprine 10 mg tablet 10 mg PO BID PRN (Reason: muscle spasm) Qty: 14 0RF Primary Care Provider: Shayna Quigley Referrals: Salvatore Brooks MD [Non-Staff] - Shayna Quigley MD [Primary Care Provider] - Lacho Pelletier MD [Non-Staff] - Activity Restrictions/Additional Instructions: While we recommended transfer for further evaluation of your gallbladder and possible acute cholecystitis I understand that social situations prevent you from being admitted to the hospital at this time. If your pain returns/worsens please return immediately to either our emergency room or a local ER such as [facility], [facility], [facility] or [facility]. At this time we do not have the bariatric laparoscopic equipment to perform your gallbladder surgery. I have given you information for a surgeon through [facility] (Dr. Pelletier) as well as [facility] (Dr. Brooks) there is also surgeons at [facility] such as Doctor Bourgeois. Try to s tick to a low-fat diet in the meantime. If you develop a fever or have continued vomiting please come seek emergent medical evaluation. Disposition Disposition: Home, Self Care
[2022-05-26 00:22] LABS: Absolute Lymphocyte Count 3.06 X10^3/uL (0.83-4.51); Absolute Neutrophil Count 3.5 X10^3/uL (2.0-7.7); Basophil# 0.03 X10^3/uL; Basophil% 0.4 % (0-1); Eosinophil# 0.07 X10^3/uL; Hematocrit 36.2 % (37-47); Hemoglobin 11.6 g/dL (12.0-15.0); Lymphocyte # 3.06 X10^3/ul (0.83-4.51); Lymphocyte % 43.2 % (19-41); Mean Corpuscular Hgb 28.6 pg (27.0-32.0); Mean Corpuscular Volume 89.4 fL (81-99); Mean Platelet Vol. 10.2 fl (6.2-12.0); Monocyte# 0.45 X10^3/uL; Monocyte% 6.4 % (0-10); NRBC Flagged by Analyzer 0 % (0-5); Neutrophil # 3.46 X10^3/uL (2.7-7.7); Neutrophil % 48.9 % (47-70); Platelet Count 227 K/mm3 (150-450); RBC Distribution Width CV 13.7 % (11.6-14.6); RBC Distribution Width SD 45.3 fl (35.1-43.9); Red Blood Count 4.05 M/mm3 (4.2-5.4); White Blood Count 7.1 K/mm3 (4.4-11.0)
[2022-05-26] MEDS: Morphine 4 MG/ML Syringe IV (00:30)
[2022-05-26] MEDS: 0.9% Normal Saline 1,000 ML 1000 ML IV (00:30)
[2022-05-26] MEDS: Ondansetron 4 MG/2 ML Vial IV (00:30)
[2022-05-26 00:41] LABS: BUN 15 mg/dL (7-18); BUN/Creat Ratio 20.1 RATIO (10-20); Creatinine, Serum 0.75 mg/dL (0.55-1.02); EST Glomerular Filtration Rate 91 mL/min (>60); Est Glom Filt Rate - Afr Amer 110 mL/min (>60); Estimated Creatinine Clearance 85.24 ml/min; Glucose 110 mg/dL (74-106)
[2022-05-26 00:42] LABS: AST(SGOT) 9 U/L (15-37); Alanine Aminotransfer ALT/SGPT 12 U/L (13-56); Alkaline Phosphatase 77 U/L (45-117); Anion Gap 5 (5-15); Bilirubin, Direct 0.08 mg/dL (0.00-0.30); Calcium,Total 8.5 mg/dL (8.5-10.1); Chloride 109 mmol/L (98-107); Lipase 58 U/L (73-393); Potassium 3.9 mmol/L (3.5-5.1); Sodium Level 140 mmol/L (136-145); Troponin-I HS 4 pg/mL (3.0-54.0)
[2022-05-26 01:16] LABS: Mucous, Urine 0 SEEN /hpf (<or=2+)
[2022-05-26 01:18] LABS: Color, Urine Yellow (Yellow); Glucose, Dipstick Normal (Normal); Ketone-Dipstick Negative (Negative); Leukocyte Esterase-Dipstick 25 /ul (Negative); Nitrite-Dipstick Negative (Negative); Occult Blood-Urine Negative /ul (Negative); Protein-Dipstick Negative (Negative); Specific Gravity, Urine 1.015 (1.002-1.030); Urine Bilirubin Dipstick Negative (Negative); Urine Clarity Sl. Cloudy (Clear); Urine Urobilinogen Normal (Normal)
[2022-05-26 01:19] LABS: Internal QC Validated? YES +Cl - CLEAR BKGD; Pregnancy, Urine Negative Negative
[2022-05-26 01:31] LABS: Bacteria 3+ /hpf (None Seen); Red Blood Cells-Urine 0-5 SEEN /hpf (0-5); Squamous Epithelial Cells - UA 5-10 SEEN /hpf (5-10); White Blood Cells 0-5 SEEN /hpf (0-5)
[2022-05-26 02:07] VITALS: RESP 17
[2022-05-26 04:49] VITALS: BP 127/79; PULSE 66; RESP 15; O2SAT 100
== END 2022-05-26 04:50 | disposition home or self-care (01) ==
PROVIDERS: Emergency Provider Emergency Medicine; PCP Internal Medicine; Visit Provider Emergency Medicine
DX: K80.60 Calculus of gallbladder and bile duct with cholecystitis, unspecified, without obstruction (principal); R11.2 Nausea with vomiting, unspecified
CPT/HCPCS: 74177; 80048; 80076; 81001; 81025; 83690; 84484; 85025; 93005; 96365; 96367; 96375; 99283; J7030; Q9967; A4216; J2405

== ENCOUNTER 2022-05-30 03:04 | Emergency (ER) | payer MEDICAID, SELFPAY ==
[2022-05-30 03:04] VITALS: BP 120/72; PULSE 80; RESP 18; TEMP 36.6; O2SAT 99; BMI 61.5
--- NOTE | 2022-05-30 03:15 | EDS_ITS ---
HPI History of Present Illness Chief Complaint: Rash Informant: patient Narrative Narrative: Patient states that she started itching after taking the Zofran. It seems to increase after Zofran. She states she has been on all the other meds in the past with no problems. Zofran she has never taken. She thinks she has had Phenergan before. She is not having any trouble breathing. She states she has a few red spots on her skin but mostly pruritus. She states she is not having the abdominal pain anymore. She is going to follow-up with her surgeon regarding the gallbladder. But she states she not uncommonly gets nauseated with certain meals and she does better if she has something for nausea available. She has not been vomiting though. Patient also complains that she has been having some white vaginal itch and burn. This is consistent with a yeast infection. She states she has had these before related to obesity. But she has never been diabetic. I verified that all the blood sugars that we have are at or very near normal including 1 just on days ago. Nothing specifically is making any of the symptoms better. The Zofran makes the itching worse [facility] Medical History Asthma Back problem Bilateral knee pain Gallstones History of abnormal cervical Pap smear Knee pain Multiple thyroid nodules Preventative health care Shoulder pain Home Medications ascorbate calcium (vitamin C) 500 mg tablet 500 mg PO DAILY 08/06/20 [History Last Taken Unknown] ascorbic acid 100 mg-elderberry fruit 50 mg chewable tablet (Airborne (elderberry)) 1 tab PO DAILY PRN PRN immune 08/06/20 [History Last Taken Unknown] apple cider vinegar 300 mg tablet 300 mg PO DAILY 11/10/20 [History Last Taken Unknown] cyclobenzaprine 10 mg tablet 10 mg PO BID PRN muscle spasm #14 tabs 03/23/22 [Rx Last Taken Unknown] ondansetron 4 mg disintegrating tablet 4 mg PO Q6H PRN nausea and vomiting #20 tabs 05/26/22 [Rx Last Taken Unknown] oxycodone-acetaminophen 5 mg-325 mg tablet (Percocet) 1 tab PO Q6H PRN pain 3 days #12 tabs 05/26/22 [Rx Last Taken Unknown] pantoprazole 20 mg tablet,delayed release (Protonix) 20 mg PO DAILY #14 tabs 05/26/22 [Rx Last Taken Unknown] fluconazole 150 mg tablet (Diflucan) 150 mg PO QWEEK 2 doses #1 TAB 05/30/22 [Rx Last Taken Unknown] hydroxyzine HCl 25 mg tablet 25 mg PO TID PRN itching #20 tabs 05/30/22 [Rx Last Taken Unknown] promethazine 25 mg tablet 25 mg PO Q6H PRN nausea and vomiting #14 tabs 05/30/22 [Rx Last Taken Unknown] Allergy/AdvReac Type Severity Reaction Status Date / Time No Known Allergies Allergy Verified 05/25/22 23:46 Family History Mother Myocardial infarction Hypertension Heart disease Grandmother Hypertension Cancer lung Surgical History Bariatric surgery status History of esophagogastroduodenoscopy (EGD) Social History Smoking Status: Never smoker alcohol intake: never substance use type: does not use caffeine: Yes what type of physical activity do you participate in: none seatbelt use: always do you feel safe at home: Yes 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 Integumentary Reports rash and other Endocrine Endocrinology: Denies polydipsia or polyuria Hematologic/Lymphatic Hematologic/Lymphatic: Reports lymphadenopathy Allergic/Immunologic Allergic/Immunologic ED: Reports other Details: Slight red spots but no real hives per patient ; Denies urticaria EXAM Physical Exam Const Vital Signs: 05/30/22 03:04 Temperature 97.9 F Temperature Source Temporal Pulse Rate 80 Respiratory Rate 18 Blood Pressure 120/72 Blood Pressure Mean 88 Pulse Ox 99 Oxygen Delivery Method Room Air Positive well nourished and well developed Constitutional Narrative: Patient is scratching but no acute distress. No obvious dyspnea. General Appearance ED: well developed and NAD; Negative for cyanotic or diaphoretic HEENT Reports moist mucous membranes HEENT Narrative: No oral swelling or thrush Eyes General Eye ED: Negative for pale conjunctiva or scleral icterus Neck Neck Narrative: No stridor. Resp normal respiratory effort Auscultation: Negative for wheezes Cardio regular rate and regular rhythm GI normal to inspection, nondistended, normoactive bowel sounds and non-tender Palpation: soft Back/Spine no CVA tenderness Extremity General Extremety ED: Negative for tenderness Neuro Sensorium / Orientation: alert Skin Skin Narrative: Patient does have some small red blotches diffusely and evenly spaced throughout her body. But they are not really raised or red. They are not petechiae or purpura. She does have signs of excoriation. MDM MDM MDM Narrative Medical decision making narrative: We will have the patient stop to Zofran. If she needs something for nausea we will write for Phenergan. She reports she has used this before. I will write hydroxyzine for the itch. I will also write for some Diflucan. I will give her a dose of that here. I also explained she can use [id number] Monistat. We discussed reasons to return. Discharge Plan Triage Chief Complaint: Rash ED Provider: Jhony Zavaleta Dx/Rx/DC Orders Clinical Impression: Allergy history, drug, Pruritus, Vaginal yeast infection Instructions: ED General Allergic Reactions Prescriptions: New fluconazole [Diflucan] 150 mg tablet 150 mg PO QWEEK Qty: 1 0RF hydroxyzine HCl 25 mg tablet 25 mg PO TID PRN (Reason: itching) Qty: 20 0RF promethazine 25 mg tablet 25 mg PO Q6H PRN (Reason: nausea and vomiting) Qty: 14 0RF No Action apple cider vinegar 300 mg tablet 300 mg PO DAILY ascorbic acid-elderberry fruit [Airborne (elderberry)] 100-50 mg tablet,chewable 1 tab PO DAILY PRN PRN (Reason: immune) ascorbate calcium (vitamin C) 500 mg tablet 500 mg PO DAILY cyclobenzaprine 10 mg tablet 10 mg PO BID PRN (Reason: muscle spasm) Qty: 14 0RF oxycodone-acetaminophen [Percocet] 5-325 mg tablet 1 tab PO Q6H PRN (Reason: pain) 3 Days Qty: 12 0RF ondansetron 4 mg tablet,disintegrating 4 mg PO Q6H PRN (Reason: nausea and vomiting) Qty: 20 0RF pantoprazole [Protonix] 20 mg tablet,delayed release (DR/EC) 20 mg PO DAILY Qty: 14 0RF Primary Care Provider: Shayna Quigley Referrals: Shayna Quigley MD [Primary Care Provider] - 1 Week if not improving Disposition Disposition: Home, Self Care
[2022-05-30] MEDS: Fluconazole 100 MG Tablet PO (03:32)
[2022-05-30] MEDS: hydrOXYzine PAM 25 MG Capsule PO (03:32)
== END 2022-05-30 03:33 | disposition home or self-care (01) ==
PROVIDERS: Emergency Provider Emergency Medicine; PCP Internal Medicine; Visit Provider Emergency Medicine
DX: L29.9 Pruritus, unspecified (principal); B37.31 Acute candidiasis of vulva and vagina
CPT/HCPCS: 99283

== ENCOUNTER → 2023-02-13 | Outpatient (CLI) | payer OTHER, SELFPAY ==
[2023-02-13 16:39] LABS: Absolute Lymphocyte Count 2.37 X10^3/uL (0.83-4.51); Absolute Neutrophil Count 2.3 X10^3/uL (2.0-7.7); Basophil# 0.04 X10^3/uL; Basophil% 0.8 % (0-1); Eosinophil# 0.06 X10^3/uL; Eosinophils% 1.2 % (0-5); Hemoglobin 13.1 g/dL (12.0-15.0); Lymphocyte # 2.37 X10^3/ul (0.83-4.51); Lymphocyte % 46.6 % (19-41); Mean Corp Hgb Conc 32.8 g/dL (32-36); Mean Corpuscular Hgb 29.1 pg (27.0-32.0); Mean Corpuscular Volume 88.9 fL (81-99); Mean Platelet Vol. 10.7 fl (6.2-12.0); Monocyte# 0.32 X10^3/uL; Monocyte% 6.3 % (0-10); NRBC Flagged by Analyzer 0 % (0-5); Neutrophil # 2.29 X10^3/uL (2.7-7.7); Neutrophil % 44.9 % (47-70); Platelet Count 249 K/mm3 (150-450); RBC Distribution Width CV 13.3 % (11.6-14.6); RBC Distribution Width SD 43.5 fl (35.1-43.9); White Blood Count 5.1 K/mm3 (4.4-11.0)
[2023-02-13 17:22] LABS: ALB/GLOB Ratio 0.8 RATIO (0.9-2.4); AST(SGOT) 14 U/L (15-37); Alanine Aminotransfer ALT/SGPT 15 U/L (13-56); Albumin, Serum 3.3 g/dL (3.2-5.0); Alkaline Phosphatase 94 U/L (45-117); Anion Gap 5 (5-15); BUN 14 mg/dL (7-18); BUN/Creat Ratio 19.8 RATIO (10-20); Calcium,Total 8.7 mg/dL (8.5-10.1); Chloride 109 mmol/L (98-107); Cholesterol 209 mg/dL (200); Creatinine, Serum 0.71 mg/dL (0.55-1.02); EST Glomerular Filtration Rate 96 mL/min (>60); Est Glom Filt Rate - Afr Amer 117 mL/min (>60); Globulin 4.4 g/dL (2.2-4.2); Glucose 89 mg/dL (74-106); High Density Lipoprotein 77 mg/dL; Potassium 4.1 mmol/L (3.5-5.1); Protein, Total 7.7 g/dL (6.4-8.2); Sodium Level 140 mmol/L (136-145); Triglycerides 78 mg/dL; Very Low Density Lipoprotein 16 mg/dL (5-40)
== END | disposition home or self-care (01) ==
LOC: BIMLAB 15:06
PROVIDERS: PCP Internal Medicine; Referring Provider Internal Medicine; Visit Provider Internal Medicine
DX: Z00.00 Encounter for general adult medical examination without abnormal findings (principal)
CPT/HCPCS: 36415; 80053; 80061; 85025

== ENCOUNTER 2024-08-05 17:56 | Emergency (ER) | payer SELFPAY ==
[2024-08-05 17:57] VITALS: BP 136/103; PULSE 98; RESP 16; TEMP 36.8; O2SAT 98; BMI 61.7
--- NOTE | 2024-08-05 22:45 | EX.ED.DYSGE1 ---
HPI History of Present Illness Chief Complaint: Sore Throat Informant: patient Narrative Narrative: Patient is a 44-year-old female with history of thyroid nodule and asthma. She states she was sick roughly a week ago and then began to get better. However in the last 1 to 2 days she has had sore throat with subjective fevers and chills and fatigue. With concern for repeat infection she presents for evaluation. [facility] Medical History Need for history and physical examination for employment Preventative health care Bilateral knee pain History of abnormal cervical Pap smear Multiple thyroid nodules Shoulder pain Knee pain Gallstones Back problem Asthma Home Medications ?Medication ?Instructions ?Recorded ?Last Taken ?Type amoxicillin 875 mg-potassium 1 tab PO BID 10 days #20 tabs 08/05/24 Unknown Rx clavulanate 125 mg tablet prednisone 20 mg tablet 40 mg (2 x 20 mg) PO DAILY 5 days 08/05/24 Unknown Rx #10 tabs Allergy/AdvReac Type Severity Reaction Status Date / Time No Known Allergies Allergy Verified 08/05/24 17:56 Family History Mother Myocardial infarction Hypertension Heart disease Grandmother Hypertension Cancer lung Surgical History Bariatric surgery status History of esophagogastroduodenoscopy (EGD) Social History (Updated 08/05/24 @ 22:37 by Nilam Davila) household members: family and children housing: house Smoking Status: Never smoker alcohol intake: current alcohol intake frequency: holidays/special occasions only substance use type: does not use caffeine: Yes Type: coffee Number of servings: 2 what type of physical activity do you participate in: none seatbelt use: always do you feel safe at home: Yes 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 ROS ROS ED Constitutional Constitutional ED: Reports chills, fever(s) and subjective Eyes Eyes: Denies change in vision ENT ENT ED: Reports rhinorrhea and sore throat Cardiovascular Cardiovascular: Denies chest pain Respiratory/Chest Respiratory/Chest: Denies cough or dyspnea Gastrointestinal Gastrointestinal: Denies abdominal pain, diarrhea, nausea or vomiting Genitourinary Genitourinary ED: Denies dysuria Musculoskeletal Musculoskeletal: Denies myalgias Integumentary Denies rash Neurologic Neurologic: Reports headache(s) and weakness Hematologic/Lymphatic Hematologic/Lymphatic: Denies easy bleeding or easy bruising Allergic/Immunologic Allergic/Immunologic ED: Denies mouth swelling or tongue swelling EXAM Physical Exam Const Vital Signs: 08/05/24 17:57 08/05/24 22:57 Temperature 98.2 F 98.2 F Temperature Source Temporal Pulse Rate 98 98 Respiratory Rate 16 16 Blood Pressure 136/103 H 138/89 H Blood Pressure Mean 114 105 Pulse Ox 98 98 Oxygen Delivery Method Room Air Positive well nourished, well developed and obese General Appearance ED: well developed; Negative for pallor Nutritional Appearance: obese HEENT HEENT Narrative: There is erythema noted in the posterior pharynx +2 tonsil hypertrophy is present bilaterally There is exudates present on both tonsils as well No trismus change in voice or difficulty with secretions. No physical exam findings to suggest abscess or epiglottitis. Eyes PERRL and EOMs intact bilaterally General Eye ED: Negative for scleral icterus Neck supple Neck Narrative: Positive tender anterior cervical lymphadenopathy noted Resp normal respiratory effort and clear to auscultation bilaterally Cardio regular rate and regular rhythm Extremity normal to inspection Neuro oriented x3, CN's II-XII intact bilaterally and no sensory deficits noted Sensorium / Orientation: alert Motor Exam: strength 5/5 throughout Psych mental status grossly normal Skin no rashes or lesions noted and no wounds General Skin Exam: Negative for jaundice or pallor MDM MDM MDM Narrative Medical decision making narrative: Patient presented to the ER with stable vitals and in no acute distress. She reported 1 to 2 days of sore throat. Differential diagnosis is for strep pharyngitis versus viral pharyngitis versus mononucleosis versus epiglottitis versus peritonsillar abscess versus uvulitis. Physical exam did not show change in voice or difficulty with secretions or trismus and there is no unilateral tonsillar protruding therefore concern for peritonsillar abscess or epiglottitis is low and I do not feel there is a need for a CT of the neck. With stable vitals concern for systemic infection is low as well such as sepsis and therefore there is no need for laboratory testing other than a strep swab. The patient's swab was positive which correlates with her history and exam but as she does not have signs of systemic infection or peritonsillar abscess or epiglottitis there is no need for further workup and she is otherwise safe for discharge History & Record Review Discussion w/independent historian: Patient Discharge Plan Triage Chief Complaint: Sore Throat ED Provider: Jah Narayanan Dx/Rx/DC Orders Clinical Impression: Acute streptococcal pharyngitis, Multiple thyroid nodules, Asthma Instructions: ED Pharyngitis, Strep (Confirmed) Prescriptions: New amoxicillin-pot clavulanate 875-125 mg tablet 1 tab PO BID 10 Days Qty: 20 0RF prednisone 20 mg tablet 40 mg PO DAILY 5 Days Qty: 10 0RF Stand Alone Forms: ED Work / School Excuse Primary Care Provider: Shayna Quigley Referrals: Shayna Quigley MD [Primary Care Provider] - Print Language: Setswana Disposition Disposition: Home, Self Care Discharge Date/Time: 08/05/24 22:58
[2024-08-05] MEDS: dexAMETHasone 10 MG/ML Vial PO.IVFORM (22:53)
[2024-08-05] MEDS: oxyCODONE 5 MG Tablet 10 MG PO (22:53)
[2024-08-05] MEDS: Amox/Clavulanate 875 MG Tablet PO (22:53)
[2024-08-05 22:57] VITALS: BP 138/89; PULSE 98; RESP 16; TEMP 36.8; O2SAT 98
== END 2024-08-05 22:58 | disposition home or self-care (01) ==
LOC: ED 22:49
PROVIDERS: Emergency Provider Emergency Medicine; PCP Internal Medicine; Visit Provider Emergency Medicine
DX: J02.0 Streptococcal pharyngitis (principal); E04.2 Nontoxic multinodular goiter; J45.909 Unspecified asthma, uncomplicated; E66.9 Obesity, unspecified
CPT/HCPCS: 87651; 99283

== ENCOUNTER → 2024-08-21 | Outpatient (CLI) | payer SELFPAY ==
[2024-08-21 16:52] LABS: Absolute Lymphocyte Count 2.49 X10^3/uL (0.83-4.51); Absolute Neutrophil Count 3.7 X10^3/uL (2.0-7.7); Basophil# 0.02 X10^3/uL; Basophil% 0.3 % (0-1); Eosinophil# 0.05 X10^3/uL; Eosinophils% 0.7 % (0-5); Hematocrit 40.5 % (37-47); Hemoglobin 13.1 g/dL (12.0-15.0); Lymphocyte # 2.49 X10^3/ul (0.83-4.51); Lymphocyte % 37.3 % (19-41); Mean Corp Hgb Conc 32.3 g/dL (32-36); Mean Corpuscular Hgb 29.2 pg (27.0-32.0); Mean Corpuscular Volume 90.2 fL (81-99); Mean Platelet Vol. 9.9 fl (6.2-12.0); Monocyte# 0.43 X10^3/uL; Monocyte% 6.4 % (0-10); NRBC Flagged by Analyzer 0 % (0-5); Neutrophil # 3.66 X10^3/uL (2.7-7.7); Platelet Count 283 K/mm3 (150-450); RBC Distribution Width CV 13.5 % (11.6-14.6); RBC Distribution Width SD 44.7 fl (35.1-43.9); Red Blood Count 4.49 M/mm3 (4.2-5.4); White Blood Count 6.7 K/mm3 (4.4-11.0)
[2024-08-21 17:20] LABS: ALB/GLOB Ratio 0.7 RATIO (0.9-2.4); AST(SGOT) 16 U/L (15-37); Alanine Aminotransfer ALT/SGPT 16 U/L (13-56); Albumin, Serum 3.5 g/dL (3.2-5.0); Alkaline Phosphatase 96 U/L (45-117); Anion Gap 5 (5-15); BUN 15 mg/dL (7-18); BUN/Creat Ratio 20.4 RATIO (10-20); Calcium,Total 9.2 mg/dL (8.5-10.1); Chloride 106 mmol/L (98-107); Cholesterol 235 mg/dL (200); Creatinine, Serum 0.74 mg/dL (0.55-1.02); EST Glomerular Filtration Rate 92 mL/min (>60); Est Glom Filt Rate - Afr Amer 111 mL/min (>60); Globulin 4.8 g/dL (2.2-4.2); Glucose 94 mg/dL (74-106); High Density Lipoprotein 78 mg/dL; Potassium 4.2 mmol/L (3.5-5.1); Protein, Total 8.3 g/dL (6.4-8.2); Sodium Level 137 mmol/L (136-145); Triglycerides 102 mg/dL; Very Low Density Lipoprotein 20 mg/dL (5-40)
== END | disposition home or self-care (01) ==
LOC: BIMLAB 16:16
PROVIDERS: PCP Internal Medicine; Referring Provider Internal Medicine; Visit Provider Internal Medicine
DX: Z00.00 Encounter for general adult medical examination without abnormal findings (principal)
CPT/HCPCS: 36415; 80053; 80061; 85025